=== PATIENT | female | born 1945 | race Caucasian/White ===

== ENCOUNTER 2023-11-10 12:44 | Inpatient (IN) | payer MEDICARE, OTHER, SELFPAY ==
[2023-11-10] VITALS (16 sets, daily range): BP systolic 14–123; BP diastolic 45–87; PULSE 78–97; BMI 26.8
--- NOTE | 2023-11-10 09:46 | ED.GENMED ---
History of Present Illness
<Loi Mann PA-C - Last Filed: 11/10/23 11:46>
General
Chief Complaint: Rectal Bleeding
Source: patient
Exam Limitations: none
Time Seen by Provider: 11/10/23 09:35
Travel History
Have you had any contact with someone who has COVID-19?: No
Do you have any symptoms of coronavirus? Fever > 100 degrees, chills, cough, shortness of breath, sore throat, loss of taste or smell, muscle aches, or headache?: No
History of Present Illness
History of Present Illness:
78-year-old female presents via EMS from home after 2 episodes of bright red blood per rectum overnight and this morning. She feels dizzy and lightheaded. She was noted to be pale and hide by EMS. She is not anticoagulated. She has been on
naproxen twice a day for her right hip pain. She notes half a glass of wine daily and a couple coffee daily. She denies abdominal pain. She denies rectal pain. No chest pain or shortness of breath. No other complaints at this time
Past History
<Loi Mann PA-C - Last Filed: 11/10/23 11:46>
Past History
ED Past Medical History: Asthma, CAD, Cancer (Squamous cell), GERD, HTN, Hypercholesterolemia, Valvular disease, Psychiatric (Depression) and Other (Peptic ulcer disease, aortic stenosis, chronic kidney disease, peripheral vascular disease)
ED Past Surgical History: Cholecystectomy, Orthopedic (Right and left shoulder replacement, Left humorous ), Tonsilectomy and Other (Cataracts)
Social History
Tobacco: Former smoker
Alcohol: Occasional
Drug: None
Personal:
Living: with family
Employment: Employed
Phy Exam
<Loi Mann PA-C - Last Filed: 11/10/23 11:46>
Physical Exam
Physical Exam:
General: Well-appearing female no acute respiratory distress does appear slightly pale
HEENT: Normocephalic atraumatic
Heart: Regular rate and rhythm no murmurs
Lungs: Clear no wheeze or rales
Abdomen: Soft nontender nondistended
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 There is no obvious external hemorrhoid or fissure. Stool in the tip of the glove is dark red and heme positive
Extremities: No cyanosis
Course
<Loi Mann PA-C - Last Filed: 11/10/23 11:46>
Orders/Labs/Results
Orders:
Orders
11/10/23 09:43
0.9% Sodium Chloride 1000 ml [Nss] 1,000 ml IV BOLUS
Pantoprazole [Protonix IV] 80 mg IV NOW STA
11/10/23 09:45
Pantoprazole 80 mg/100 ml Nss [Protonix] 80 mg in 100 ml IV Q10H
11/10/23 09:53
Sterile Water [Sterile Water For Injection] 20 ml .ROUTE .STK-MED
11/10/23 10:16
Type+Screen Urgent
Complete Blood Count/With Diff Urgent
Comprehensive Metabolic Panel Urgent
PTT Urgent
Prothrombin Time Urgent
Abnormal Lab Results
11/10/23
10:16
WBC 16.3 H 10^3/uL
(4.8-10.8)
RBC 3.22 L 10^6/uL
(4.20-5.40)
Hgb 9.8 L g/dL
(12.0-16.0)
Hct 28.5 L %
(37.0-47.0)
MPV 11.1 H fL
(7.4-10.4)
Abs Immat Gran (auto) 0.1 H 10^3/uL
(0-0.05)
Absolute Neuts (auto) 14.2 H 10^3/uL
(1.4-6.5)
Absolute Lymphs (auto) 1.1 L 10^3/uL
(1.2-3.4)
Absolute Monos (auto) 0.8 H 10^3/uL
(0.1-0.6)
Immature Gran % 0.8 H %
(0-0.5)
Neutrophils % 86.7 H %
(42.2-75.2)
Lymphocytes % 6.4 L %
(20.5-51.1)
Sodium 130 L mmol/L
(135-145)
Potassium 5.4 H mmol/L
(3.5-5.1)
Carbon Dioxide 19 L mmol/L
(22-30)
BUN 46 H mg/dl
(7-17)
Glucose 118 H mg/dl
(70-99)
Total Protein 5.8 L g/dl
(6.3-8.2)
11/10/23 10:16
11/10/23 10:16
Vital Signs
Initial and Last Documented VS:
Initial Vital Signs
Pulse Resp BP Pulse Ox
104 15 76/53 100
11/10/23 09:35 11/10/23 09:35 11/10/23 09:35 11/10/23 09:35
Last Documented Vital Signs
Pulse Resp BP Pulse Ox
87 21 96/52 100
11/10/23 10:30 11/10/23 10:30 11/10/23 10:22 11/10/23 09:35
<Rafael Merrill, DO - Last Filed: 11/10/23 10:45>
Orders/Labs/Results
Orders:
Orders
11/10/23 09:43
0.9% Sodium Chloride 1000 ml [Nss] 1,000 ml IV BOLUS
Pantoprazole [Protonix IV] 80 mg IV NOW STA
11/10/23 09:45
Pantoprazole 80 mg/100 ml Nss [Protonix] 80 mg in 100 ml IV Q10H
11/10/23 09:53
Sterile Water [Sterile Water For Injection] 20 ml .ROUTE .STK-MED
11/10/23 10:16
Type+Screen Urgent
Complete Blood Count/With Diff Urgent
Comprehensive Metabolic Panel Urgent
PTT Urgent
Prothrombin Time Urgent
Abnormal Lab Results
11/10/23
10:16
WBC 16.3 H 10^3/uL
(4.8-10.8)
RBC 3.22 L 10^6/uL
(4.20-5.40)
Hgb 9.8 L g/dL
(12.0-16.0)
Hct 28.5 L %
(37.0-47.0)
MPV 11.1 H fL
(7.4-10.4)
Abs Immat Gran (auto) 0.1 H 10^3/uL
(0-0.05)
Absolute Neuts (auto) 14.2 H 10^3/uL
(1.4-6.5)
Absolute Lymphs (auto) 1.1 L 10^3/uL
(1.2-3.4)
Absolute Monos (auto) 0.8 H 10^3/uL
(0.1-0.6)
Immature Gran % 0.8 H %
(0-0.5)
Neutrophils % 86.7 H %
(42.2-75.2)
Lymphocytes % 6.4 L %
(20.5-51.1)
Sodium 130 L mmol/L
(135-145)
Potassium 5.4 H mmol/L
(3.5-5.1)
Carbon Dioxide 19 L mmol/L
(22-30)
BUN 46 H mg/dl
(7-17)
Glucose 118 H mg/dl
(70-99)
Total Protein 5.8 L g/dl
(6.3-8.2)
11/10/23 10:16
11/10/23 10:16
Vital Signs
Initial and Last Documented VS:
Initial Vital Signs
Pulse Resp BP Pulse Ox
104 15 76/53 100
11/10/23 09:35 11/10/23 09:35 11/10/23 09:35 11/10/23 09:35
Last Documented Vital Signs
Pulse Resp BP Pulse Ox
87 21 96/52 100
11/10/23 10:30 11/10/23 10:30 11/10/23 10:22 11/10/23 09:35
Procedures
<Rafael Merrill DO - Last Filed: 11/10/23 10:45>
IV Access
Indication: Physician skill needed
Performed by:: Rafael Merrill DO
Site:: left arm
Gauge:: 18
Ultrasound Guidance: Yes
<Loi Mann PA-C - Last Filed: 11/10/23 11:46>
MDM/Problems Addressed
Differential Diagnosis Includes:
Rectal bleeding. Consider hemorrhoidal versus diverticular versus rapid upper GI bleed. Patient is hypotensive here. She has heme positive stool on exam. Will check labs. Start fluids. Blood consent signed. Will likely need to stay in hospital
<Loi Mann PA-C - Last Filed: 11/10/23 11:46>
*Critical Care Note
Total Time (30-74mins, 75-104mins- exclusive of procedures): Not Applicable
<Loi Mann PA-C - Last Filed: 11/10/23 11:46>
Update Note
Update Note:
Hemoglobin 9.8. BUN 46 creatinine 0.9. Blood pressure improving with fluids. Heart rate has normalized. Restarted Protonix and had her sign blood consent. Will admit to hospital with GI consult
ED Attending Note
<Loi Mann PA-C - Last Filed: 11/10/23 11:46>
-
Portions of this chart may have been created with voice recognition software.� Occasional wrong word or��sound alike� substitutions may have occurred due to the inherent limitations of voice recognition software.
<Rafael Merrill DO - Last Filed: 11/10/23 10:45>
ED Attending Note
Patient seen and examined by attending physician: Yes
I performed the substantive portion of visit, reviewed & personally made and approve the management plan that is documented in note by myself or MATTHEW.: Yes
ED Attending Note:
I have seen and evaluated the patient with a [id number] encounter. I have spoken to the advance practicer provider and involved in the medical history, the physical exam, medical decision making.
Evaluation and management service: agree unless noted differently below.
Results interpretation: agree unless noted differently below.
Focused HPI: 78-year-old female presenting with few episodes of dark red rectal bleeding. Patient denies being on blood thinners. The bleeding occurs with defecation. She denies abdominal pain
Physical exam: Pale. Hypotensive. Abdomen soft and nontender
Medical Decision Making: Patient has evidence of GI bleed. Patient started on Protonix drip. Patient requiring 2 peripheral IV lines. She is consented for blood with hemoglobin pending
Discharge Plan
Departure
Patient Disposition: Admit
Date of Disposition: 11/10/23
Time of Disposition: 11:45
Admit to: Telemetry
Presentation/result/management discussed w/ accepting MD/DO: Hospitalist
Discharge Problem:
Acute GI bleeding
Prescriptions:
No Action
zolpidem [Ambien] 5 mg Tablet
5 mg PO HS PRN (Reason: sleep)
escitalopram oxalate 20 mg Tablet
20 mg PO DAILY
bupropion HCl 300 mg Tablet Extended Release 24 Hr
300 mg PO DAILY
simvastatin 10 mg Tablet
10 mg PO HS
olanzapine [Zyprexa] 2.5 mg Tablet
2.5 mg PO HS
lisinopril 20 mg Tablet
20 mg PO DAILY
aspirin 81 mg Tablet,Delayed Release (Dr/Ec)
81 mg PO HS
naproxen 500 mg Tablet
500 mg PO [id number] PRN (Reason: radiculopathy, lumbar region)
biotin
1 tab PO HS
melatonin
2 tab PO HSPRN PRN (Reason: sleep)
Patient Comments:
11/10/2023, sublingual dissolvable tablets per pt.
acetaminophen [Pain Relief ES (acetaminophen)] 500 mg tablet
1,000 mg PO TID PRN (Reason: mild pain)
Referrals:
Jonathan Chaney MD [Family Provider] -
Interventions
Interventions:
*Risk Screen - Suicide Last Done: 11/10/23 09:35
*General Assessment Last Done: 11/10/23 09:35
*Neglect/Abuse Screening Last Done: 11/10/23 09:35
*ED COVID-19 Vaccine History Last Done: 11/10/23 09:47
Discharge Date and Time
Print Language: MONGOLIAN
[2023-11-10] MEDS: NSS 1000 IV ×2 (10:19→15:12)
[2023-11-10] MEDS: PROTONIX 100 IV (10:20)
[2023-11-10] MEDS: PROTONIX IV 80 MG IV (10:20)
[2023-11-10 10:23] LABS: % Basophils 0.7 % (0-2); % Eosinophils 0.6 % (0-6); % Immature Granulocytes 0.8 % (0-0.5); % Lymphocytes 6.4 % (20.5-51.1); % Monocytes 4.8 % (1.7-9.3); % Neutrophils 86.7 % (42.2-75.2); Absolute Basophils 0.1 10^3/uL (0-0.2); Absolute Eosinophils 0.1 10^3/uL (0-0.7); Absolute Immature Granulocytes 0.1 10^3/uL (0-0.05); Absolute Lymphocytes 1.1 10^3/uL (1.2-3.4); Absolute Monocytes 0.8 10^3/uL (0.1-0.6); Absolute Neutrophils 14.2 10^3/uL (1.4-6.5); Hematocrit 28.5 % (37.0-47.0); Hemoglobin 9.8 g/dL (12.0-16.0); Mean Corp Hgb Conc. 34.4 g/dL (33.0-37.0); Mean Corpuscular Hgb 30.4 pg (27.0-31.0); Mean Corpuscular Volume 88.5 fL (81.0-99.0); Mean Platelet Volume 11.1 fL (7.4-10.4); Nucleated Red Blood Cells % 0 %; Platelet Count 357 10^3/uL (130-400); Red Blood Cell Count 3.22 10^6/uL (4.20-5.40); Red Cell Dist. Width 14.5 % (11.5-14.5); White Blood Cell Count 16.3 10^3/uL (4.8-10.8)
[2023-11-10 10:52] LABS: INR 1.11; PT 14.3 Sec (11.4-14.6)
[2023-11-10 10:53] LABS: APTT 23.6 Sec (23.4-35.0)
[2023-11-10 11:04] LABS: ALT (SGPT) 17 U/L (0-35); AST (SGOT) 24 U/L (14-36); Albumin 3.8 g/dl (3.5-5.0); Alkaline Phosphatase 92 U/L (38-126); Blood Urea Nitrogen 46 mg/dl (7-17); Calcium 9.5 mg/dl (8.4-10.2); Carbon Dioxide 19 mmol/L (22-30); Chloride 102 mmol/L (98-107); Estimated Creatinine Clearance 41 ml/min; Glucose 118 mg/dl (70-99); Potassium 5.4 mmol/L (3.5-5.1); Sodium 130 mmol/L (135-145); Total Bilirubin 0.4 mg/dl (0.2-1.3); Total Protein 5.8 g/dl (6.3-8.2); eGFR > 60.00
--- NOTE | 2023-11-10 12:17 | HPS.HSE ---
Addendum entered and electronically signed by Israel Estrada MD 11/10/23 13:57:
seen and examined by me independently in collaboration with the [facility]
Past medical history/social history/medication/allergies reviewed.
Lab data and imaging data reviewed.
Patient presents with acute onset of rectal bleeding. Mostly red to maroon in color rectal bleeding. she had associated dizziness. She was noted to be hypotensive in the ER which resolved with IV fluids.
Yesterday she was feeling queasy in her abdomen. She did not eat much. She has been using NSAIDs for back pain lately.
No prior history of GI bleed. Not on any oral anticoagulants other than aspirin.
Abdomen soft.
Currently hemodynamically stable.
Unclear etiology of GI bleed.
With NSAID use evaluate for upper GI source. Consult GI.
Start on PPI twice daily.
Follow H&H closely.
Original Note:
Family Physician
-
Family Physician: Jonathan Chaney
Chief Complaint
-
Rectal Bleeding
History of Present Illness
Patient is an 78 y/o female past medical history of aortic stenosis, hypertension and anxiety/depression who presents with rectal bleeding. Patient reports she awoke in the middle of the night to use the bathroom. She had a bowel movement and
noticed the toilet was full of blood mixed with stool. She went back to bed, but then had a second episode upon waking this morning. She also noticed dizziness/lightheadedness which prompted her to call 911. She denies any prior history of GI
bleed, but states she did have an ulcer in her small intestine about 3 years ago. She admits to using NSAIDs recently for hip/back pain.
Medical History
Past Medical History
Past Medical History: Reports Other
Additional Past Medical History:
Hypertension
Aortic Stenosis
ASCVD with Non-Obstructive CAD seen on prior cath - no prior [place], stent, etc.
Anxiety / Depression
DJD
Dyslipidemia
Past Surgical History: Reports Other
Additional Past Surgical History:
Bilateral TSA
Left TKA
Cholecystectomy
T&A
Ovarian Cystectomy
Cataracts
Social History
Tobacco: Former Smoker (Quit smoking 30+ years ago. Approx 30 pack years total use.)
Alcohol: Daily (1 glass wine daily.)
Drug: None
Family History
Family History: Not pertinent
Allergies / Home Medications
Allergies reflects when Allergies were last updated in [facility].
Home Medications with original date entered in [facility]
Allergy/Medication List:
Allergies
Allergy/AdvReac Type Severity Reaction Status Date / Time
pollen extracts Allergy nasal Verified 11/10/23 09:39
congestion
Home Medications
bupropion HCl 300 mg 24 hr tablet, extended release 300 mg PO DAILY Depression 06/01/22
escitalopram oxalate 20 mg tablet 20 mg PO DAILY Depression 06/01/22
zolpidem 5 mg tablet (Ambien) 5 mg PO HS PRN sleep 06/01/22
olanzapine 2.5 mg tablet (Zyprexa) 2.5 mg PO HS Lung/Breathing Issues 07/25/23
simvastatin 10 mg tablet 10 mg PO HS High Cholesterol 07/25/23
acetaminophen 500 mg tablet (Pain Relief Extra Strength (acetaminophen)) 1,000 mg PO TID PRN mild pain 11/10/23
aspirin 81 mg tablet,delayed release 81 mg PO HS 11/10/23
biotin 1 tab PO HS 11/10/23
lisinopril 20 mg tablet 20 mg PO DAILY 11/10/23
melatonin 2 tab PO HSPRN PRN sleep 11/10/23
naproxen 500 mg tablet 500 mg PO [id number] PRN radiculopathy, lumbar region 11/10/23
Review of Systems
-
A 12 point ROS was completed and negative except as noted: Yes
Constitutional: Denies Fever or Chills
Respiratory: Denies Cough or Trouble Breathing
Cardiac: Denies Chest Pain or Palpitations
Abdomen/GI: Reports Bloody Stools; Denies Abdominal Pain, Nausea or Vomiting
Physical Exam
Vital Signs
Vital Signs
Pulse Resp BP Pulse Ox
87 21 96/52 100
11/10/23 10:30 11/10/23 10:30 11/10/23 10:22 11/10/23 09:35
Physical Exam
General: Comfortable and Conversant
HEENT: Anicteric and Moist mucous membranes
Respiratory: Clear and Non Labored Respirations
Cardiac: S1/S2, Regular Rhythm and Murmur (3/6 systolic murmur heard best at right upper sternal border)
GI: Soft and Non Tender
Rectal: Other (Maroon, Heme-Positive per ED provider)
Genito-urinary: Deferred by me
Musculoskeletal: No Clubbing, No Cyanosis and No Edema
Skin: Warm and Dry
Neuro: Awake, Alert, Oriented and Nonfocal/grossly intact
Laboratory Results
-
11/10/23 10:16
11/10/23 10:16
Laboratory Results
PT 14.3 Sec (11.4-14.6) 11/10/23 10:16
INR 1.11 11/10/23 10:16
APTT 23.6 Sec (23.4-35.0) 11/10/23 10:16
Total Bilirubin 0.4 mg/dl (0.2-1.3) 11/10/23 10:16
AST 24 U/L (14-36) 11/10/23 10:16
ALT 17 U/L (0-35) 11/10/23 10:16
Alkaline Phosphatase 92 U/L (38-126) 11/10/23 10:16
Data Reviewed
-
Lab Data: Labs Reviewed by me
Old Records: Reviewed
Impression/Plan
-
GI Bleed
-Consult GI
-Continue PPI IV BID
-Continue NPO pending GI eval
Acute Blood Loss Anemia
-Continue to trend Hgb
Hyperkalemia
-Give IVFs
-Hold lisinopril
-Monitor potassium level
ASCVD with Non-Obstructive CAD
-Hold aspirin in setting of bleeding
Moderate/Severe Aortic Stenosis
-Monitor Is&Os and Daily Weights
Essential Hypertension
-Lisinopril on hold due to hypotension upon presentation and hyperkalemia
-Monitor BP
Hyperlipidemia
-Hold simvastatin for now
Anxiety / Depression / Insomnia
-Continue Lexapro, bupropion and Zyprexa
-Continue Ambien prn
DVT proph: SCDs
Code Status: Full Code
--- NOTE | 2023-11-10 13:19 | CON.GI ---
Addendum entered and electronically signed by Jeremie Stubbs MD 11/10/23 15:03:
I saw and examined the patient.
The BETA TESTER or PA's note was reviewed and I agree with the note.
Comment: 78-year-old female past medical history as below taking naproxen regularly here with rectal bleeding. Started last night. Had some dizziness. She was also found to be hypotensive on admission to 70s. Per patient was told she had an
ulcer in the past when she had her gallbladder out but never had an upper endoscopy. Did have a colonoscopy a few years ago.
Plan for urgent endoscopy today given Hypotension with bright red blood may have rapid upper GI bleed. With NSAID use could have a peptic ulcer disease. BUN elevated. May also have a lower GI bleed such as diverticular bleed. Continue PPI drip,
plan for endoscopy today, risk, alternatives, benefits including but not limited to bleeding, infection, perforation, anesthesia risks discussed with patient, patient is agreeable. Further recommendations pending EGD.
Original Note:
Consultation
-
Date/Time Consultation Requested: 11/10/23 1200
Date/Time Consultation Performed: 11/10/23 1320
Requesting Provider: serena Kurtz PA-C
Performing Provider: JOYCE Garcia, Lou Stubbs MD
Reason for Consultation: rectal bleeding
Medical History
Chief Complaint / HPI
Chief Complaint: rectal bleeding
History of Present Illness:
Pt is an 78yo presents with hx HTN, hypercholesterolemia, , anxiety, depression, DJD, with recent fall and arm fractures several weeks ago. She recently was dealing with back pain and taking Naproxen for last 2 weeks. She states she awoke in
middle of the night with brown stool and red blood in toilet. She then had further stool this am and noted dizziness. On admission hbg 9.8 down from 8-11 range in July and BUN up to 46. No hx EGD in past. Last colonoscopy 3 years ago at
[facility] recalls as normal.
Pt denies dysphagia, GERD,nausea, vomiting, abdominal pain, diarrhea, constipation prior to admission.
Past Medical History
Past Medical History: HTN, Hypercholesterolemia, Valvular Disease (Aortic stenosis), Psychiatric (anxiety/depression) and Other (DJD)
Past Surgical History: Cholecystectomy, Gynecological (ovarian cystectomy), Orthopedic (b/l Total shoulder arthroscopy, left TKA), Tonsilectomy and Other (cararacts )
Social History
Tobacco: Non-Smoker
Alcohol: Daily (1 glass daily)
Drug: None
Personal:
Living: With Family
Employment: Retired
Family History
Family History: Reviewed & Not Pertinent
Allergies / Home Medications
Allergy/AdvReac Type Severity Reaction Status Date / Time
pollen extracts Allergy nasal Verified 11/10/23 09:39
congestion
�Medication �Instructions �Recorded
bupropion HCl 300 mg 24 hr tablet, 300 mg PO DAILY Depression 06/01/22
extended release
escitalopram oxalate 20 mg tablet 20 mg PO DAILY Depression 06/01/22
zolpidem 5 mg tablet (Ambien) 5 mg PO HS PRN sleep 06/01/22
olanzapine 2.5 mg tablet (Zyprexa) 2.5 mg PO HS Lung/Breathing Issues 07/25/23
simvastatin 10 mg tablet 10 mg PO HS High Cholesterol 07/25/23
acetaminophen 500 mg tablet (Pain 1,000 mg PO TID PRN mild pain 11/10/23
Relief Extra Strength
(acetaminophen))
aspirin 81 mg tablet,delayed 81 mg PO HS 11/10/23
release
biotin 1 tab PO HS 11/10/23
lisinopril 20 mg tablet 20 mg PO DAILY 11/10/23
melatonin 2 tab PO HSPRN PRN sleep 11/10/23
naproxen 500 mg tablet 500 mg PO [id number] PRN 11/10/23
radiculopathy, lumbar region
Review of Systems
-
History Source: Patient and Family
Constitutional: Reports No Symptoms
EENT: Reports No Symptoms
Respiratory: Reports No Symptoms
Cardiac: Reports No Symptoms
Abdomen/GI: Reports Abdominal Pain (crampy pain ) and Bloody Stools
: Reports No Symptoms
Musculoskeletal: Reports No Symptoms
Skin: Reports No Symptoms
Neurological: Reports No Symptoms
Endocrine: Reports No Symptoms
Hematologic/Lymphatic: Reports Bleeding
Vital Signs
Pulse Resp BP Pulse Ox
87 21 96/52 100
11/10/23 10:30 11/10/23 10:30 11/10/23 10:22 11/10/23 09:35
Physical Exam
Exam
General: Well Developed, Well Nourished and No Apparent Distress
HEENT: Normocephalic and Moist Mucous Membranes
Cardiac: Regular Rhythm
GI: Soft, Non Tender and Non Distended
Musculoskeletal: No Clubbing and No Cyanosis
Skin: Warm and Dry
Neuro: Awake, Alert and AO x 3
Psych: Calm
Results
WBC 16.3 10^3/uL (4.8-10.8) H 11/10/23 10:16
Hgb 9.8 g/dL (12.0-16.0) L 11/10/23 10:16
Hct 28.5 % (37.0-47.0) L 11/10/23 10:16
MCV 88.5 fL (81.0-99.0) 11/10/23 10:16
Plt Count 357 10^3/uL (130-400) 11/10/23 10:16
Absolute Neuts (auto) 14.2 10^3/uL (1.4-6.5) H 11/10/23 10:16
PT 14.3 Sec (11.4-14.6) 11/10/23 10:16
INR 1.11 11/10/23 10:16
APTT 23.6 Sec (23.4-35.0) 04/03/24 10:16
Sodium 130 mmol/L (135-145) L 11/10/23 10:16
Potassium 5.4 mmol/L (3.5-5.1) H 11/10/23 10:16
Chloride 102 mmol/L (98-107) 11/10/23 10:16
Carbon Dioxide 19 mmol/L (22-30) L 11/10/23 10:16
BUN 46 mg/dl (7-17) H 11/10/23 10:16
Creatinine 0.9 mg/dL (0.6-1.0) 11/10/23 10:16
Calcium 9.5 mg/dl (8.4-10.2) 11/10/23 10:16
Total Bilirubin 0.4 mg/dl (0.2-1.3) 11/10/23 10:16
AST 24 U/L (14-36) 11/10/23 10:16
ALT 17 U/L (0-35) 11/10/23 10:16
Alkaline Phosphatase 92 U/L (38-126) 11/10/23 10:16
Diagnostic Image Results:
no CT done
Prior GI Procedures:
EGD: none
Colonoscopy: 3 years ago normal pt recalls at [facility]
Assessment / Plan
-
Pt is an 78yo presents with hx HTN, hypercholesterolemia, , anxiety, depression, DJD, with recent fall and arm fractures several weeks ago. She recently was dealing with back pain and taking Naproxen for last 2 weeks. She states she awoke in
middle of the night with brown stool and red blood in toilet. She then had further stool this am and noted dizziness. On admission hbg 9.8 down from 8-11 range in July and BUN up to 46. No hx EGD in past. Last colonoscopy 3 years ago at
[facility] recalls as normal. No anticoagulation use.
-rectal bleeding
-recent NSAID use for back pain
-recent arm fracture
-BUN elevation
-anemia
-leukocytosis
-hyponatremia
-hyperkalemia on admission
other med problems:
-HTN
-hypercholesterolemia
-
-anxiety/depression
-DJD
PLAN:
etiology of bleeding related to aggressive upper GI bleed with dizziness and BUN elevation, vs lower (diverticular bleed, colitis with mild WBC elevation vs SB bleed
plan for EGD today
if neg and increased bleeding consider CTA
trend hbg and WBC's
NPO
family updated at bedside
will follow
-
-
Thank you for consultation and allowing me to participate in the patient's care. Please call the [facility] operator GI physician during the after hours with any questions or concerns.
--- NOTE | 2023-11-10 15:03 | W.PN.UPDATE ---
Update Note
Progress Note Update
billing purposes
[2023-11-10 18:26] LABS: Hematocrit 21.8 % (37.0-47.0); Hemoglobin 7.7 g/dL (12.0-16.0)
[2023-11-10 18:47] LABS: Blood Urea Nitrogen 44 mg/dl (7-17); Calcium 8.9 mg/dl (8.4-10.2); Carbon Dioxide 19 mmol/L (22-30); Chloride 105 mmol/L (98-107); Estimated Creatinine Clearance 41 ml/min; Glucose 99 mg/dl (70-99); Potassium 4.5 mmol/L (3.5-5.1); Sodium 132 mmol/L (135-145); eGFR > 60.00
[2023-11-10] MEDS: PROTONIX IV 40 MG IV (20:17)
[2023-11-10] MEDS: NSS (PRESERVATIVE FREE) 10 ML IV (20:17)
[2023-11-10] MEDS: ZYPREXA 2.5 MG PO (22:59)
[2023-11-11] VITALS (12 sets, daily range): BP systolic 95–177; BP diastolic 54–84; PULSE 79–106
[2023-11-11] LABS: Hematocrit 20.3 % (37.0-47.0); Hemoglobin 6.9 g/dL (12.0-16.0)
--- NOTE | 2023-11-11 00:16 | W.PN.UPDATE ---
Update Note
Progress Note Update
hgb dropped down from 9.8--> 7.7 to 6.9 now. Vital signs within normal limits, one unit of blood ordered and will continue monitoring h&h and transferring as needed
--- NOTE | 2023-11-11 03:00 | PTCARENOTE ---
Pt hgb 6.9 Hct 20.3. RN notifed FENCE INSTALLER- ordered 1 unit PRBC. RN transfused 1 unit PRBC. Pt tolerated transfusion w/ no reaction and is resting comfortably w/ call reaves within reach.
[2023-11-11 04:23] LABS: Hematocrit 23.4 % (37.0-47.0); Mean Corp Hgb Conc. 34.2 g/dL (33.0-37.0); Mean Corpuscular Hgb 30.4 pg (27.0-31.0); Mean Platelet Volume 11.2 fL (7.4-10.4); Platelet Count 201 10^3/uL (130-400); Red Blood Cell Count 2.63 10^6/uL (4.20-5.40); White Blood Cell Count 12.4 10^3/uL (4.8-10.8)
[2023-11-11 04:45] LABS: Blood Urea Nitrogen 38 mg/dl (7-17); Calcium 8.4 mg/dl (8.4-10.2); Carbon Dioxide 22 mmol/L (22-30); Chloride 109 mmol/L (98-107); Estimated Creatinine Clearance 41 ml/min; Glucose 94 mg/dl (70-99); Sodium 133 mmol/L (135-145); eGFR > 60.00
[2023-11-11] MEDS: NSS 1000 IV ×3 (05:55→22:05)
[2023-11-11] MEDS: NSS (PRESERVATIVE FREE) 10 ML IV (08:22)
[2023-11-11] MEDS: LEXAPRO 20 MG PO (08:22)
[2023-11-11] MEDS: WELLBUTRIN XL (24 hour extended release) 300 MG PO (08:22)
[2023-11-11] MEDS: PROTONIX IV 40 MG IV (08:22)
[2023-11-11] MEDS: ZESTRIL 20 MG PO (10:46)
--- NOTE | 2023-11-11 10:49 | W.PN.GI.CBS2 ---
Addendum entered and electronically signed by Jeremie Stubbs MD 11/11/23 13:55:
I saw and examined the patient.
The MILLWRIGHT SUPERVISOR or PA's note was reviewed and I agree with the note.
Comment: 78 yo F here with BRB and hypotension found to have large DU with flat pigmented spot no active bleeding no endoscopic therapy. Bile in stomach and small bowel.
Drop in Hb last night rec'd 1UPRBC.
Small amount of blood this AM.
Continue PPI gtt.
Will allow regular diet today npo after midnight.
If ongoing drop in Hb, active bleeding plan re-look with EGD tomorrow.
If Hb stable, no further bleeding, ok for DC tomorrow and repeat CBC one week outpatient.
H. pylori ordered but suspect NSAID induced.
Counseled pt to avoid NSAIDs.
Original Note:
Today's Communication / Plan
-
s/p EGD with non bleeding DU with flat pigmented spot forest class IIC
some drop in hgb overnight requiring transfusion but no further stool-- some red blood with wiping
some dizziness with getting out of bed
trend hbg and WBC's, BUN trending down
will repeat H/H at 1600
cont clear diet
restart PPI gtt with drop in hbg and dizziness
discussed NSAID avoidance
family updated at bedside
cont to monitor over next 24 hours and ability for d/c in AM
did discuss after discharge if any further bleeding, dizziness to return to ER as risk of rebleeding
reviewed with Dr. Estrada and nursing staff
Assessment / Plan
-
Pt is an 78yo presents with hx HTN, hypercholesterolemia, , anxiety, depression, DJD, with recent fall and arm fractures several weeks ago. She recently was dealing with back pain and taking Naproxen for last 2 weeks. She states she awoke in
middle of the night with brown stool and red blood in toilet. She then had further stool this am and noted dizziness. On admission hbg 9.8 down from 8-11 range in July and BUN up to 46. No hx EGD in past. Last colonoscopy 3 years ago at
[facility] recalls as normal. No anticoagulation use.
4/3 EGD- - Medium-sized hiatal hernia. normal stomach, non bleeding DU with flat pigmented spot forest class IIC, normal duodenum
-rectal bleeding with concern for non bleeding large DU with flat spot
-symptomatic anemia
-recent NSAID use for back pain
-recent arm fracture
-BUN elevation
-leukocytosis
-hyponatremia
-hyperkalemia on admission
other med problems:
-HTN
-hypercholesterolemia
-
-anxiety/depression
-DJD
PLAN:
s/p EGD with non bleeding DU with flat pigmented spot forest class IIC
some drop in hgb overnight requiring transfusion but no further stool-- some red blood with wiping
some dizziness with getting out of bed
trend hbg and WBC's, BUN trending down
will repeat H/H at 1600
cont clear diet
restart PPI gtt with drop in hbg and dizziness
discussed NSAID avoidance
family updated at bedside
cont to monitor over next 24 hours and ability for d/c in AM
did discuss after discharge if any further bleeding, dizziness to return to ER as risk of rebleeding
Subjective
Subjective
Date of Service: November 11, 2023
4/3 bloody stools no further stools overnight but did see some red with wiping also some dizziness this am
Objective
Data Reviewed
Laboratory Data:
Laboratory Results
11/11/23 04:10
11/11/23 04:10
Laboratory Results
PT 14.3 Sec (11.4-14.6) 11/10/23 10:16
INR 1.11 11/10/23 10:16
APTT 23.6 Sec (23.4-35.0) 11/10/23 10:16
Total Bilirubin 0.4 mg/dl (0.2-1.3) 11/10/23 10:16
AST 24 U/L (14-36) 11/10/23 10:16
ALT 17 U/L (0-35) 11/10/23 10:16
Alkaline Phosphatase 92 U/L (38-126) 11/10/23 10:16
Vital Signs and I&O:
Vital Signs
Temp Pulse Resp BP Pulse Ox
97.8 F 65 18 177/78 100
11/11/23 07:30 11/11/23 07:30 11/11/23 07:30 11/11/23 07:30 11/11/23 07:30
I&O
11/10/23 11/11/23 11/12/23
06:59 06:59 06:59
Intake Total 980 / 980
Balance 980 / 980
Physical Exam
Physical Exam
HEENT: Anicteric and Moist mucous membranes
Cardiology: Normal Sinus Rhythm
Pulmonary: Clear
GI: Soft, Non Distended and Non Tender
Extremities: No Edema
Neuro: Non Focal
--- NOTE | 2023-11-11 10:54 | W.PN.HOSP.TC ---
Today's Communication/Plan
-
CW PPI
Advance diet per GI
Assessment / Plan
Assessment / Plan
Acute GI Bleed
? DU related
Endoscopy showed 1 nonbleeding cratered duodenal ulcer with a flat pigmented spot in the duodenal bulb. The lesion was 15 mm and very deep. Will check with GI if this is the culprit lesion. Continue with PPI. Patient currently on clear liquid
diet. Advance as tolerated by GI. Patient has been using NSAIDs before presentation.
Acute Blood Loss Anemia
s/p one unit of PRBC
-Continue to trend Hgb
Leukocytosis -suspect reactive to GI bleed. Improving without any antimicrobial treatments.
Hyponatremia-suspect possibly volume related. Elevated BUN on adx noted. Improving with volume supplementation. If recurrent check urine lites.
Hyperkalemia
- Normalized
- Monitor potassium level
ASCVD with Non-Obstructive CAD
-Hold aspirin in setting of bleeding-resume when ok from GI
Moderate/Severe Aortic Stenosis
-Monitor Is&Os and Daily Weights
Essential Hypertension
-Resume Lisinopril
-Monitor BP
Hyperlipidemia
-Hold simvastatin for now
Anxiety / Depression / Insomnia
-Continue Lexapro, bupropion and Zyprexa
-Continue Ambien prn
DVT proph: SCDs
Code Status: Full Code
Anticipated Discharge: Within 24 hours
Subjective/Interval History
-
Date of Service: November 11, 2023
Status post EGD yesterday.
Denies any nausea vomiting or abdominal pain. No further rectal bleeding.
No dizziness.
Objective Data
-
Labs:
Laboratory Results
11/10/23 11/11/23 11/11/23
23:47 04:10 04:10
WBC 12.4 H
Hgb 6.9 L* 8.0 L Cancelled
Hct 20.3 L* 23.4 L
Plt Count
Sodium
Potassium
Chloride
Carbon Dioxide
BUN
Creatinine
Glucose
Calcium
11/11/23
04:10
WBC
Hgb
Hct Cancelled
Plt Count 201 D
Sodium 133 L
Potassium 4.0
Chloride 109 H
Carbon Dioxide 22
BUN 38 H
Creatinine 0.9
Glucose 94
Calcium 8.4
Vital Signs:
Vital Signs
Temp Pulse Resp BP Pulse Ox
97.8 F 65 18 177/78 100
11/11/23 07:30 11/11/23 10:46 11/11/23 07:30 11/11/23 10:46 11/11/23 07:30
I&O
11/10/23 11/11/23 11/12/23
06:59 06:59 06:59
Intake Total 980 / 980
Balance 980 / 980
Review of Systems
-
Constitutional: Denies Fever or Chills
Respiratory: Denies Trouble Breathing
Cardiac: Denies Chest Pain
Physical Exam
-
General: Comfortable
HEENT: Moist Mucous Membranes
Respiratory: Clear to Auscultation
Cardiac: Regular Rhythm and S1/S2; Negative Tachycardic
GI: Soft, Nontender, Nondistended and Normal Bowel Sounds
Neuro: AO x 3
Psych: Calm; Negative Confused
Data Reviewed
-
Labs: Labs Reviewed by me
[2023-11-11] MEDS: PROTONIX 100 IV ×2 (11:40→21:34)
--- NOTE | 2023-11-11 12:35 | PTCARENOTE ---
Patient with soft formed BM with scant amount of bright red blood. Started on Protonix gtt as ordered. Patient maintained on clear liquids. HGB this morning 8.0. IVF maintained as ordered - NSS at 100 mls/hour. Patient denies abdominal pain. GI team
aware of continued melena.
--- NOTE | 2023-11-11 13:55 | W.PN.UPDATE ---
Update Note
Progress Note Update
billing purposes
[2023-11-11 15:58] LABS: Hematocrit 24.9 % (37.0-47.0); Hemoglobin 8.6 g/dL (12.0-16.0)
--- NOTE | 2023-11-11 16:42 | CM ---
architect manager reviewed patient's chart and patient resides at independent with living at [facility], with spouse, patient is independent with adl's and ambulation, patient has a cane and walker for dme, [facility] pharmacy.
PCP: Dr Chaney
Plan; Back to the [facility] with spouse when stable.
[2023-11-11] MEDS: TYLENOL 1000 MG PO (21:30)
[2023-11-11] MEDS: ZYPREXA 2.5 MG PO (21:31)
[2023-11-11] MEDS: AMBIEN 5 MG PO (22:33)
[2023-11-12 03:07] VITALS: BP 159/80
[2023-11-12] MEDS: PROTONIX 100 IV ×2 (07:08→16:33)
--- NOTE | 2023-11-12 07:13 | W.PN.GI.CBS2 ---
Today's Communication / Plan
-
See assessment and plan for details.
Assessment / Plan
-
1. Duodenal ulcer: Likely secondary to NSAIDs with significant bleeding initially, though now doing well overall with no further gross bleeding. At this point will await morning hemoglobin and if stable will readvance diet and is okay to DC from
GI standpoint with PPI twice daily and avoiding NSAIDs. Will follow-up in the office in 1 month, consider repeat endoscopy in around 2 months to document healing, though likely would have to be as an outpatient in the hospital given her moderate to
severe aortic stenosis. If her hemoglobin is decreasing then would plan repeat endoscopy today though I think this is less likely.
Subjective
Subjective
Date of Service: November 12, 2023
Patient feeling well, still some weakness when standing no lightheadedness, abdominal pain, nausea or vomiting. 1 small bowel movement yesterday with some bright red blood on the outside though none overnight or this morning.
Objective
Data Reviewed
Laboratory Data:
Laboratory Results
PT 14.3 Sec (11.4-14.6) 11/10/23 10:16
INR 1.11 11/10/23 10:16
APTT 23.6 Sec (23.4-35.0) 11/10/23 10:16
Total Bilirubin 0.4 mg/dl (0.2-1.3) 11/10/23 10:16
AST 24 U/L (14-36) 11/10/23 10:16
ALT 17 U/L (0-35) 11/10/23 10:16
Alkaline Phosphatase 92 U/L (38-126) 11/10/23 10:16
Vital Signs and I&O:
Vital Signs
Temp Pulse Resp BP Pulse Ox
97.8 F 98 18 159/80 99
11/12/23 03:07 11/12/23 03:07 11/12/23 03:07 11/12/23 03:07 11/12/23 03:07
I&O
11/11/23 11/12/23 11/13/23
06:59 06:59 06:59
Intake Total 980 / 980 0 / 2280
Balance 980 / 980 2279 / 2279
Physical Exam
Physical Exam
General: NAD
Abdomen: normal bowel sounds, soft, no tenderness, no masses or bruits, no ascites
[2023-11-12 07:57] VITALS: BP 148/80
[2023-11-12] MEDS: LEXAPRO 20 MG PO (08:55)
[2023-11-12] MEDS: ZESTRIL 20 MG PO (08:55)
[2023-11-12] MEDS: WELLBUTRIN XL (24 hour extended release) 300 MG PO (08:55)
[2023-11-12 09:57] LABS: Hematocrit 22.8 % (37.0-47.0); Hemoglobin 7.5 g/dL (12.0-16.0); Mean Corp Hgb Conc. 32.9 g/dL (33.0-37.0); Mean Corpuscular Hgb 29.9 pg (27.0-31.0); Mean Corpuscular Volume 90.8 fL (81.0-99.0); Mean Platelet Volume 11.7 fL (7.4-10.4); Platelet Count 185 10^3/uL (130-400); Red Blood Cell Count 2.51 10^6/uL (4.20-5.40); Red Cell Dist. Width 15.9 % (11.5-14.5); White Blood Cell Count 10.5 10^3/uL (4.8-10.8)
[2023-11-12 10:25] LABS: Blood Urea Nitrogen 21 mg/dl (7-17); Calcium 8.7 mg/dl (8.4-10.2); Carbon Dioxide 20 mmol/L (22-30); Chloride 106 mmol/L (98-107); Estimated Creatinine Clearance 46 ml/min; Glucose 90 mg/dl (70-99); Potassium 3.9 mmol/L (3.5-5.1); Sodium 134 mmol/L (135-145); eGFR > 60.00
--- NOTE | 2023-11-12 11:21 | W.PN.HOSP.TC ---
Addendum entered and electronically signed by Israel Estrada MD 11/12/23 16:45:
Rpt HH stable
No rectal bleeding ;HD stable
Cleared for dc by GI
DC home today
Total time of dc 32 min
Original Note:
Today's Communication/Plan
-
Repeat EGD
Follow H&H
Assessment / Plan
Assessment / Plan
Acute GI Bleed
Possibly DU related
NSAIDs before presentation.
Endoscopy showed 1 nonbleeding cratered duodenal ulcer with a flat pigmented spot in the duodenal bulb. The lesion was 15 mm and very deep. Continue with PPI. Patient currently on clear liquid diet. Patient has been using
Drop in H&H noted. Discussed with GI-plan is to repeat EGD examination today.
Acute Blood Loss Anemia
s/p one unit of PRBC
-Continue to trend Hgb
Leukocytosis -suspect reactive to GI bleed. Normalized without any antimicrobial treatments.
Hyponatremia-suspect possibly volume related. Elevated BUN on adx noted. Improving with volume supplementation. If recurrent check urine lites.
Hyperkalemia
- Normalized
- Monitor potassium level
ASCVD with Non-Obstructive CAD
-Hold aspirin in setting of bleeding-resume when ok from GI
Moderate/Severe Aortic Stenosis
-Monitor Is&Os and Daily Weights
Essential Hypertension
-Resumed Lisinopril
-Monitor BP
Hyperlipidemia
-Hold simvastatin for now
Anxiety / Depression / Insomnia
-Continue Lexapro, bupropion and Zyprexa
-Continue Ambien prn
DVT proph: SCDs
Code Status: Full Code
Discussed with GI
Anticipated Discharge: 24 - 48 hours
Subjective/Interval History
-
Date of Service: November 12, 2023
Patient without nausea vomiting or abdominal pain. No further rectal bleeding.
Objective Data
-
Labs:
Laboratory Results
11/12/23 11/12/23
09:15 13:00
WBC 10.5 Pending
Hgb 7.5 L Pending
Hct 22.8 L Pending
Plt Count 185 Pending
Sodium 134 L
Potassium 3.9
Chloride 106
Carbon Dioxide 20 L
BUN 21 H
Creatinine 0.8
Glucose 90
Calcium 8.7
Vital Signs:
Vital Signs
Temp Pulse Resp BP Pulse Ox
98.4 F 93 14 148/80 98
11/12/23 07:57 11/12/23 08:55 11/12/23 07:57 11/12/23 08:55 11/12/23 07:57
I&O
11/11/23 11/12/23 11/13/23
06:59 06:59 06:59
Intake Total 980 / 980 2280 / 2280
Balance 980 / 980 2280 / 2280
Review of Systems
-
Constitutional: Denies Fever
Respiratory: Denies Trouble Breathing
Cardiac: Denies Chest Pain
Neuro: Denies Dizzy
Physical Exam
-
General: No Apparent Distress
Respiratory: Clear to Auscultation
Cardiac: Regular Rhythm and S1/S2
GI: Soft and Nontender
Neuro: AO x 3
Psych: Calm
Data Reviewed
-
Labs: Labs Reviewed by me
[2023-11-12 12:09] VITALS: BP 152/71
[2023-11-12 12:40] VITALS: BP 135/71
[2023-11-12 13:32] LABS: Hematocrit 22.6 % (37.0-47.0); Hemoglobin 7.9 g/dL (12.0-16.0); Mean Corpuscular Hgb 31.2 pg (27.0-31.0); Mean Corpuscular Volume 89.3 fL (81.0-99.0); Platelet Count 204 10^3/uL (130-400); Red Blood Cell Count 2.53 10^6/uL (4.20-5.40); Red Cell Dist. Width 15.9 % (11.5-14.5)
--- NOTE | 2023-11-12 13:43 | W.PN.UPDATE ---
Update Note
Progress Note Update
I reviewed repeat hemoglobin which is improved, again discussed with patient, no bowel movements today at all. At this point we will restart diet, is okay to DC from GI standpoint on PPI twice daily with follow-up as discussed previously.
--- NOTE | 2023-11-12 14:43 | PTCARENOTE ---
Patient left via wheelchair with staff escort and niece. Patient has discharge instructions and denies questions at this time.
[2023-11-12 15:20] VITALS: BP 148/66
[2023-11-12 15:56] VITALS: BP 117/50
--- NOTE | 2023-11-12 16:34 | CM ---
patient with gi bleed . sp 1 unit prbc,hgb 7.9,had a repeat hgb,patient to return to [facility] when stable for dc.
Plan:dc back to [facility].
--- NOTE | 2023-11-12 16:44 | W.DS.TRANS ---
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
-
Discharge Instructions:
Discharge Diagnosis/Procedures GI bleed sec to DU;Acute blood loss anemia s/p
blood transfusion
Diet Regular
Activity As tolerated
Driving Restrictions No driving for 1 week
Bathing Restrictions None
Blood Work CBC in one week -arrange through your PCP
Instructions:
Stand-Alone Forms:
Changes to Home Medications: Yes
Discharge Medications:
DC Medications w/original date entered in [employer]
bupropion HCl 300 mg 24 hr tablet, extended release 300 mg PO DAILY Depression 06/01/22
escitalopram oxalate 20 mg tablet 20 mg PO DAILY Depression 06/01/22
zolpidem 5 mg tablet (Ambien) 5 mg PO HS PRN sleep 06/01/22
olanzapine 2.5 mg tablet (Zyprexa) 2.5 mg PO HS Mental Health/Anxiety 07/25/23
simvastatin 10 mg tablet 10 mg PO HS High Cholesterol 07/25/23
acetaminophen 500 mg tablet (Pain Relief Extra Strength (acetaminophen)) 1,000 mg PO TID PRN mild pain 11/10/23
aspirin 81 mg tablet,delayed release 81 mg PO HS Blood Clot Prevention/Tx 11/10/23
biotin 1 tab PO HS 11/10/23
lisinopril 20 mg tablet 20 mg PO DAILY Blood Pressure 11/10/23
melatonin 2 tab PO HSPRN PRN sleep 11/10/23
pantoprazole 40 mg tablet,delayed release (Protonix) 40 mg PO BID #60 tabs 11/12/23
Home Medication Changes
New medication-Protonix twice daily
Pending Results: No
--- NOTE | 2023-11-12 18:31 | PTCARENOTE ---
Reviewed discharge instructions with patient and . Both verbalize understanding and deny questions. Peripheral IV removed. Tele box removed. Patient left via wheelchair accompanied by staff member.
== END 2023-11-12 18:04 | disposition home or self-care (01) | DRG 378 ==
LOC: 4 EAST ACU 12:44
PROVIDERS: Internal Medicine Gastroenterology; Nurse Practitioner Adult Health; Physician Assistant; Physician Assistant Medical; ADMITTING PHYSICIAN Internal Medicine; CONSULT PHYSICIAN Internal Medicine Gastroenterology; EMERGENCY PHYSICIAN Student in an Organized Health Care Education/Training Program; FAMILY PHYSICIAN Internal Medicine
PROC: 0DJ08ZZ Inspection of Upper Intestinal Tract, Via Natural or Artificial Opening Endoscopic (ICD-10-PCS; 2023-11-10)
PROC: 30233N1 Transfusion of Nonautologous Red Blood Cells into Peripheral Vein, Percutaneous Approach (ICD-10-PCS; 2023-11-11)
DX: K92.2 Gastrointestinal hemorrhage, unspecified (principal); D62 Acute posthemorrhagic anemia; E87.1 Hypo-osmolality and hyponatremia; D68.32 Hemorrhagic disorder due to extrinsic circulating anticoagulants; Z87.891 Personal history of nicotine dependence; E87.5 Hyperkalemia; I25.10 Atherosclerotic heart disease of native coronary artery without angina pectoris; I35.0 Nonrheumatic aortic (valve) stenosis; N18.9 Chronic kidney disease, unspecified; I12.9 Hypertensive chronic kidney disease with stage 1 through stage 4 chronic kidney disease, or unspecified chronic kidney disease; F32.A Depression, unspecified; F41.9 Anxiety disorder, unspecified; G47.00 Insomnia, unspecified; E78.00 Pure hypercholesterolemia, unspecified; K44.9 Diaphragmatic hernia without obstruction or gangrene
CPT/HCPCS: 80048; 80053; 85014; 85018; 85025; 85027; 85610; 85730; 86850; 86900; 86901; 86920; 96361; 96374; 99284; P9016

== ENCOUNTER 2023-11-14 13:26 | Inpatient (IN) | payer MEDICARE, OTHER, SELFPAY ==
[2023-11-14] VITALS (12 sets, daily range): BP systolic 102–148; BP diastolic 54–107; BMI 26.3
--- NOTE | 2023-11-14 11:31 | ED.GENMED ---
History of Present Illness
General
Chief Complaint: Malaise
Source: patient, records and ambulance crew
Exam Limitations: none
Time Seen by Provider: 11/14/23 11:20
Nursing documentation reviewed up to this point in time: agreed with
History of Present Illness
History of Present Illness:
78-year-old female with a past medical history hypertension hyperlipidemia, GERD with known duodenal ulcer who presents to the emergency room for evaluation of fatigue, shortness of breath, dizziness.Patient was admitted to this hospital 11/10/2023
until 11/12/2023 for acute GI bleeding; she was seen by GI had an endoscopy found to have nonbleeding duodenal ulcer thought to be likely source of her bleeding; she had acute blood loss anemia and was treated with blood transfusion; her
posttransfusion hemoglobin stabilized she had no additional bleeding in the hospital and was discharged on Wednesday evening and went home. Patient says that she felt generally well Wednesday evening when she returned home and on Wednesday as well. This
morning when she woke up she noticed that she was feeling very weak again and was having some increased shortness of breath. She says she has been having some positional lightheadedness today. She says that she discussed with her family and they
urged her to return to the emergency room for reassessment. She has not had a bowel movement since discharge from the hospital. She has not had any nausea or vomiting. She denies any chest pain. She denies any coughing, fevers, chills or URI
type symptoms. She denies any other complaints. She does note that she has had left upper extremity swelling which is an acute on chronic issue since her recent hospitalization--she had a humerus fracture on the left and has had chronic swelling
from that but says that the swelling got worse after IV placement in the left arm during recent hospitalization. No swelling in the legs. Patient is not on any blood thinners.
Past History
Past History
ED Past Medical History: Asthma, CAD, Cancer (Squamous cell), GERD, HTN, Hypercholesterolemia, Valvular disease, Psychiatric (Depression) and Other (Peptic ulcer disease, aortic stenosis, chronic kidney disease, peripheral vascular disease)
ED Past Surgical History: Cholecystectomy, Orthopedic (Right and left shoulder replacement, Left humorous ), Tonsilectomy and Other (Cataracts)
Social History
Tobacco: Former smoker
Alcohol: Occasional
Drug: None
Personal:
Living: with family
Employment: Employed
Review of Systems
Review of Systems
All Other Systems: ROS reviewed and negative except as documented in HPI and ROS
Constitutional: Reports fatigue; Denies fever or chills
EENT: Denies sore throat or runny nose
Respiratory: Reports trouble breathing; Denies cough
Cardiac: Denies chest pain, diaphoresis, palpitations or syncope
ABD/GI: Reports constipated; Denies abdominal pain, nausea, vomiting or diarrhea
: Denies dysuria, frequency or flank pain
Musculoskeletal: Reports edema; Denies neck pain or back pain
Neurological: Reports dizzy; Denies headache, weakness or numbness
Phy Exam
Physical Exam
Physical Exam:
General: Awake, alert, oriented x3; slightly anxious but no acute distress
Head: Normocephalic, atraumatic
Eyes: Conjunctiva normal
Throat: Airway intact, handling secretions
Neck: Trachea midline, supple without meningismus
Lungs: Clear to auscultation bilaterally, no wheezing, rales, rhonchi
Heart: Regular rate and rhythm, no murmurs, gallops, or rubs
Abd: Soft, non distended, nontender
Rectal: External hemorrhoids; black stool in the rectal vault Hemoccult positive
Neuro: Cranial nerves grossly intact, speech fluid
Skin: Somewhat pale, no rash
Extremities: Patient does have edema in the left upper extremity but no erythema or warmth; no edema in the rest of extremities; she has good pulses in all extremities
Scores
Heart Failure Risk
Heart Failure Risk Score: Not Applicable
Heart Score for Chest Pain Patients
STEMI patient?: Not applicable
Withdrawal Assessment of Alcohol
Withdrawal Assessment Completed?: Not applicable
Course
Orders/Labs/Results
Orders:
Orders
11/14/23 11:24
EKG [Electrocardiogram (*1)] Urgent
Reason for Study: Vertigo / Dizzy
EKG- Treatment ONCE
11/14/23 11:37
US Periph Venous UPPER Ext LT Urgent
Comment:
Reason For Exam: LUE swelling
11/14/23 11:44
CR Chest Portable - 1 View Urgent
Comment:
Reason For Exam: sob
Reason Study Needs to be Portable: Unable to Transport
11/14/23 11:55
Type+Screen Urgent
Complete Blood Count/With Diff Urgent
Comprehensive Metabolic Panel Urgent
PTT Urgent
Prothrombin Time Urgent
Abnormal Lab Results
11/14/23
11:55
RBC 2.50 L 10^6/uL
(4.20-5.40)
Hgb 7.7 L g/dL
(12.0-16.0)
Hct 22.3 L %
(37.0-47.0)
RDW 15.9 H %
(11.5-14.5)
MPV 11.3 H fL
(7.4-10.4)
Abs Immat Gran (auto) 0.1 H 10^3/uL
(0-0.05)
Absolute Neuts (auto) 8.0 H 10^3/uL
(1.4-6.5)
Absolute Lymphs (auto) 0.9 L 10^3/uL
(1.2-3.4)
Absolute Monos (auto) 1.0 H 10^3/uL
(0.1-0.6)
Immature Gran % 0.8 H %
(0-0.5)
Neutrophils % 78.9 H %
(42.2-75.2)
Lymphocytes % 8.7 L %
(20.5-51.1)
Monocytes % 9.6 H %
(1.7-9.3)
Sodium 132 L mmol/L
(135-145)
Carbon Dioxide 21 L mmol/L
(22-30)
Glucose 138 H mg/dl
(70-99)
ALT 58 H U/L
(0-35)
Total Protein 5.1 L g/dl
(6.3-8.2)
Albumin 3.1 L g/dl
(3.5-5.0)
11/14/23 11:55
11/14/23 11:55
Vital Signs
Initial and Last Documented VS:
Initial Vital Signs
Temp Pulse Resp BP Pulse Ox
36.9 C 79 16 102/71 97
11/14/23 11:19 11/14/23 11:19 11/14/23 11:19 11/14/23 11:19 11/14/23 11:19
Last Documented Vital Signs
Temp Pulse Resp BP Pulse Ox
36.9 C 76 19 102/56 100
11/14/23 11:19 11/14/23 12:00 11/14/23 12:00 11/14/23 12:00 11/14/23 12:00
MDM/Problems Addressed
Differential Diagnosis Includes:
Anemia, electrolyte derangement, deconditioning, pneumonia, PE is considered less likely based on full clinical picture
MDM/Problems Addressed:
78-year-old female presents for evaluation of fatigue, shortness of breath, positional dizziness that started once again today similar to symptoms she had with anemia prior to hospitalization for GI bleeding last week. She has not had a bowel
movement since leaving the hospital. Her vital signs are normal here. Physical exam as above�she notably has black stools which are heme positive could be old blood or new upper GI bleeding. Will plan to place an IV send labs including CBC and
CMP, coags, type and screen. Her only other complaint is asymmetric swelling of the left upper extremity which is an acute on chronic issue as described above. Will check an ultrasound to evaluate for signs of DVT. Will check an EKG and a chest
x-ray as well given her dyspnea. Will consent for blood in case of need. Monitor closely reassess after the above.
Labs reviewed: Her CBC shows hemoglobin of 7.7 essentially stable from discharge hemoglobin. Her BUN is not significantly elevated on CMP. Her chest x-ray shows no acute disease, EKG shows no clinically significant abnormalities. Given her
continued heme positive stool will admit for observation and serial hemoglobins to rule out recurrent GI bleeding again this could be old blood on Hemoccult today. Will treat with IV PPI for now. Case discussed with hospitalist for admission.
Chronic conditions affecting care:
PUD
*Radiology
Radiology exam reviewed: radiology read reviewed
*Pulse Oximetry
Patient hypoxic: no
*EKG
Interpreted by ED Provider?: Yes
Heart Rate: 77
Rate: normal
Rhythm: sinus
Mobile: normal axis
Interval: short FL
QRS Pattern: normal QRS
Ischemia: no ischemia
*Critical Care Note
Total Time (30-74mins, 75-104mins- exclusive of procedures): Not Applicable
Data Reviewed
Review of Other/Old Records Reveals: Labs, Records, Testing (Endoscopy report), Progress Notes and Discharge Summary
Source: patient and records
Patient Management
Discussion with other providers: Hospitalist (Discussed with hospitalist)
Escalation/DeEscalation of care consider admission/obs:
Admission indicated
ED Attending Note
-
Portions of this chart may have been created with voice recognition software.� Occasional wrong word or��sound alike� substitutions may have occurred due to the inherent limitations of voice recognition software.
Discharge Plan
Departure
Patient Disposition: Admit
Date of Disposition: 11/14/23
Time of Disposition: 12:42
Admit to doctor: Carlton
Presentation/result/management discussed w/ accepting MD/DO: Hospitalist
Discharge Problem:
Symptomatic anemia, GI bleed
Prescriptions:
No Action
zolpidem [Ambien] 5 mg Tablet
5 mg PO HS PRN (Reason: sleep)
escitalopram oxalate 20 mg Tablet
20 mg PO DAILY
bupropion HCl 300 mg Tablet Extended Release 24 Hr
300 mg PO DAILY
simvastatin 10 mg Tablet
10 mg PO HS
olanzapine [Zyprexa] 2.5 mg Tablet
2.5 mg PO HS
lisinopril 20 mg Tablet
20 mg PO DAILY
aspirin 81 mg Tablet,Delayed Release (Dr/Ec)
81 mg PO HS
Hold Instructions: Resume on 11/19/23.
biotin
1 tab PO HS
melatonin
2 tab PO HSPRN PRN (Reason: sleep)
Patient Comments:
11/10/2023, sublingual dissolvable tablets per pt.
acetaminophen [Pain Relief ES (acetaminophen)] 500 mg tablet
1,000 mg PO TID PRN (Reason: mild pain)
pantoprazole [Protonix] 40 mg tablet,delayed release (DR/EC)
40 mg PO BID Qty: 60 0RF
Referrals:
Jonathan Chaney MD [Family Provider] -
Interventions
Interventions:
*Risk Screen - Suicide Last Done: 11/14/23 11:19
*General Assessment Last Done: 11/14/23 11:19
*Neglect/Abuse Screening Last Done: 11/14/23 11:19
ED- Fall Risk Assessment Last Done: 11/14/23 11:19
*ED COVID-19 Vaccine History Last Done: 11/14/23 11:19
Discharge Date and Time
Print Language: KOREAN
[2023-11-14 12:10] LABS: % Basophils 0.6 % (0-2); % Eosinophils 1.4 % (0-6); % Immature Granulocytes 0.8 % (0-0.5); % Lymphocytes 8.7 % (20.5-51.1); % Monocytes 9.6 % (1.7-9.3); % Neutrophils 78.9 % (42.2-75.2); Absolute Basophils 0.1 10^3/uL (0-0.2); Absolute Eosinophils 0.1 10^3/uL (0-0.7); Absolute Immature Granulocytes 0.1 10^3/uL (0-0.05); Absolute Lymphocytes 0.9 10^3/uL (1.2-3.4); Hematocrit 22.3 % (37.0-47.0); Hemoglobin 7.7 g/dL (12.0-16.0); Mean Corp Hgb Conc. 34.5 g/dL (33.0-37.0); Mean Corpuscular Hgb 30.8 pg (27.0-31.0); Mean Corpuscular Volume 89.2 fL (81.0-99.0); Mean Platelet Volume 11.3 fL (7.4-10.4); Nucleated Red Blood Cells % 0 %; Platelet Count 230 10^3/uL (130-400); Red Cell Dist. Width 15.9 % (11.5-14.5); White Blood Cell Count 10.1 10^3/uL (4.8-10.8)
[2023-11-14 12:20] LABS: ALT (SGPT) 58 U/L (0-35); APTT 28.5 Sec (23.4-35.0); AST (SGOT) 34 U/L (14-36); Albumin 3.1 g/dl (3.5-5.0); Alkaline Phosphatase 83 U/L (38-126); Blood Urea Nitrogen 14 mg/dl (7-17); Calcium 8.9 mg/dl (8.4-10.2); Carbon Dioxide 21 mmol/L (22-30); Chloride 106 mmol/L (98-107); Glucose 138 mg/dl (70-99); Potassium 3.9 mmol/L (3.5-5.1); Sodium 132 mmol/L (135-145); Total Bilirubin 0.3 mg/dl (0.2-1.3); Total Protein 5.1 g/dl (6.3-8.2); eGFR > 60.00
--- NOTE | 2023-11-14 12:56 | HPS.HSE ---
Addendum entered and electronically signed by Israel Estrada MD 11/14/23 14:45:
Seen and examined by me independently in collaboration with the physician day care assistant Tess.
Past medical history/social history/medication/allergies reviewed.
Lab data and imaging data reviewed.
Patient returns back With lightheadedness and weakness.
She is tolerating diet without nausea and vomiting. No abdominal pains. No bowel movement. No rectal bleeding since discharge.
Her abdomen is soft. Her H&H remained still low. She is heme positive with black stool. No active bleeding. Her BUN which was elevated with GI bleed is all normal now. I doubt active bleeding. Continue with the PPI. Obtain the GI input as
well.
She remains severly anemic with hemoglobin still in sevens. Unclear if her weakness and lightheadedness may be just functional anemia. Will check H&H again if it remains in 7 we will transfuse and follow symptoms. In view of her moderate to
severe arctic stenosis will cover with Lasix. Clinically not in heart failure. Mild elevation in BNP noted. Her weight today seems to be closer to baseline.Hold on regular lasix.
Left arm swelling noted but no evidence of DVT. She had prior shoulder replacement and subsequent fracture requiring second surgery for the fracture. I suspect her arm swelling may be function of no therapies in the hospital and less mobility
of left arm. Advised left arm elevation.
Full code
Original Note:
Family Physician
-
Family Physician: Randa Chaney
Chief Complaint
-
Weakness, Dizziness and Shortness of Breath
History of Present Illness
Patient is an 78 y/o female with a past medical history of hypertension, hyperlipidemia, duodenal ulcer, aortic stenosis, and anemia who presents for weakness, lightheadedness, shortness of breath, and swelling of the LUE after being discharged from
the hospital two days ago on Wednesday for a bleeding duodenal ulcer. She felt well on Wednesday and Wednesday but woke up feeling weak this morning. After eating breakfast she became lightheaded and felt like she could not catch her breath so she called
an ambulance. She has also had significant swelling in her LUE since IV placement during her hospital stay earlier this week. She states that she has mild swelling in this extremity at baseline from a humerus fracture in July but admits that
this is much worse than usual. She denies fever and chest pain. She notes that she has not had a bowel movement since discharge and denies any rectal bleeding during that time.
Medical History
Past Medical History
Past Medical History: Reports Other
Additional Past Medical History:
Hypertension
Aortic Stenosis
ASCVD with Non-Obstructive CAD seen on prior cath - no prior MO, stent, etc.
Anxiety / Depression
DJD
Dyslipidemia
Past Surgical History: Reports Other
Additional Past Surgical History:
Bilateral TSA
Left TKA
Cholecystectomy
T&A
Ovarian Cystectomy
Cataracts
Social History
Tobacco: Former Smoker (Quit smoking 30+ years ago. Approx 30 pack years total use.)
Alcohol: Daily (1 glass wine daily.)
Drug: None
Family History
Family History: Not pertinent
Allergies / Home Medications
Allergies reflects when Allergies were last updated in [facility].
Home Medications with original date entered in [facility]
Allergy/Medication List:
Allergies
Allergy/AdvReac Type Severity Reaction Status Date / Time
pollen extracts Allergy nasal Verified 11/14/23 11:18
congestion
Home Medications
bupropion HCl 300 mg 24 hr tablet, extended release 300 mg PO DAILY Depression 06/01/22
escitalopram oxalate 20 mg tablet 20 mg PO DAILY Depression 06/01/22
zolpidem 5 mg tablet (Ambien) 5 mg PO HS PRN sleep 06/01/22
olanzapine 2.5 mg tablet (Zyprexa) 2.5 mg PO HS Mental Health/Anxiety 07/25/23
simvastatin 10 mg tablet 10 mg PO HS High Cholesterol 07/25/23
acetaminophen 500 mg tablet (Pain Relief Extra Strength (acetaminophen)) 1,000 mg PO TID PRN mild pain 11/10/23
biotin 1 tab PO HS 11/10/23
lisinopril 20 mg tablet 20 mg PO DAILY Blood Pressure 11/10/23
melatonin 2 tab PO HSPRN PRN sleep 11/10/23
pantoprazole 40 mg tablet,delayed release (Protonix) 40 mg PO BID #60 tabs 11/12/23
Review of Systems
-
A 12 point ROS was completed and negative except as noted: Yes
Constitutional: Denies Fever or Chills
Respiratory: Reports Trouble Breathing; Denies Cough
Cardiac: Denies Chest Pain
Abdomen/GI: Reports Other (Patient reports no BMS since discharge); Denies Abdominal Pain
Musculoskeletal: Reports Edema (Increased edema LUE)
Physical Exam
Vital Signs
Vital Signs
Temp Pulse Resp BP Pulse Ox
98.4 F 74 16 118/71 99
11/14/23 11:19 11/14/23 12:30 11/14/23 12:30 11/14/23 12:30 11/14/23 12:30
Physical Exam
General: Comfortable and Conversant
HEENT: Anicteric and Moist mucous membranes
Respiratory: Clear and Non Labored Respirations
Cardiac: S1/S2, Regular Rhythm and Murmur (3/6 systolic murmur heard best at right upper sternal border)
GI: Soft and Non Tender
Rectal: Black (Heme-Positive per ED provider)
Genito-urinary: Deferred by me
Musculoskeletal: No Clubbing, No Cyanosis and Edema, Left Upper Extremity (+3 pitting edema)
Skin: Warm and Dry
Neuro: Awake, Alert, Oriented and Nonfocal/grossly intact
Laboratory Results
-
11/14/23 11:55
11/14/23 11:55
Laboratory Results
PT 14.0 Sec (11.4-14.6) 11/14/23 11:55
INR 1.10 11/14/23 11:55
APTT 28.5 Sec (23.4-35.0) 11/14/23 11:55
Total Bilirubin 0.3 mg/dl (0.2-1.3) 11/14/23 11:55
AST 34 U/L (14-36) 11/14/23 11:55
ALT 58 U/L (0-35) H 11/14/23 11:55
Alkaline Phosphatase 83 U/L (38-126) 11/14/23 11:55
Data Reviewed
-
Lab Data: Labs Reviewed by me
Old Records: Reviewed
Impression/Plan
-
Symptomatic Subacute Blood Loss Anemia
-Hgb stable compare to discharge two days ago
-Continue to trend Hgb
-Consider blood transfusion if repeat Hgb continue to trend downward
Recent GI Bleed secondary to Duodenal Ulcer
-Patient continues with heme-positive stool, suspect old blood
-Continue Protonix IV BID
-Allow clears
-Consider GI Consult if Hgb trends downward
ASCVD with Non-Obstructive CAD
-Hold aspirin in setting of bleeding
Moderate/Severe Aortic Stenosis
-Monitor Is&Os and Daily Weights
Essential Hypertension
-Continue lisinopril with hold parameters
Hyperlipidemia
-Continue statin
Anxiety / Depression / Insomnia
-Continue Lexapro, bupropion and Zyprexa
-Continue Ambien prn
DVT proph: SCDs
Code Status: Full Code
[2023-11-14] MEDS: PROTONIX IV 80 MG IV (13:05)
[2023-11-14 13:45] LABS: NT-proBNP 2460 pg/ml
[2023-11-14] MEDS: LIPITOR 10 MG PO (17:23)
[2023-11-14 20:53] LABS: Hematocrit 22.8 % (37.0-47.0); Hemoglobin 7.7 g/dL (12.0-16.0)
[2023-11-14] MEDS: AMBIEN 5 MG PO (22:20)
[2023-11-14] MEDS: PROTONIX IV 40 MG IV (22:20)
[2023-11-14] MEDS: ZYPREXA 2.5 MG PO (22:20)
[2023-11-14] MEDS: TYLENOL 650 MG PO (22:20)
[2023-11-14] MEDS: PROTONIX 40 MG PO (23:08)
[2023-11-15] VITALS (7 sets, daily range): BP systolic 119–157; BP diastolic 58–73; PULSE 87; BMI 26.1
[2023-11-15] MEDS: ROXICODONE 5 MG PO ×2 (02:38→21:45)
[2023-11-15 08:07] LABS: Hemoglobin 7.8 g/dL (12.0-16.0); Mean Corp Hgb Conc. 33.9 g/dL (33.0-37.0); Mean Corpuscular Hgb 30.7 pg (27.0-31.0); Mean Corpuscular Volume 90.6 fL (81.0-99.0); Mean Platelet Volume 11.2 fL (7.4-10.4); Platelet Count 221 10^3/uL (130-400); Red Blood Cell Count 2.54 10^6/uL (4.20-5.40); Red Cell Dist. Width 15.9 % (11.5-14.5); White Blood Cell Count 9.7 10^3/uL (4.8-10.8)
[2023-11-15 08:39] LABS: Blood Urea Nitrogen 12 mg/dl (7-17); Carbon Dioxide 26 mmol/L (22-30); Chloride 103 mmol/L (98-107); Estimated Creatinine Clearance 52 ml/min; Glucose 95 mg/dl (70-99); Potassium 3.9 mmol/L (3.5-5.1); Sodium 133 mmol/L (135-145); eGFR > 60.00
[2023-11-15] MEDS: ZESTRIL 20 MG PO (08:51)
[2023-11-15] MEDS: PROTONIX 40 MG PO ×2 (08:51→19:44)
[2023-11-15] MEDS: LEXAPRO 20 MG PO (08:52)
[2023-11-15] MEDS: WELLBUTRIN XL (24 hour extended release) 300 MG PO (08:52)
--- NOTE | 2023-11-15 12:55 | W.PN.HOSP.TC ---
Today's Communication/Plan
-
Advance diet
Follow HH.Check Iron studies.
CW tele,consult cardiology.
Left arm xray.
Assessment / Plan
Assessment / Plan
Lightheadedness with the weakness and shortness of breath-seems to have improved. Unclear if her symptoms are symptomatic due to Anemia. With improved symptoms and mod to severe avoid transfusion and fluid overload . HH 7.8 which is better.
Check iron studies. Cards eval regarding atrial arrhythmia.
-Hgb stable compare to discharge two days ago
-Continue to trend Hgb
Atrial arrhythmia - some of the tachy seems to be atrial tachy ; couple of the strips raises ? atrial fib . Consult cards.
Recent GI Bleed secondary to Duodenal Ulcer
-Patient continues with heme-positive stool, suspect old blood
-Continue Protonix IV BID
-Advance diet
-Consider GI Consult if Hgb trends downward
Left arm pain and swelling - recent fx needing hardware on top of her prosthetic left shoulder replacment. No DVT on US in L arm. Check xray
ASCVD with Non-Obstructive CAD
-Hold aspirin in setting of bleeding
Moderate/Severe Aortic Stenosis
- Most recent echo report reviewed.Normal EF
-Monitor Is&Os and Daily Weights
Essential Hypertension
-Continue lisinopril with hold parameters
Hyperlipidemia
-Continue statin
Anxiety / Depression / Insomnia
-Continue Lexapro, bupropion and Zyprexa
-Continue Ambien prn
DVT proph: SCDs
Code Status: Full Code
total time spent on today's encounter was 52 minutes which included time spent in counseling the patient/family regarding diagnosis and treatment plan as listed above, goals of care, and symptom management. Case was discussed with nursing staff,
specialists, . All labs and imaging personally reviewed by me. Remainder the time spent in detailed review of previous records, lab data, imaging, and other medical provider documentation.
Anticipated Discharge: Within 24 hours
Subjective/Interval History
-
Date of Service: November 15, 2023
Today she does not feel dizzy. She feels okay. Not complaining of weakness. But has not done much yet out of bed.
No nausea vomiting. Tolerating clear liquid diet.
No rectal bleeding.
Left arm still seems swollen and painful on movements especially with the shoulder movements.
Left forearm swelling is better with elevation.
Denies chest pain or palpitations.
Objective Data
-
Labs:
Laboratory Results
11/15/23
07:29
WBC 9.7
Hgb 7.8 L
Hct 23.0 L
Plt Count 221
Sodium 133 L
Potassium 3.9
Chloride 103
Carbon Dioxide 26
BUN 12
Creatinine 0.7
Glucose 95
Calcium 9.0
Vital Signs:
Vital Signs
Temp Pulse Resp BP Pulse Ox
97.9 F 82 18 124/60 97
11/15/23 11:00 11/15/23 11:00 11/15/23 11:00 11/15/23 11:00 11/15/23 11:00
I&O
11/14/23 11/15/23 11/16/23
06:59 06:59 06:59
Intake Total 240 / 240
Balance 240 / 240
Review of Systems
-
Constitutional: Denies Fever
EENT: Denies Sore Throat
Respiratory: Denies Cough or Trouble Breathing
Neuro: Denies Dizzy or Headache
Physical Exam
-
General: No Apparent Distress
HEENT: Moist Mucous Membranes
Respiratory: Clear to Auscultation
Cardiac: Regular Rhythm, S1/S2 and Murmur ()
GI: Soft
Musculoskeletal: Edema, Left Upper Extrem (Forearm swelling improved;arm on pillow )
Neuro: AO x 3 and No Motor Deficits
Psych: Calm
Data Reviewed
-
Labs: Labs Reviewed by me
[2023-11-15 13:40] LABS: Reticulocyte Count 4.2 % (0.4-2.8)
--- NOTE | 2023-11-15 13:54 | CON.CAR ---
Addendum entered and electronically signed by Francesco Shahid MD 11/15/23 15:18:
I saw and examined the patient.
The [employer]'s note was reviewed and I agree with the note.
Comment: 78 y/o female with moderate to severe , hypertension, dyslipidemia, GERD and recent admission with acute anemia related to duodenal ulcer. She has incidentally been noticed to have multiple runs of atrial arrhythmia with further
inspection this appears to be an atrial tachycardia vs SVT. I do not think there is enough to definitively call this A-fib. No new meds or recommendations at this time.
We will sign off please call back with questions or concerns.
Original Note:
Consultation
Consultation Request
Date/Time Consultation Requested: 11/15/23 1301
Date/Time Consultation Performed: 11/15/23 1400
Requesting Provider: Dr. Estrada
Performing Provider: Paris COOK for Dr. Shahid
Reason for Consultation: arrhythmia
Medical History
-
Chief Complaint: 'wooziness'
History of Present Illness:
78 y/o female with moderate to severe , hypertension, dyslipidemia, GERD and recent admission with acute anemia related to duodenal ulcer. She required a unit of PRBC's. She was discharged, but returned since she felt unwell with wooziness. Also
with recent fall with humerus fracture with surgery 09/2022. 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 Brasher at [facility].
Past Medical History
Past Medical History: GERD, HTN, Hypercholesterolemia, Valvular Disease and Other (GIB)
Social History
Personal:
Family History
Family History: Reviewed & Not Pertinent
Allergies / Home Medications
Allergy/AdvReac Type Severity Reaction Status Date / Time
pollen extracts Allergy nasal Verified 11/14/23 11:18
congestion
�Medication �Instructions �Recorded �Confirmed �Type
bupropion HCl 300 mg 24 hr tablet, 300 mg PO DAILY Depression 06/01/22 11/14/23 History
extended release
escitalopram oxalate 20 mg tablet 20 mg PO DAILY Depression 06/01/22 11/14/23 History
zolpidem 5 mg tablet (Ambien) 5 mg PO HS PRN sleep 06/01/22 11/14/23 History
olanzapine 2.5 mg tablet (Zyprexa) 2.5 mg PO HS Mental Health/Anxiety 07/25/23 11/14/23 History
simvastatin 10 mg tablet 10 mg PO HS High Cholesterol 07/25/23 11/14/23 History
acetaminophen 500 mg tablet (Pain 1,000 mg PO TID PRN mild pain 11/10/23 11/14/23 History
Relief Extra Strength
(acetaminophen))
biotin 1 tab PO HS 11/10/23 11/14/23 History
lisinopril 20 mg tablet 20 mg PO DAILY Blood Pressure 11/10/23 11/14/23 History
melatonin 2 tab PO HSPRN PRN sleep 11/10/23 11/14/23 History
pantoprazole 40 mg tablet,delayed 40 mg PO BID #60 tabs 11/12/23 11/14/23 Rx
release (Protonix)
Review of Systems
-
History Source: Patient
All other systems: Negative unless noted
Constitutional: Other ('wooziness')
Physical Exam
Vital Signs
Temp Pulse Resp BP Pulse Ox
97.9 F 82 18 124/60 97
11/15/23 11:00 11/15/23 11:00 11/15/23 11:00 11/15/23 11:00 11/15/23 11:00
Lab Results
11/15/23 07:29
11/15/23 07:29
Dkw-[id number] Pept 2460 pg/ml 11/14/23 11:55
Physical Exam
General: Well Developed, Well Nourished and No Apparent Distress
HEENT: Normocephalic and Anicteric
Respiratory: Clear and Non Labored Respirations
Cardiac: Regular Rhythm and Murmur (III/ systolic murmur)
Musculoskeletal: No Edema
Skin: Warm and Dry
Neuro: AO x 3
Psych: Calm
Impression / Plan
-
Anemia, recent duodenal ulcer:
-significant, but stable
-follow hgb, management per primary
Arrhythmia:
-short runs SVT/AT, no obvious AFIB to my review
-denies palpitations
-check TSH, mag
-OP follow-up with jig and fixture builder apprentice (Dr. Brasher) with recommendation for OP monitor
Moderate to severe :
-continue OP monitoring with Dr. Brasher (per patient, they are currently just monitoring)
-denies any syncope
LUE swelling:
-fall and surgery 07/2023
-no DVT
-XR pending
-management per primary team
Data Reviewed
-
EKG: Tracing Personally Visualized and interpreted
Radiology: Report Reviewed by me (CXR 11/14/23: New small right pleural effusion with adjacent mild subpleural airspace opacity (probably subpleural subsegmental atelectasis and less likely pneumonia). 2. Moderate tortuosity of the thoracic aorta.)
Medical Tests (Nuc Med, Echo etc): Report Reviewed by me (Echo 07/27/23: Ejection fraction is 60-65%.Moderate-severe aortic stenosis.Mean gradient 45mmHg -the estimated aortic valve area is 0.9cm2. )
Labs: Labs Reviewed by me
[2023-11-15 13:57] LABS: Iron 36 ug/dl (37-170)
[2023-11-15 14:06] LABS: Percent Saturation 15 % (20-50); Total Iron Binding Capacity 230 ug/dl (265-497)
[2023-11-15 14:32] LABS: Ferritin 37.1 ng/ml (11.1-264.0)
[2023-11-15 15:23] LABS: Magnesium 1.7 mg/dl (1.6-2.3)
[2023-11-15 15:32] LABS: TSH Reflex To Free T4 2.12 uIU/ml (0.47-4.68)
[2023-11-15] MEDS: LIPITOR 10 MG PO (18:06)
[2023-11-15] MEDS: TYLENOL 650 MG PO (19:48)
[2023-11-15] MEDS: AMBIEN 5 MG PO (21:45)
[2023-11-15] MEDS: ZYPREXA 2.5 MG PO (21:46)
[2023-11-16] VITALS (7 sets, daily range): BP systolic 105–168; BP diastolic 48–90; PULSE 86–118; BMI 26.2
[2023-11-16] MEDS: TYLENOL 650 MG PO ×2 (00:34→20:09)
[2023-11-16] MEDS: WELLBUTRIN XL (24 hour extended release) 300 MG PO (08:35)
[2023-11-16] MEDS: PROTONIX 40 MG PO ×2 (08:35→20:01)
[2023-11-16] MEDS: LEXAPRO 20 MG PO (08:35)
[2023-11-16] MEDS: ZESTRIL 20 MG PO (08:35)
--- NOTE | 2023-11-16 13:18 | CM ---
Reviewed chart, met with patient to obtain information for assessment. Patient stated that she lives at independent living with her spouse at [facility]. Apartment is all one level.
Patient described herself as usually independent with her ADLs, dressing, bathing, toileting and all personal care. 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
Patient confirmed that she can still drive and can get to appointments and do all of her own shopping. There is van transportation for errands as well.
Patient has had VN in the past through . She has never been to a SNF and is hoping to not have to go to one post this stay. She is agreeable to VN if indicated.
Patient has a prescription plan and uses [facility] in [place] for all of her medications.
Her PCP is, Jonathan Chaney MD
Plan: Case management will continue to follow and assist with discharge planning. Tentative plan is home when stable with VN if indicated.
[2023-11-16 15:08] LABS: Hematocrit 23.1 % (37.0-47.0); Hemoglobin 7.7 g/dL (12.0-16.0); Mean Corp Hgb Conc. 33.3 g/dL (33.0-37.0); Mean Corpuscular Hgb 30.6 pg (27.0-31.0); Mean Corpuscular Volume 91.7 fL (81.0-99.0); Mean Platelet Volume 11.2 fL (7.4-10.4); Platelet Count 254 10^3/uL (130-400); Red Blood Cell Count 2.52 10^6/uL (4.20-5.40); Red Cell Dist. Width 15.9 % (11.5-14.5); White Blood Cell Count 13.7 10^3/uL (4.8-10.8)
--- NOTE | 2023-11-16 15:36 | W.PN.HOSP.TC ---
Today's Communication/Plan
-
Consult orthopedics
Assessment / Plan
Assessment / Plan
Lightheadedness with the weakness and shortness of breath-seems to have improved. Unclear if her symptoms are symptomatic due to Anemia. With improved symptoms and mod to severe avoid transfusion and fluid overload . HH 7.8 which is better.iron
studies suggest ACD. Cards eval regarding atrial arrhythmia noted - no afib
-Hgb stable compare to discharge two days ago
-Continue to trend Hgb
Atrial arrhythmia - some of the tachy seems to be atrial tachy ; couple of the strips raises ? atrial fib . constant but noted-no evidence of A-fib. Signed off.
Recent GI Bleed secondary to Duodenal Ulcer
-Patient continues with heme-positive stool, suspect old blood
-Continue Protonix IV BID
-Advance diet
-Consider GI Consult if Hgb trends downward
Left arm pain and swelling - recent fx needing hardware on top of her prosthetic left shoulder replacment. No DVT on US in L arm. x-ray shows hardware in place. Patient worried about decreasing mobility and pain in the left arm. Consult
orthopedics. Sees Dr. Alcantar.
ASCVD with Non-Obstructive CAD
-Hold aspirin in setting of bleeding
Moderate/Severe Aortic Stenosis
- Most recent echo report reviewed.Normal EF
-Monitor Is&Os and Daily Weights
Essential Hypertension
-Continue lisinopril with hold parameters
Hyperlipidemia
-Continue statin
Anxiety / Depression / Insomnia
-Continue Lexapro, bupropion and Zyprexa
-Continue Ambien prn
DVT proph: SCDs
Code Status: Full Code
Anticipated Discharge: Within 24 hours
Subjective/Interval History
-
Date of Service: November 16, 2023
She feels improved from lightheadedness and weakness. She did work with PT.
Her main complaint now is persistent lower left arm swelling , pain , discomfort and also decreased mobility in left shoulder and elbow compared to post surgery.
Objective Data
-
Labs:
Laboratory Results
11/16/23
14:48
WBC 13.7 H
Hgb 7.7 L
Hct 23.1 L
Plt Count 254
Vital Signs:
Vital Signs
Temp Pulse Resp BP Pulse Ox
98.7 F 101 16 119/67 98
11/16/23 15:24 11/16/23 15:24 11/16/23 15:24 11/16/23 15:24 11/16/23 15:24
I&O
11/15/23 11/16/23 11/17/23
06:59 06:59 06:59
Intake Total 240 / 240 1080 / 1080
Balance 240 / 240 1080 / 1080
Review of Systems
-
Constitutional: Denies Fever
EENT: Denies Sore Throat
Respiratory: Denies Trouble Breathing
Cardiac: Denies Chest Pain
Abdomen/GI: Denies Abdominal Pain, Nausea or Vomiting
Neuro: Denies Dizzy
Physical Exam
-
General: No Apparent Distress
HEENT: Moist Mucous Membranes
Respiratory: Clear to Auscultation
Cardiac: Regular Rhythm and S1/S2
GI: Soft, Nontender, Nondistended and Normal Bowel Sounds
Musculoskeletal: Edema, Left Upper Extrem (in the arm, forearm is better)
Neuro: AO x 3
Psych: Calm; Negative Confused
[2023-11-16] MEDS: LIPITOR 10 MG PO (16:39)
[2023-11-16] MEDS: ZYPREXA 2.5 MG PO (21:39)
[2023-11-16] MEDS: AMBIEN 5 MG PO (21:45)
[2023-11-17] MEDS: TYLENOL 650 MG PO (01:51)
[2023-11-17 03:39] VITALS: BP 124/44
[2023-11-17 06:00] VITALS: BMI 26.2
[2023-11-17 07:34] VITALS: BP 119/68
[2023-11-17] MEDS: PROTONIX 40 MG PO (09:57)
[2023-11-17] MEDS: WELLBUTRIN XL (24 hour extended release) 300 MG PO (09:57)
[2023-11-17] MEDS: LEXAPRO 20 MG PO (09:57)
[2023-11-17] MEDS: ZESTRIL 20 MG PO (09:57)
[2023-11-17 10:35] LABS: Hematocrit 24.4 % (37.0-47.0); Mean Corp Hgb Conc. 32.8 g/dL (33.0-37.0); Mean Corpuscular Hgb 30.2 pg (27.0-31.0); Mean Corpuscular Volume 92.1 fL (81.0-99.0); Mean Platelet Volume 11.4 fL (7.4-10.4); Platelet Count 304 10^3/uL (130-400); Red Blood Cell Count 2.65 10^6/uL (4.20-5.40); Red Cell Dist. Width 15.8 % (11.5-14.5)
--- NOTE | 2023-11-17 10:38 | CM ---
Ortho consulted .
Requested OT order form .
Wil williamson ordered.
Lives at Independent living [facility].
Pt has had out pt PT in past
PLAN Home with Out Pt PT VS VN
[2023-11-17 11:30] VITALS: BP 125/53
--- NOTE | 2023-11-17 12:16 | CON.ORTHO ---
Consultation
-
Date/Time Consultation Requested: 11/16/2023; time unknown
Date/Time Consultation Performed: 11/17/2023; 0730
Requesting Provider: unknown
Performing Provider: Louise Castillo PA-C for Dr. Qasim Byrne
Reason for Consultation: LUE swelling
Consultation - Orthopedics
History
Ms. Manuel is an 78 year old female with PMH of HTN, HLD, duodenal ulcer, aortic stenosis and anemia. She is status post ORIF left periprosthetic humerus fracture performed by Dr. Alcantar on 07/28/2023. She has been progressing as expected
post-operatively, but has had baseline swelling since her surgery. She was admitted to recently and an IV was placed in her left arm. She reports since that time she has experienced worsening swelling throughout her left upper extremity. She
denies any increased pain, only mild discomfort in her upper arm. She denies any new falls or injury.
Allergies / Home Medications
Allergy/AdvReac Type Severity Reaction Status Date / Time
pollen extracts Allergy nasal Verified 11/14/23 11:18
congestion
�Medication �Instructions �Recorded
bupropion HCl 300 mg 24 hr tablet, 300 mg PO DAILY Depression 06/01/22
extended release
escitalopram oxalate 20 mg tablet 20 mg PO DAILY Depression 06/01/22
zolpidem 5 mg tablet (Ambien) 5 mg PO HS PRN sleep 06/01/22
olanzapine 2.5 mg tablet (Zyprexa) 2.5 mg PO HS Mental Health/Anxiety 07/25/23
simvastatin 10 mg tablet 10 mg PO HS High Cholesterol 07/25/23
acetaminophen 500 mg tablet (Pain 1,000 mg PO TID PRN mild pain 11/10/23
Relief Extra Strength
(acetaminophen))
biotin 1 tab PO HS 11/10/23
lisinopril 20 mg tablet 20 mg PO DAILY Blood Pressure 11/10/23
melatonin 2 tab PO HSPRN PRN sleep 11/10/23
pantoprazole 40 mg tablet,delayed 40 mg PO BID Gastrointestinal Issue 11/15/23
release (Protonix)
Vital Signs / Lab Results
Temp Pulse Resp BP Pulse Ox
98.3 F 74 17 125/53 98
11/17/23 11:30 11/17/23 11:30 11/17/23 11:30 11/17/23 11:30 11/17/23 11:30
11/17/23 10:00
11/15/23 07:29
US LUE 11/14/2023 IMPRESSION:
No sonographic evidence for left upper extremity venous thrombosis.
XR Left humerus 11/15/2023 IMPRESSION:
ORIF hardware of the humerus redemonstrated. There is an apparent subacute partially healed periprosthetic fracture of the distal humerus diaphysis, new from prior. The existing ORIF hardware does appear to bridge this fracture site. Recommend
continued attention on follow-up exams as clinically indicated.
Reverse left shoulder arthroplasty hardware redemonstrated without overt complication. Partially visualized elbow joint articulations demonstrate mild degenerative changes, similar to prior. Soft tissues are grossly unremarkable.
Directed exam of the left upper extremity reveals well healed surgical incision over the anterior upper arm. Generalized edema throughout the left upper extremity. Very mild tenderness to palpation about the fracture site. Slight creptius with
palpation about the fracture site. No significant erythema or ecchymosis. Full ROM of elbow, wrist and hand. Neurovascularly intact distally.
Assessment / Plan
LUE edema s/p ORIF periprosthetic humerus fracture
--Oxana's x-rays were reviewed with her which reveal a mild shift of her fracture and slight gapping at the distal aspect of the plate. She denies and falls or new injuries to the arm. This could be related to her increased edema throughout her LUE.
Either way, we are able to manage this non-operatively. I recommended the use of a Feldman brace and order was placed through [facility]. She may continue with ROM of her elbow, wrist and hand. I recommend non-weight bearing to LUE. Pain control per
primary. She will follow up in 1-2 weeks for repeat x-rays. Please reach out with any additional orthopedic question or concern. Plan reviewed with Dr. Alcantar who is in agreement.
--- NOTE | 2023-11-17 14:19 | W.DS.TRANS ---
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
-
Discharge Instructions:
Discharge Diagnosis/Procedures GI blood loss anemia
Diet Low Fat,Low Cholesterol,2 Gram Sodium
Activity No restrictions
Driving Restrictions Not until seen by your Dr
Blood Work Needs complete blood picture, to be ordered by
primary care follow-up within a week
Instructions:
Stand-Alone Forms:
Changes to Home Medications: No
Discharge Medications:
DC Medications w/original date entered in [email or web address]
bupropion HCl 300 mg 24 hr tablet, extended release 300 mg PO DAILY Depression 06/01/22
escitalopram oxalate 20 mg tablet 20 mg PO DAILY Depression 06/01/22
zolpidem 5 mg tablet (Ambien) 5 mg PO HS PRN sleep 06/01/22
olanzapine 2.5 mg tablet (Zyprexa) 2.5 mg PO HS Mental Health/Anxiety 07/25/23
simvastatin 10 mg tablet 10 mg PO HS High Cholesterol 07/25/23
acetaminophen 500 mg tablet (Pain Relief Extra Strength (acetaminophen)) 1,000 mg PO TID PRN mild pain 11/10/23
biotin 1 tab PO HS 11/10/23
lisinopril 20 mg tablet 20 mg PO DAILY Blood Pressure 11/10/23
melatonin 2 tab PO HSPRN PRN sleep 11/10/23
pantoprazole 40 mg tablet,delayed release (Protonix) 40 mg PO BID Gastrointestinal Issue 11/15/23
Home Medication Changes
Pending Results: No
Additional Pending Results:
Physical exam:
General: Awake, alert and oriented x3, not in distress and holds appropriate conversation.
HEENT: No active discharge, ecchymosis or bruising, moist lips, tongue and mucous membrane.
Eyes: No discharge or red conjunctiva, no nystagmus, pupils are reactive and equal
Neck:Supple, no JVD no bruit no goiter.
Respiratory: Normal AP contour and diameter, normal chest wall movement, normal respiratory effort, no respiratory distress,
Lungs: Good air entry bilaterally, no wheezing or rhonchi, no rales or crackles
Heart: S1, S2 regular, normal rate, no added sound.
Gastrointestinal: Positive bowel sounds, soft, nontender, no guarding or rigidity or organomegaly
Musculoskeletal: Scar in the left upper extremity with swelling, chronic no redness, no chest wall abnormality or tenderness. All joints and extremities have good range of motion, no muscle tenderness or any joint swelling or tenderness.
Extremities: Left upper extremity pitting edema, good peripheral pulses, good range of motion
Skin: Warm and dry, no ulceration, normal color.
Neurological: Awake, alert and oriented x3, cranial nerve II-XII grossly intact, speech clear and comprehensive, good muscle tone, normal sensory and motor function
Psychiatric: Normal mood, normal thought and judgment, normal affect,
Condition on discharge: Awake, alert and oriented x3, answer question properly, able to make own decision and take care of activities of daily living, speech clear and comprehensive, continent of the bowel and bladder, ambulate without first assistant,
goes home where lives with the family independently.
--- NOTE | 2023-11-17 14:45 | CM ---
Spoke with pt at bedside .
Offered VN she requested [facility] /. [facility] liaison notified of referral . Order for dc entered by MD.
will drive her home.
Ortho saw patient ordered Feldman brace from [facility] . Called [facility] no new order for brace received.
TT Louise Castillo from Ortho.
Spoke with Aileen Collins main office Stephanie she confirmed order for Feldman brace was just received.
Informed Aileen pt will be dc to home today .Aileen confirmed brace will be delivered to her home tomorrow.
Above told to pt . She is in agreement.
IMM reviewed with her she wants dc today.
PLAN Home with [facility]
--- NOTE | 2023-11-17 14:52 | VNURNOTE ---
Home Health Liaison spoke with patient at 1445 to discuss [facility] nurse/therapy, visits, schedule and homebound status. Patient is agreeable and understands that visits at home will be 2-3 x per week to assess and teach medical management.
Patient is aware that [facility] will contact them for start of care in 1-2 days after discharge from .
[facility] referral completed in [facility].
--- NOTE | 2023-11-17 14:56 | W.PN.HOSP.TC ---
Today's Communication/Plan
-
All discussed with the patient few times
Discussed with the nurse
Assessment / Plan
Assessment / Plan
Physical exam:
General: Pale looking, awake, alert and oriented x3, not in distress and holds appropriate conversation.
HEENT: No active discharge, ecchymosis or bruising, moist lips, tongue and mucous membrane.
Eyes: No discharge or red conjunctiva, no nystagmus, pupils are reactive and equal
Neck:Supple, no JVD no bruit no goiter.
Respiratory: Normal AP contour and diameter, normal chest wall movement, normal respiratory effort, no respiratory distress,
Lungs: Good air entry bilaterally, no wheezing or rhonchi, no rales or crackles
Heart: S1, S2 regular, normal rate, no added sound.
Gastrointestinal: Positive bowel sounds, soft, nontender, no guarding or rigidity or organomegaly
Musculoskeletal: , no chest wall abnormality or tenderness. All joints and extremities have good range of motion, no muscle tenderness or any joint swelling or tenderness.
Extremities: Left upper extremity edema w anterior midline scar no ulceration or redness,, good peripheral pulses, good range of motion
Skin: Warm and dry, no ulceration, normal color.
Psychiatric: Normal mood, normal thought and judgment, normal affect,
Assessment and plan:
Resolved
Lightheadedness with the weakness and shortness of breath-seems to have improved. Unclear if her symptoms are symptomatic due to Anemia. With improved symptoms and mod to severe avoid transfusion and fluid overload . HH 7.8 which is better.iron
studies suggest ACD. Cards eval regarding atrial arrhythmia noted - no afib
Outpatient follow-up with cardio
-Hgb stable in 2 days better than yesterday, today's 8 yesterday was 7.7
-Continue to trend Hgb
Atrial arrhythmia - some of the tachy seems to be atrial tachy ; couple of the strips raises ? atrial fib . constant but noted-no evidence of A-fib. Signed off.
Recent GI Bleed secondary to Duodenal Ulcer
-Patient continues with heme-positive stool, suspect old blood
-Continue Protonix changed to p.o. twice daily
-Advance diet
-Continue to monitor
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 No DVT on US in L arm. x-ray shows hardware in place. Patient worried about decreasing mobility and pain in the left arm.
Seen by Ortho and they recommended Feldman brace from [facility] but they cannot begin until tomorrow, therefore patient was discharged but will keep until she get the brace
ASCVD with Non-Obstructive CAD
-Hold aspirin in setting of bleeding
Moderate/Severe Aortic Stenosis
- Most recent echo report reviewed.Normal EF
-Monitor Is&Os and Daily Weights
Essential Hypertension
-Continue lisinopril with hold parameters
Hyperlipidemia
-Continue statin
Anxiety / Depression / Insomnia
-Continue Lexapro, bupropion and Zyprexa
-Continue Ambien prn
DVT proph: SCDs
Code Status: Full Code
Anticipated Discharge: Within 24 hours
Subjective/Interval History
-
Date of Service: November 17, 2023
Seen and examined, awake and alert, denies any chest pain or shortness of breath or fever or chill, she feels her left upper extremity swelling is little worse without any redness or pain or ulceration.
Did not move her bowel so far and hemoglobin is even better today than yesterday,
Objective Data
-
Labs:
Laboratory Results
11/17/23
10:00
WBC 12.0 H
Hgb 8.0 L
Hct 24.4 L
Plt Count 304
Vital Signs:
Vital Signs
Temp Pulse Resp BP Pulse Ox
98.3 F 74 17 125/53 98
11/17/23 11:30 11/17/23 11:30 11/17/23 11:30 11/17/23 11:30 11/17/23 11:30
I&O
11/16/23 11/17/23 11/18/23
07:59 07:59 07:59
Intake Total 1080 / 1080 660 / 660
Balance 1080 / 1080 660 / 660
Review of Systems
-
All other systems: Reviewed and negative
[2023-11-17 15:26] VITALS: BP 135/66
--- NOTE | 2023-11-17 16:10 | PN.CDI ---
CDI
- -
CDI:
Physician Documentation Request
Admit Date: 11/14/23 13:26
Dear Doctor Terrell,
Clinical Indicators:
Patient admitted with lightheadedness/weakness.
Home medications include: Lexapro, bupropion and Zyprexa
Sodium levels:
11/14/23 11/15/23
11:55 07:29
Sodium 132 L 133 L
Based on the above, could you clarify in the progress notes, the appropriate diagnosis, if significant, that supports the above abnormalities and additional evaluation, monitoring and/or treatment rendered:
Hyponatremia
Abnormal lab values, clinically insignificant
Other, please specify
Use of terms such as suspected, likely, concern for, or probable (associated with a specific diagnosis that is being evaluated, monitored, or treated as if it exists) are acceptable and can be coded in the inpatient setting, when documented at the
time of discharge.
Thank you,
LUCAS Aragon RN
CDI Specialist
available via tiger text
Please use your independent medical judgment in providing your response.
--- NOTE | 2023-11-17 16:14 | PN.CDI ---
CDI
- -
CDI:
Physician Documentation Request
Admit Date: 11/14/23 13:26
Dear Doctor Terrell,
Clinical Indicators:
Patient admitted with lightheadedness/weakness; s/p ORIF left periprosthetic humerus fracture 07/28/23.
11/14 Humerus X ray report: 'There is an apparent subacute partially healed periprosthetic fracture of the distal humerus diaphysis, new from prior.'
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 will keep until she get the brace.'
Please clarify which of the following accurately represents the acuity of the left humerus fracture. Possible options might include:
Acute
Subacute
Chronic
Other, please specify
Use of terms such as suspected, likely, concern for, or probable (associated with a specific diagnosis that is being evaluated, monitored, or treated as if it exists) are acceptable and can be coded in the inpatient setting, when documented at the
time of discharge.
Thank you,
LUCAS Aragon RN
CDI Specialist
available via tiger text
Please use your independent medical judgment in providing your response.
--- NOTE | 2023-11-17 16:24 | W.DCSUMMARY ---
Addendum entered and electronically signed by Domenico Tejada MD 11/18/23 15:24:
Other impression
1. Patient with history of humerus fracture status post repair, so there was not active no acute fracture
2. Hyponatremia: Present on admission sodium was 132 then 133, asymptomatic
Original Note:
Discharge Summary
Discharge Data
Date of Admission: 11/14/23
Date of Discharge: 11/17/23
-
Pending Results: No
Hospital Course
Discharging Physician : Dr. Domenico Tejada
Disposition : Home
Primary care physician :
Principal Discharge diagnosis :
1. Lightheadedness likely secondary to dehydration while acute on chronic anemia secondary to recent GI bleed could be a possibility, improved
2. Recent upper GI bleed secondary to duodenal ulcer on Protonix twice daily with a recent EGD
3. Chronic left upper extremity swelling secondary to left humerus fracture with ORIF seen by Ortho they recommended brace from [facility] which is going to delivered to her house tomorrow
4. Nonobstructive coronary artery disease
5. Moderate to severe aortic stenosis., Outpatient follow-up with cardiology
6. Hypertension
7. Dyslipidemia
8. Anxiety and mood disorder.
9. Shortness of SVT and atrial tachycardia no A-fib, outpatient follow-up with his own cardiology for further workup
Chronic Discharge diagnosis :
History of present illness:
Patient is an 78 y/o female with a past medical history of hypertension, hyperlipidemia, duodenal ulcer, aortic stenosis, and anemia who presents for weakness, lightheadedness, shortness of breath, and swelling of the LUE after being discharged from
the hospital two days ago on Wednesday for a bleeding duodenal ulcer. She felt well on Wednesday and Wednesday but woke up feeling weak this morning. After eating breakfast she became lightheaded and felt like she could not catch her breath so she called
an ambulance. She has also had significant swelling in her LUE since IV placement during her hospital stay earlier this week. She states that she has mild swelling in this extremity at baseline from a humerus fracture in July but admits that
this is much worse than usual. She denies fever and chest pain. She notes that she has not had a bowel movement since discharge and denies any rectal bleeding during that time.
Hospital Course :
So patient admitted for lightheadedness and feeling weak as she was recently discharged from the hospital where she was admitted last week for upper GI bleed duodenal ulcer.
Patient given some fluids and overall was doing
Hemoglobin remained stable and gradually increasing, eventually had some dark stool initially but hemoglobin was trending up.
Had no any other symptoms or complaint during hospitalization. Regarding her chronic left arm swelling secondary to ORIF of left humerus, Ortho was consulted and from the point of view no intervention needed and they recommended a brace which is
ordered from [facility].
Also she has some arrhythmia on the admission culture while A-fib seen by cardiology and they think there is no A-fib was episodes of the SVT and atrial tachycardia and they recommended no workup needed and have outpatient follow-up with her in 1
cardiology.
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
Changes to Home Medications: No
Discharge Medications:
DC Medications w/original date entered in [facility]
bupropion HCl 300 mg 24 hr tablet, extended release 300 mg PO DAILY Depression 06/01/22
escitalopram oxalate 20 mg tablet 20 mg PO DAILY Depression 06/01/22
zolpidem 5 mg tablet (Ambien) 5 mg PO HS PRN sleep 06/01/22
olanzapine 2.5 mg tablet (Zyprexa) 2.5 mg PO HS Mental Health/Anxiety 07/25/23
simvastatin 10 mg tablet 10 mg PO HS High Cholesterol 07/25/23
acetaminophen 500 mg tablet (Pain Relief Extra Strength (acetaminophen)) 1,000 mg PO TID PRN mild pain 11/10/23
biotin 1 tab PO HS 11/10/23
lisinopril 20 mg tablet 20 mg PO DAILY Blood Pressure 11/10/23
melatonin 2 tab PO HSPRN PRN sleep 11/10/23
pantoprazole 40 mg tablet,delayed release (Protonix) 40 mg PO BID Gastrointestinal Issue 11/15/23
Home Medication Changes
Pending Results: No
Additional Pending Results:
Physical exam:
General: Awake, alert and oriented x3, not in distress and holds appropriate conversation.
HEENT: No active discharge, ecchymosis or bruising, moist lips, tongue and mucous membrane.
Eyes: No discharge or red conjunctiva, no nystagmus, pupils are reactive and equal
Neck:Supple, no JVD no bruit no goiter.
Respiratory: Normal AP contour and diameter, normal chest wall movement, normal respiratory effort, no respiratory distress,
Lungs: Good air entry bilaterally, no wheezing or rhonchi, no rales or crackles
Heart: S1, S2 regular, normal rate, no added sound.
Gastrointestinal: Positive bowel sounds, soft, nontender, no guarding or rigidity or organomegaly
Musculoskeletal: Scar in the left upper extremity with swelling, chronic no redness, no chest wall abnormality or tenderness. All joints and extremities have good range of motion, no muscle tenderness or any joint swelling or tenderness.
Extremities: Left upper extremity pitting edema, good peripheral pulses, good range of motion
Skin: Warm and dry, no ulceration, normal color.
Neurological: Awake, alert and oriented x3, cranial nerve II-XII grossly intact, speech clear and comprehensive, good muscle tone, normal sensory and motor function
Psychiatric: Normal mood, normal thought and judgment, normal affect,
Condition on discharge: Awake, alert and oriented x3, answer question properly, able to make own decision and take care of activities of daily living, speech clear and comprehensive, continent of the bowel and bladder, ambulate without internal medicine physician assistant,
goes home where lives with the family independently.
Discharge Plan
-
Patient Disposition: Home (Routine Discharge)
Discharge Diagnosis/Procedures: GI blood loss anemia
Condition: Good
Diet: Low Fat, Low Cholesterol and 2 Gram Sodium
Activity: No restrictions
Driving Restrictions: Not until seen by your Dr
Blood Work: Needs complete blood picture, to be ordered by primary care follow-up within a week
Activity Restrictions/Additional Instructions:
May continue with range of motion of left elbow, wrist and hand, nonweightbearing to the left upper extremity.
Follow-up with orthopedic
Follow-up with gastroenterology.
Return to the hospital if symptoms return
Referrals:
Kamini Brasher MD [Non-Admitting Privileges] - (Please follow-up with your field coil winder within a few weeks after discharge. We recommend an outpatient heart monitor to assess for arrhythmias.)
Jonathan Chaney MD [Family Provider] -
Qasim Byrne MD [Active] - (Within 1 to 2 weeks)
Prescriptions:
Continued
zolpidem [Ambien] 5 mg Tablet
5 mg PO HS PRN (Reason: sleep)
escitalopram oxalate 20 mg Tablet
20 mg PO DAILY
bupropion HCl 300 mg Tablet Extended Release 24 Hr
300 mg PO DAILY
simvastatin 10 mg Tablet
10 mg PO HS
olanzapine [Zyprexa] 2.5 mg Tablet
2.5 mg PO HS
lisinopril 20 mg Tablet
20 mg PO DAILY
biotin
1 tab PO HS
melatonin
2 tab PO HSPRN PRN (Reason: sleep)
Patient Comments:
11/10/2023, sublingual dissolvable tablets per pt.
acetaminophen [Pain Relief ES (acetaminophen)] 500 mg tablet
1,000 mg PO TID PRN (Reason: mild pain)
pantoprazole [Protonix] 40 mg tablet,delayed release (DR/EC)
40 mg PO BID
Discharge Orders:
Discharge Patient (As Directed); Ordered 11/17/23
Ordered By: Domenico Tejada
Discharge Date and Time
Discharge Date/Time: 11/17/23 16:21
Print Language: SLOVAK
== END 2023-11-17 16:21 | disposition home health service (06) | DRG 812 ==
LOC: 3 WEST ACU 13:26
PROVIDERS: Physician Assistant Medical; ADMITTING PHYSICIAN Internal Medicine; ATTENDING PHYSICIAN Internal Medicine; CONSULT PHYSICIAN Internal Medicine Cardiovascular Disease; CONSULT PHYSICIAN Orthopaedic Surgery; EMERGENCY PHYSICIAN Emergency Medicine; FAMILY PHYSICIAN Internal Medicine
DX: D62 Acute posthemorrhagic anemia (principal); E87.1 Hypo-osmolality and hyponatremia; I25.10 Atherosclerotic heart disease of native coronary artery without angina pectoris; I35.0 Nonrheumatic aortic (valve) stenosis; N18.9 Chronic kidney disease, unspecified; I12.9 Hypertensive chronic kidney disease with stage 1 through stage 4 chronic kidney disease, or unspecified chronic kidney disease; E78.00 Pure hypercholesterolemia, unspecified; F32.A Depression, unspecified; F41.9 Anxiety disorder, unspecified; G47.00 Insomnia, unspecified; Z87.891 Personal history of nicotine dependence
CPT/HCPCS: 71045; 73060; 80048; 80053; 82728; 83540; 83550; 83735; 83880; 84443; 85014; 85018; 85025; 85027; 85045; 85610; 85730; 86850; 86900; 86901; 93005; 93971; 97116; 97162; 99285

== ENCOUNTER → 2023-11-22 09:41 | Outpatient (REF) | payer MEDICARE, OTHER, SELFPAY ==
[2023-11-22 10:13] LABS: % Basophils 0.9 % (0-2); % Eosinophils 2.7 % (0-6); % Immature Granulocytes 0.9 % (0-0.5); % Lymphocytes 10.3 % (20.5-51.1); % Monocytes 5.8 % (1.7-9.3); % Neutrophils 79.4 % (42.2-75.2); Absolute Basophils 0.1 10^3/uL (0-0.2); Absolute Eosinophils 0.3 10^3/uL (0-0.7); Absolute Immature Granulocytes 0.1 10^3/uL (0-0.05); Absolute Lymphocytes 1.1 10^3/uL (1.2-3.4); Absolute Monocytes 0.6 10^3/uL (0.1-0.6); Absolute Neutrophils 8.3 10^3/uL (1.4-6.5); Hematocrit 26.5 % (37.0-47.0); Hemoglobin 8.4 g/dL (12.0-16.0); Mean Corp Hgb Conc. 31.7 g/dL (33.0-37.0); Mean Corpuscular Hgb 29.4 pg (27.0-31.0); Mean Corpuscular Volume 92.7 fL (81.0-99.0); Mean Platelet Volume 9.9 fL (7.4-10.4); Nucleated Red Blood Cells % 0 %; Platelet Count 410 10^3/uL (130-400); Red Blood Cell Count 2.86 10^6/uL (4.20-5.40); Red Cell Dist. Width 15.8 % (11.5-14.5); White Blood Cell Count 10.5 10^3/uL (4.8-10.8)
[2023-11-22 12:18] LABS: Erythrocyte Sed Rate 31 mm/hour (0-20)
== END ==
LOC: RAD 09:41
PROVIDERS: ATTENDING PHYSICIAN Orthopaedic Surgery Hand Surgery; FAMILY PHYSICIAN Internal Medicine
DX: M79.602 Pain in left arm (principal)
CPT/HCPCS: 36415; 73200; 85025; 85652; 86140; 93971

== ENCOUNTER 2023-11-28 09:13 | Emergency (ER) | payer MEDICARE, OTHER, SELFPAY ==
[2023-11-28 09:29] VITALS: BP 125/92
[2023-11-28 09:55] VITALS: BMI 25.8
--- NOTE | 2023-11-28 09:57 | ED.GENMED ---
History of Present Illness
General
Chief Complaint: Abnormal Lab Value
Source: patient
Exam Limitations: none
Time Seen by Provider: 11/28/23 09:43
Nursing documentation reviewed up to this point in time: agreed with
Travel History
Have you had any contact with someone who has COVID-19?: No
Do you have any symptoms of coronavirus? Fever > 100 degrees, chills, cough, shortness of breath, sore throat, loss of taste or smell, muscle aches, or headache?: No
History of Present Illness
History of Present Illness:
78-year-old female from home with history of asthma, HTN, HLD, GERD, duodenal ulcer, depression, anemia, cholecystectomy presents stating after recently being started on iron, she has had a total of 2 doses she noted dark stools yesterday and today.
She denies chest pain or trouble breathing, denies abdominal pain, denies weakness or fatigue.
She is scheduled for orthopedic surgery on the left humerus with Dr. Alcantar in 2 days.
Past History
Past History
ED Past Medical History: Asthma, CAD, Cancer (Squamous cell), GERD, HTN, Hypercholesterolemia, Valvular disease, Psychiatric (Depression) and Other (Peptic ulcer disease, aortic stenosis, chronic kidney disease, peripheral vascular disease)
ED Past Surgical History: Cholecystectomy, Orthopedic (Right and left shoulder replacement, Left humorous ), Tonsilectomy and Other (Cataracts)
Social History
Tobacco: Former smoker
Alcohol: Occasional
Drug: None
Personal:
Living: with family
Employment: Employed
Review of Systems
Review of Systems
Allergies reviewed?: Yes
All Other Systems: ROS reviewed and negative except as documented in HPI and ROS
Constitutional: Denies fever or fatigue
Respiratory: Denies trouble breathing
Cardiac: Denies chest pain
ABD/GI: Reports black stools; Denies abdominal pain, nausea, vomiting, diarrhea, constipated or anorexia
: Denies dysuria, frequency or difficulty voiding
Musculoskeletal: Reports other (swollen L upper arm unchanged)
Skin: Reports no symptoms
Neurological: Reports no symptoms
Phy Exam
Physical Exam
Physical Exam:
GENERAL: No acute distress. A&Ox3.
CONSTITUTIONAL: Afebrile.
EYES: clear, conjunctivae normal
ENMT: moist mucus membranes, Pharynx nl
RESPIRATORY: Regular respirations, nonlabored, lungs clear.
CARDIOVASCULAR: Regular rate and rhythm, + murmur, no rubs.
GI: Soft, nontender, normal BS
Rectal:Dark brown stool, heme negative
MUSCULOSKELETAL: Moves with ease. Well perfused.
SKIN: Warm, dry, pale
PSYCH: Normal mood and affect. Well kept, interactive and appropriate
NEUROLOGIC: Awake, alert and oriented. No focal neurological deficits
Course
Orders/Labs/Results
Orders:
Orders
11/28/23 10:14
Complete Blood Count/With Diff Urgent
Comprehensive Metabolic Panel Urgent
11/28/23 10:15
Type+Screen Urgent
Abnormal Lab Results
11/28/23
10:14
RBC 3.03 L 10^6/uL
(4.20-5.40)
Hgb 8.8 L g/dL
(12.0-16.0)
Hct 27.6 L %
(37.0-47.0)
MCHC 31.9 L g/dL
(33.0-37.0)
RDW 15.6 H %
(11.5-14.5)
Absolute Neuts (auto) 7.5 H 10^3/uL
(1.4-6.5)
Absolute Lymphs (auto) 0.8 L 10^3/uL
(1.2-3.4)
Absolute Monos (auto) 0.8 H 10^3/uL
(0.1-0.6)
Neutrophils % 79.8 H %
(42.2-75.2)
Lymphocytes % 8.3 L %
(20.5-51.1)
Sodium 132 L mmol/L
(135-145)
BUN 19 H mg/dl
(7-17)
Glucose 123 H mg/dl
(70-99)
Total Protein 5.8 L g/dl
(6.3-8.2)
11/28/23 10:14
11/28/23 10:14
Vital Signs
Initial and Last Documented VS:
Initial Vital Signs
Temp Pulse Resp BP Pulse Ox
98.3 F 81 20 125/92 98
11/28/23 09:29 11/28/23 09:29 11/28/23 09:29 11/28/23 09:29 11/28/23 09:29
Last Documented Vital Signs
Temp Pulse Resp BP Pulse Ox
98.3 F 81 18 125/82 98
11/28/23 11:00 11/28/23 11:00 11/28/23 11:00 11/28/23 11:00 11/28/23 11:00
MDM/Problems Addressed
Differential Diagnosis Includes:
GI bleed, medication side effect
MDM/Problems Addressed:
78-year-old female from home with history of asthma, HTN, HLD, GERD, duodenal ulcer, depression, anemia, cholecystectomy presents stating after recently being started on iron, she has had a total of 2 doses she noted dark stools yesterday and today.
She denies chest pain or trouble breathing, denies abdominal pain, denies weakness or fatigue.
She is scheduled for orthopedic surgery on the left humerus with Dr. Alcantar in 2 days.
Afebrile, NAD
Stool brought from home from yesterday and this a.m., both dark brown, both hematests negative
11:14 AM
CBC: Hemoglobin 8.8 up from 8.4 six days ago
CMP: No clinically significant abnormality
No sign of GI bleed, anemia stable, dark stools most likely from Iron supplement recently started
Patient is stable for discharge
*Critical Care Note
Total Time (30-74mins, 75-104mins- exclusive of procedures): Not Applicable
ED Attending Note
-
Portions of this chart may have been created with voice recognition software.� Occasional wrong word or��sound alike� substitutions may have occurred due to the inherent limitations of voice recognition software.
Discharge Plan
Departure
Patient Disposition: Home (Routine Discharge)
Date of Disposition: 11/28/23
Time of Disposition: 11:15
Patient with high blood pressure during this ER visit?: No
Condition: Good
Discharge Problem:
Dark stools, Chronic anemia
Instructions: Anemia Caused by Low Iron, Adult (DC)
Prescriptions:
No Action
zolpidem [Ambien] 5 mg Tablet
5 mg PO HS PRN (Reason: sleep)
escitalopram oxalate 20 mg Tablet
20 mg PO DAILY
bupropion HCl 300 mg Tablet Extended Release 24 Hr
300 mg PO DAILY
simvastatin 10 mg Tablet
10 mg PO HS
olanzapine [Zyprexa] 2.5 mg Tablet
2.5 mg PO HS
lisinopril 20 mg Tablet
20 mg PO DAILY
biotin
1 tab PO HS
melatonin
2 tab PO HSPRN PRN (Reason: sleep)
Patient Comments:
11/10/2023, sublingual dissolvable tablets per pt.
acetaminophen [Pain Relief ES (acetaminophen)] 500 mg tablet
1,000 mg PO TID PRN (Reason: mild pain)
pantoprazole [Protonix] 40 mg tablet,delayed release (DR/EC)
40 mg PO BID
Referrals:
Jonathan Chaney MD [Family Provider] - As needed
Willard Alcantar MD [Active] - Keep scheduled appt
Activity Restrictions/Additional Instructions:
As we discussed, there is nothing worrisome in your workup here today.
Your stools were all negative for blood, the dark color is most likely related to the iron
Interventions
Interventions:
*Risk Screen - Suicide Last Done: 11/28/23 10:07
*General Assessment Last Done: 11/28/23 10:07
*Neglect/Abuse Screening Last Done: 11/28/23 10:07
ED- Fall Risk Assessment Last Done: 11/28/23 10:07
*ED COVID-19 Vaccine History Last Done: 11/28/23 10:07
*Nursing Disposition Last Done: 11/28/23 11:35
Discharge Date and Time
Discharge Date/Time: 11/28/23 11:35
Print Language: MALAY
[2023-11-28 10:43] LABS: % Eosinophils 2.1 % (0-6); % Immature Granulocytes 0.4 % (0-0.5); % Lymphocytes 8.3 % (20.5-51.1); % Monocytes 8.4 % (1.7-9.3); % Neutrophils 79.8 % (42.2-75.2); Absolute Basophils 0.1 10^3/uL (0-0.2); Absolute Eosinophils 0.2 10^3/uL (0-0.7); Absolute Lymphocytes 0.8 10^3/uL (1.2-3.4); Absolute Monocytes 0.8 10^3/uL (0.1-0.6); Absolute Neutrophils 7.5 10^3/uL (1.4-6.5); Hematocrit 27.6 % (37.0-47.0); Hemoglobin 8.8 g/dL (12.0-16.0); Mean Corp Hgb Conc. 31.9 g/dL (33.0-37.0); Mean Corpuscular Volume 91.1 fL (81.0-99.0); Mean Platelet Volume 10.3 fL (7.4-10.4); Nucleated Red Blood Cells % 0 %; Platelet Count 370 10^3/uL (130-400); Red Blood Cell Count 3.03 10^6/uL (4.20-5.40); Red Cell Dist. Width 15.6 % (11.5-14.5); White Blood Cell Count 9.4 10^3/uL (4.8-10.8)
[2023-11-28 10:44] LABS: ALT (SGPT) 16 U/L (0-35); AST (SGOT) 19 U/L (14-36); Albumin 3.6 g/dl (3.5-5.0); Alkaline Phosphatase 100 U/L (38-126); Blood Urea Nitrogen 19 mg/dl (7-17); Calcium 9.1 mg/dl (8.4-10.2); Carbon Dioxide 26 mmol/L (22-30); Chloride 104 mmol/L (98-107); Estimated Creatinine Clearance 45 ml/min; Glucose 123 mg/dl (70-99); Potassium 4.6 mmol/L (3.5-5.1); Sodium 132 mmol/L (135-145); Total Bilirubin 0.3 mg/dl (0.2-1.3); Total Protein 5.8 g/dl (6.3-8.2); eGFR > 60.00
[2023-11-28 11:00] VITALS: BP 125/82
== END 2023-11-28 11:35 | disposition home or self-care (01) ==
LOC: EMR 09:13
PROVIDERS: Registered Nurse; EMERGENCY PHYSICIAN Emergency Medicine; FAMILY PHYSICIAN Internal Medicine
DX: D64.9 Anemia, unspecified (principal); K92.1 Melena; Z87.891 Personal history of nicotine dependence; E78.00 Pure hypercholesterolemia, unspecified; J45.909 Unspecified asthma, uncomplicated; K21.9 Gastro-esophageal reflux disease without esophagitis; K26.9 Duodenal ulcer, unspecified as acute or chronic, without hemorrhage or perforation; F32.A Depression, unspecified; I10 Essential (primary) hypertension; Z90.49 Acquired absence of other specified parts of digestive tract
CPT/HCPCS: 99283; 80053; 85025; 86850; 86900; 86901; 86920; P9016

== ENCOUNTER 2023-11-30 06:19 | Inpatient (IN) | payer MEDICARE, OTHER, SELFPAY ==
[2023-11-29 06:36] VITALS: BMI 26.6
[2023-11-29 06:59] VITALS: BMI 26.6
[2023-11-29 08:54] LABS: Hematocrit 28.5 % (37.0-47.0); Hemoglobin 9.3 g/dL (12.0-16.0); Mean Corp Hgb Conc. 32.6 g/dL (33.0-37.0); Mean Corpuscular Hgb 28.9 pg (27.0-31.0); Mean Corpuscular Volume 88.5 fL (81.0-99.0); Mean Platelet Volume 11.5 fL (7.4-10.4); Platelet Count 335 10^3/uL (130-400); Red Blood Cell Count 3.22 10^6/uL (4.20-5.40); Red Cell Dist. Width 15.6 % (11.5-14.5); White Blood Cell Count 10.1 10^3/uL (4.8-10.8)
[2023-11-29 09:38] LABS: Blood Urea Nitrogen 28 mg/dl (7-17); Calcium 9.4 mg/dl (8.4-10.2); Carbon Dioxide 18 mmol/L (22-30); Chloride 102 mmol/L (98-107); Estimated Creatinine Clearance 35 ml/min; Glucose 93 mg/dl (70-99); Potassium 4.9 mmol/L (3.5-5.1); Sodium 132 mmol/L (135-145); eGFR 56.95
--- NOTE | 2023-11-29 12:44 | PTCARENOTE ---
Patients 11/28 GFR 56.95- Jenelle @ Dr. Pollack office notified
[2023-11-30] VITALS (10 sets, daily range): BP systolic 112–155; BP diastolic 55–77; BMI 26.6
[2023-11-30] MEDS: CELEBREX 200 MG PO (14:03)
[2023-11-30] MEDS: NORMOSOL-R 1000 IV (14:10)
--- NOTE | 2023-11-30 20:10 | PTCARENOTE ---
Pt arrived 2s via bed from PACU. Pt AAOX3. pt complains of no pain. VSS. Head to toe assessment complete. Left arm zehra bandaged and in brace. Pt OOB X1 to the bathroom. Pts family at bedside. Bed in lowest position and locked. Call reaves with in
reach.
--- NOTE | 2023-11-30 20:50 | W.PN.UPDATE ---
Update Note
Progress Note Update
78-year-old female status post left reverse total shoulder arthroplasty periprosthetic fracture with failure of hardware and nonunion revision ORIF with Dr. Alcantar
-Hold DVT chemoprophylaxis at this time; SCDs
-Prolonged case; Celis was not placed. Bladder scan protocol ordered
-Nonweightbearing to left upper extremity; sling at all times with abduction pillow.
-PT/OT/discharge planning
-Postop antibiotics Ancef every 8 as ordered
-Aquacel dressing x 2 for both anterior and posterior incisions. Channing overwrap placed
-Monitor hemoglobin/hematocrit; 2 units transfused in OR planned in advance. No intraoperative complications relative to blood loss
-Regular diet
-Pain regimen placed
--- NOTE | 2023-11-30 21:59 | CON.HOSP ---
Consultation
-
Date/Time Consultation Requested: 11/30/20232113
Date/Time Consultation Performed: 11/30/20232199
Requesting Provider: Roland Brooks
Performing Provider: Chaitanya Enciso
Reason for Consultation: Medical Management - Post-Op anemia, Hyponatremia, Aortic Stenosis, Hx GIB
Family Physician
-
Family Physician: Jonathan Chaney
Chief Complaint
-
Post-Op consultation for medical management
History of Present Illness
Very pleasant 78yo F with PMH Atrial Tachycardia/SVT, CAD, HTN/HLD, Mod-Severe Aortic Stenosis (observation), PVD, Hx Duodenal Ulcer/GIB (last admission), Asthma, GERD, Chronic Anemia, Anxiety/Depression evaluated POD#0 Revision ORIF Left Shoulder
for failure of hardware with nonunion. Pt had a fall about 4 months ago. Reports in appropriate healing following initial repair. Post-operatively she only complains of 2/10 pain and denies any flatus or BM of yet. Pt did receive 2u PRBC
intraoperatively with Hgb 9.3 g/dL on 11/28. Denies HAROLDO/oxygen requirements. Denies fever, chills, chest pain, palps, wheezing, cough, abd pain, n/v/d/c, dysuria, calf or leg pain.
Dog Behaviorist: [facility] at [place]
Medical History
Past Medical History
Past Medical History: Reports Other (Atrial Tachycardia/SVT, CAD, HTN/HLD, Mod-Severe Aortic Stenosis (observation), PVD, Hx Duodenal Ulcer/GIB (last admission), Asthma, GERD, Chronic Anemia, Anxiety/Depression)
Past Surgical History: Reports Other (Cholecystectomy (01/2022), Orthopedic (Right and left shoulder replacement 12/2021,02/2022), Tonsilectomy, Left TKA (06/2022), ORIF Left Humerus (07/2023), Revision ORIF (11/29))
Additional Past Surgical History:
Social History Tobacco: Former smoker Alcohol: Occasional Drug: None Personal: Living: with family Employment: Employed
Social History
Tobacco: Former Smoker (Quit in age 20s)
Alcohol: Occasional (social)
Drug: None
Personal:
Living: With Family
Family History
Family History: Reviewed & Not Pertinent (Denies any Family medical problems)
Allergies / Home Medications
Allergies reflects when Allergies were last updated in [employer].
Home Medications with original date entered in [employer]
Allergy/Medication List:
Allergies
Allergy/AdvReac Type Severity Reaction Status Date / Time
pollen extracts Allergy nasal Verified 11/30/23 13:54
congestion
Home Medications
bupropion HCl 300 mg 24 hr tablet, extended release 300 mg PO DAILY Depression 06/01/22
escitalopram oxalate 20 mg tablet 20 mg PO DAILY Depression 06/01/22
zolpidem 5 mg tablet (Ambien) 5 mg PO HS PRN sleep 06/01/22
olanzapine 2.5 mg tablet (Zyprexa) 2.5 mg PO HS Mental Health/Anxiety 07/25/23
simvastatin 10 mg tablet 10 mg PO HS High Cholesterol 07/25/23
acetaminophen 500 mg tablet (Pain Relief Extra Strength (acetaminophen)) 1,000 mg PO TID PRN mild pain 11/10/23
lisinopril 20 mg tablet 20 mg PO DAILY Blood Pressure 11/10/23
melatonin 1 tab PO HSPRN PRN sleep 11/10/23
pantoprazole 40 mg tablet,delayed release (Protonix) 40 mg PO BID Gastrointestinal Issue 11/15/23
Slow Release Iron 45 mg PO .3 TIMES PER WEEK 11/29/23
Review of Systems
-
A 12 point Review of Systems was completed except as noted: Yes
Physical Exam
Vital Signs
Vital Signs
Temp Pulse Resp BP Pulse Ox
97 F 72 12 128/64 97
11/30/23 21:30 11/30/23 21:30 11/30/23 21:30 11/30/23 21:30 11/30/23 21:30
Physical Exam
General: Well Developed, Well Nourished and No Apparent Distress
HEENT: Normocephalic, Moist Mucous Membranes and Atraumatic
Respiratory: Clear
Cardiac: S1/S2, Regular Rhythm and Murmur (+3/6 ESTRELLITA)
GI: Soft, Non Tender, Non Distended and Normal Bowel Sounds
Rectal: Deferred by Provider
Musculoskeletal: No Clubbing, No Cyanosis, No Edema and Other (+LUE in sling. +TTP. Neurovascullary intact. )
Skin: Negative Rash
Neuro: Awake, Alert, Oriented, AO x 3, No Motor Deficits (Noting limitation of LUE. ) and Nonfocal/Grossly Intact
Hematologic/Lymphatic: No Lymphadenopathy
Psych: Calm
Laboratory Results
-
Laboratory Results
11/29/23 06:51
11/29/23 06:51
Data Reviewed
-
Diagnostic Radiology: Image personally visualized and interpreted
Medical Tests (Nuc Med, Echo, EKG etc): Image personally visualized and interpreted
Lab Data: Labs Reviewed
Old Records: Reviewed
Impression / Plan
-
POD#0 Revision ORIF Left Humerus
- S/P Left ORIF 07/2023. Failure of hardware with nonunion. POD#0
- Reporting mild 2/10 Pain, Continue analgesia per primary team
- Will reassess tomorrow for chemical DVT ppx if hemoglobin remains stable.
Acute Hypoxic Respiratory Failure
- Pt requiring 2LNC post-operatively. I did remove oxygen with decrease to 88-89%, placed back on 2LNC
- Will obtain CXR to assess for congestion/flash pulm edema in setting of 2u PRBC transfusion intraoperatively .
- Could alternatively be related to anesthetics. Wean o2 as tolerated. Add nebs prn. Continue IS
- Consider light diuresis pending CXR result.
Severe Aortic Stenosis
- TTE 07/2023: EF 60-65%, Mod-Severe with AV area 0.9cm^2
- Pt being observed with Dog Behaviorist at [place] Dr. Brasher, no current plans for intervention
- Monitor volume status/preload in setting of transfusion closely.
Anemia
- Hgb 9.3 g/dL on 11/29/2023. MCV 89. At or above baseline. Trend CBC in AM
- S/P 2u PRBC intraoperatively. Reassess for chemical DVT ppx pending stability.
- No further GIB since discharge.
Hyponatremia - Na 132 on 11/29/2023. Suspect mild dehydration. Likely to improve with colloid resuscitation 2u PRBC given intra-op. Repeat for Tomorrow. Check TSH for completeness.
Atrial Arrhythmia - Noted on last admission. Suspected SVT for Atrial Tachycardia. She is not on any AVNB.
CAD/HTN/HLD - BP stable. Continue home zehra-i/statin. No longer on aspirin therapy.
Hx GIB - S/P EGD last admission. Duodenal ulcer noted. Continue home PPI BID. No further bleeding reported. Consider guaiac testing if any s/s.
Anxiety / Depression / Insomnia
-Continue Lexapro, bupropion and Zyprexa
-Continue Ambien prn
Code Status: Full
[2023-11-30] MEDS: LIPITOR 10 MG PO (23:15)
[2023-11-30] MEDS: SENOKOT 17.1999999999999993 MG PO (23:15)
[2023-11-30] MEDS: COLACE 100 MG PO (23:15)
[2023-12-01] VITALS (7 sets, daily range): BP systolic 112–134; BP diastolic 54–66; PULSE 76–80; O2SAT 98–99
[2023-12-01] MEDS: ZYPREXA 2.5 MG PO ×2 (00:04→21:39)
[2023-12-01] MEDS: ANCEF 5 IV ×2 (00:05→06:37)
[2023-12-01 06:34] LABS: Hematocrit 35.3 % (37.0-47.0); Hemoglobin 11.9 g/dL (12.0-16.0)
[2023-12-01 06:40] LABS: Blood Urea Nitrogen 21 mg/dl (7-17); Calcium 8.8 mg/dl (8.4-10.2); Carbon Dioxide 21 mmol/L (22-30); Chloride 102 mmol/L (98-107); Estimated Creatinine Clearance 44 ml/min; Glucose 99 mg/dl (70-99); Sodium 130 mmol/L (135-145); eGFR > 60.00
[2023-12-01] MEDS: LEXAPRO 20 MG PO (08:24)
[2023-12-01] MEDS: WELLBUTRIN XL (24 hour extended release) 300 MG PO (08:24)
[2023-12-01] MEDS: COLACE 100 MG PO ×2 (08:24→20:10)
[2023-12-01] MEDS: SENOKOT 17.1999999999999993 MG PO ×2 (08:24→20:10)
[2023-12-01] MEDS: PROTONIX 40 MG PO ×2 (08:24→20:10)
[2023-12-01] MEDS: ZESTRIL 20 MG PO (08:24)
[2023-12-01] MEDS: FEOSOL 325 MG PO (08:27)
--- NOTE | 2023-12-01 09:45 | W.PN.ORTHO ---
Today's Communication / Plan
-
78 yo F POD1 following her revision ORIF left periprosthetic humerus fracture under the direction of Dr. Alcantar
--Sling for immobilization. Strict non-weight bearing to left upper extremity.
--Hold chemoprophylaxis for DVT at this time. SCDs.
--Patient exhibiting signs concerning for radial nerve damage. Continue to monitor distal sensation and wrist drop.
--Maintain surgical dressings until 2 weeks post-op. Follow up outpatient for repeat x-rays and staple removal.
--Hgb 11.9. Continue to monitor.
--Continue current pain management regimen.
--Case management consult for d/c planning. Patient is primary caregiver for her , and would benefit from home care.
Assessment
.
Dressing:
Clean, dry and intact.
Plan
.
Surgery / Date: Revision ORIF left humerus fracture, [facility], 11/29
DVT Prophylaxis: Aspirin
Activity:
Out of bed.
PT/OT
Subjective
.
.:
Ms. Manuel is POD 1 following her revision left periprosthetic midshaft humerus fracture performed by Dr. Alcantar. She is resting comfortably in bed this morning, and reports her pain is well controlled at present. She reports her nerve block is
starting to wear off, but she does endorse continued numbness/tingling in her fingres.
Vital Signs and Labs
.
Vital Signs and Labs:
Lab Results
12/01/23 06:04
12/01/23 06:04
Temp Pulse Resp BP Pulse Ox
97.5 F 70 16 127/54 100
12/01/23 07:45 12/01/23 08:24 12/01/23 08:12 12/01/23 08:24 12/01/23 08:12
Physical Exam
-
Directed exam of the left upper extremity reveals surgical dressings clean, dry and intact. Upper arm soft and compressible. Patient able to wiggle fingers. Patient unable to extend thumb or wrist. Sensation intact to light touch. Capillary refill
<2 seconds.
--- NOTE | 2023-12-01 10:32 | VNURNOTE ---
Patient is current with [facility] since 11/17 w/SN, will monitor progress and plan.
--- NOTE | 2023-12-01 11:47 | W.PN.HOSP.TC ---
Today's Communication/Plan
-
monitor vitals
see plan
PT/OT
cw IS
Assessment / Plan
Assessment / Plan
General: Well Developed, Well Nourished and No Apparent Distress
HEENT: Normocephalic, Moist Mucous Membranes and Atraumatic
Respiratory: Clear
Cardiac: S1/S2, Regular Rhythm and Murmur (+3/6 ESTRELLITA)
GI: Soft, Non Tender, Non Distended and Normal Bowel Sounds
Musculoskeletal: No Clubbing, No Cyanosis, No Edema and Other (+LUE in sling)
Skin: Negative Rash
Neuro: Awake, Alert, Oriented, AO x 3, No Motor Deficits (Noting limitation of LUE. ) and Nonfocal/Grossly Intact
Psych: Calm
POD#1 Revision ORIF Left Humerus
- S/P Left ORIF 07/2023. Failure of hardware with nonunion.
pain management
PT/OT
sling LUE
defer chemical ppx to ortho
appears does have some radial nerve damage;management per ortho
Acute Hypoxic Respiratory insufficiency secondary to atelectasis
- Pt requiring 2LNC post-operatively.
Chest x-ray consistent with atelectasis, continue IS
now on room air
Severe Aortic Stenosis
- TTE 07/2023: EF 60-65%, Mod-Severe with AV area 0.9cm^2
- Pt being observed with Dosier Operator at [place] Dr. Brasher, no current plans for intervention
- Monitor volume status/preload in setting of transfusion closely.
Anemia
suspect anemia of chronic disease
- S/P 2u PRBC intraoperatively. Reassess for chemical DVT ppx pending stability.
- No further GIB since discharge.
Hyponatremia - Na 130 Suspect mild dehydration. does have chronic hyponatremia. Continue
Atrial Arrhythmia - Noted on last admission. Suspected SVT for Atrial Tachycardia. She is not on any AVNB.
CAD/HTN/HLD - BP stable. Continue home zehra-i/statin. No longer on aspirin therapy.
Hx GIB - S/P EGD last admission. Duodenal ulcer noted. Continue home PPI BID. No further bleeding reported. Consider guaiac testing if any s/s.
Anxiety / Depression / Insomnia
-Continue Lexapro, bupropion and Zyprexa
-Continue Ambien prn
Code Status: Full
Anticipated Discharge: Within 24 hours
Subjective/Interval History
-
Date of Service: December 01, 2023
denies nausea
Objective Data
-
Labs:
Laboratory Results
12/01/23
06:04
Hgb 11.9 L D
Hct 35.3 L
Sodium 130 L
Potassium 5.0
Chloride 102
Carbon Dioxide 21 L
BUN 21 H
Creatinine 0.8
Glucose 99
Calcium 8.8
Vital Signs:
Vital Signs
Temp Pulse Resp BP Pulse Ox
97.5 F 70 16 127/54 100
12/01/23 07:45 12/01/23 08:24 12/01/23 08:12 12/01/23 08:24 12/01/23 08:12
I&O
11/30/23 12/01/23 12/02/23
06:59 06:59 06:59
Intake Total 480 / 480
Output Total 250 / 250
Balance 230 / 230
[2023-12-01] MEDS: TYLENOL 1000 MG PO (17:04)
--- NOTE | 2023-12-01 18:06 | CM ---
manager art reviewed patient's chart and met with patient and spouse at bedside, patient lives with spouse at [facility], patient is independent with adl's and uses a walker with ambulation, [facility] pharmacy, PCP: dr. Chaney, plan is for
skilled v's home with [facility].
Referral sent to [facility] and [facility]
[2023-12-01] MEDS: MELATONIN 3 MG PO (20:10)
[2023-12-01] MEDS: ROXICODONE 10 MG PO (20:10)
[2023-12-01] MEDS: DILAUDID IV (21:38)
[2023-12-01] MEDS: LIPITOR 10 MG PO (21:39)
[2023-12-01] MEDS: DILAUDID 0.25 MG IV (22:21)
[2023-12-02] MEDS: DILAUDID 0.25 MG IV ×2 (03:26→05:11)
[2023-12-02 06:50] LABS: % Basophils 0.4 % (0-2); % Eosinophils 1.1 % (0-6); % Immature Granulocytes 0.6 % (0-0.5); % Lymphocytes 6.6 % (20.5-51.1); % Monocytes 14.3 % (1.7-9.3); Absolute Basophils 0.1 10^3/uL (0-0.2); Absolute Eosinophils 0.1 10^3/uL (0-0.7); Absolute Immature Granulocytes 0.1 10^3/uL (0-0.05); Absolute Lymphocytes 0.8 10^3/uL (1.2-3.4); Absolute Monocytes 1.8 10^3/uL (0.1-0.6); Absolute Neutrophils 9.7 10^3/uL (1.4-6.5); Hematocrit 30.4 % (37.0-47.0); Hemoglobin 10.3 g/dL (12.0-16.0); Mean Corp Hgb Conc. 33.9 g/dL (33.0-37.0); Mean Corpuscular Hgb 28.9 pg (27.0-31.0); Mean Corpuscular Volume 85.4 fL (81.0-99.0); Mean Platelet Volume 10.6 fL (7.4-10.4); Nucleated Red Blood Cells % 0 %; Platelet Count 291 10^3/uL (130-400); Red Blood Cell Count 3.56 10^6/uL (4.20-5.40); Red Cell Dist. Width 14.8 % (11.5-14.5); White Blood Cell Count 12.6 10^3/uL (4.8-10.8)
[2023-12-02 07:08] LABS: Blood Urea Nitrogen 24 mg/dl (7-17); Calcium 8.9 mg/dl (8.4-10.2); Carbon Dioxide 21 mmol/L (22-30); Chloride 97 mmol/L (98-107); Estimated Creatinine Clearance 44 ml/min; Glucose 105 mg/dl (70-99); Potassium 4.6 mmol/L (3.5-5.1); Sodium 124 mmol/L (135-145); eGFR > 60.00
[2023-12-02 07:39] VITALS: BP 150/69
[2023-12-02] MEDS: COLACE 100 MG PO ×2 (07:55→20:10)
[2023-12-02] MEDS: WELLBUTRIN XL (24 hour extended release) 300 MG PO (07:55)
[2023-12-02] MEDS: ZESTRIL 20 MG PO (07:55)
[2023-12-02] MEDS: LEXAPRO 20 MG PO (07:55)
[2023-12-02] MEDS: PROTONIX 40 MG PO ×2 (07:55→20:10)
[2023-12-02] MEDS: SENOKOT 17.1999999999999993 MG PO ×2 (07:55→20:10)
[2023-12-02] MEDS: ROXICODONE 10 MG PO ×2 (07:59→22:46)
--- NOTE | 2023-12-02 11:08 | W.PN.HOSP.TC ---
Today's Communication/Plan
-
monitor vitals
see plan
check urine and serum studies for hyponatremia
Hold Lexapro for now
Nephrology to see
Assessment / Plan
Assessment / Plan
General: Well Developed, Well Nourished and No Apparent Distress
HEENT: Normocephalic, Moist Mucous Membranes and Atraumatic
Respiratory: Clear
Cardiac: S1/S2, Regular Rhythm and Murmur (+3/6 ESTRELLITA)
GI: Soft, Non Tender, Non Distended and Normal Bowel Sounds
Musculoskeletal: No Clubbing, No Cyanosis, No Edema and Other (+LUE in sling)
Skin: Negative Rash
Neuro: Awake, Alert, Oriented, AO x 3, No Motor Deficits (Noting limitation of LUE. ) and Nonfocal/Grossly Intact
Psych: Calm
POD#2 Revision ORIF Left Humerus
- S/P Left ORIF 07/2023. Failure of hardware with nonunion.
pain management
PT/OT
sling LUE
defer chemical ppx to ortho
appears does have some radial nerve damage;management per ortho
Acute Hypoxic Respiratory insufficiency secondary to atelectasis
- Pt requiring 2LNC post-operatively.
Chest x-ray consistent with atelectasis, continue IS
now on room air
Acute Hyponatremia - does have chronic hyponatremia it appears like. Na now 124l check urine and serum studies. consult nephrology. hold lexapro for now
Severe Aortic Stenosis
- TTE 07/2023: EF 60-65%, Mod-Severe with AV area 0.9cm^2
- Pt being observed with Ferryboat Captain at [place] Dr. Brasher, no current plans for intervention
- Monitor volume status/preload in setting of transfusion closely.
Anemia
suspect anemia of chronic disease
- S/P 2u PRBC intraoperatively. Reassess for chemical DVT ppx pending stability.
- No further GIB since discharge.
Atrial Arrhythmia - Noted on last admission. Suspected SVT for Atrial Tachycardia. She is not on any AVNB.
CAD/HTN/HLD - BP stable. Continue home zehra-i/statin. No longer on aspirin therapy.
Hx GIB - S/P EGD last admission. Duodenal ulcer noted. Continue home PPI BID. No further bleeding reported. Consider guaiac testing if any s/s.
Anxiety / Depression / Insomnia
-on Lexapro, bupropion and Zyprexa
-Continue Ambien prn
Code Status: Full
Anticipated Discharge: Within 24 hours
Subjective/Interval History
-
Date of Service: December 02, 2023
does have some weakness LUE
Objective Data
-
Labs:
Laboratory Results
12/02/23
05:55
WBC 12.6 H
Hgb 10.3 L
Hct 30.4 L
Plt Count 291
Sodium 124 L
Potassium 4.6
Chloride 97 L
Carbon Dioxide 21 L
BUN 24 H
Creatinine 0.8
Glucose 105 H
Calcium 8.9
Vital Signs:
Vital Signs
Temp Pulse Resp BP Pulse Ox
97.9 F 76 17 150/69 95
12/02/23 07:39 12/02/23 07:39 12/02/23 07:39 12/02/23 07:39 12/02/23 07:39
I&O
12/01/23 12/02/23 12/03/23
06:59 06:59 06:59
Intake Total 480 / 480 1320 / 1320 120 / 120
Output Total 250 / 250
Balance 230 / 230 1320 / 1320 120 / 120
--- NOTE | 2023-12-02 11:17 | W.PN.UPDATE ---
Update Note
Progress Note Update
Ms. Manuel is POD2 following her revision ORIF left periprostehtic humerus fracture performed by Dr. Alcantar. She is resting comfortably in bed this morning. She denies any significant pain in the arm at present. She reports continued difficulty
extending her wrist.
Directed exam of the left upper extremity reveals Aquacel dressing clean, dry and intact. Patient able to wiggle fingers. Unable to extend wrist or thumb. Sensation intact to light touch about median and ulnar nerve distributions. Sensation to light
touch lost in radial nerve distribution. Cap refill <2 seconds.
Hgb 10.3 today.
78 yo F POD2 following her revision ORIF left periprosthetic humerus fracture under the direction of Dr. Alcantar
--Sling for immobilization. Strict non-weight bearing to left upper extremity.
--Hold chemoprophylaxis for DVT at this time. SCDs.
--Patient exhibiting signs concerning for radial nerve damage. Continue to monitor distal sensation and wrist drop.
--Maintain surgical dressings until 2 weeks post-op. Follow up outpatient for repeat x-rays and staple removal.
--Hgb 10.3. Continue to monitor.
--Sodium low at 124 this morning. nephrology consulted. Serum and urine studies ordered.
--Continue current pain management regimen.
--Case management consult for d/c planning. Patient is primary caregiver for her , and would benefit from home care.
[2023-12-02 11:49] LABS: Osmolality Serum 263 mOsm/kg (275-300)
--- NOTE | 2023-12-02 12:37 | W.CON.NEPH ---
Consultation
-
Date/Time Consultation Requested: 12/02/2023 9 AM
Date/Time Consultation Performed: 12/02/2023 1230
Requesting Provider: Jay
Performing Provider: Dr. Toscano
Reason for Consultation: Hyponatremia
Medical History
-
Chief Complaint: Hyponatremia
History of Present Illness:
The patient is an 78-year-old female with a past medical history of hypertension maintained on lisinopril therapy. She is maintained on both escitalopram and bupropion for depression. She is maintained on statin therapy for her history of
dyslipidemia.The patient underwent ORIF Left Shoulder for failure of hardware with nonunion. Pt had a fall about 4 months ago. Reports in appropriate healing following initial repair. Following her surgery she has now developed with hyponatremia
with her serum sodium now depressed to 124 and nephrology was consulted to see the patient
Past Medical History
(Atrial Tachycardia/SVT, CAD, HTN/HLD, Mod-Severe Aortic Stenosis (observation), PVD, Hx Duodenal Ulcer/GIB (last admission), Asthma, GERD, Chronic Anemia, Anxiety/Depression)
Past Surgical History: Reports Other (Cholecystectomy (01/2022), Orthopedic (Right and left shoulder replacement 12/2021,02/2022), Tonsilectomy, Left TKA (06/2022), ORIF Left Humerus (07/2023), Revision ORIF (11/29))
Additional Past Surgical History:
Social History
Tobacco: Non-Smoker
Alcohol: None
Drug: None
Family History
no ckd
Allergies / Home Medications
Allergy/AdvReac Type Severity Reaction Status Date / Time
pollen extracts Allergy nasal Verified 11/30/23 13:54
congestion
�Medication �Instructions �Recorded �Confirmed �Type
bupropion HCl 300 mg 24 hr tablet, 300 mg PO DAILY Depression 06/01/22 11/30/23 History
extended release
escitalopram oxalate 20 mg tablet 20 mg PO DAILY Depression 06/01/22 11/30/23 History
zolpidem 5 mg tablet (Ambien) 5 mg PO HS PRN sleep 06/01/22 11/30/23 History
olanzapine 2.5 mg tablet (Zyprexa) 2.5 mg PO HS Mental Health/Anxiety 07/25/23 11/30/23 History
simvastatin 10 mg tablet 10 mg PO HS High Cholesterol 07/25/23 11/30/23 History
acetaminophen 500 mg tablet (Pain 1,000 mg PO TID PRN mild pain 11/10/23 11/30/23 History
Relief Extra Strength
(acetaminophen))
lisinopril 20 mg tablet 20 mg PO DAILY Blood Pressure 11/10/23 11/30/23 History
melatonin 1 tab PO HSPRN PRN sleep 11/10/23 11/30/23 History
pantoprazole 40 mg tablet,delayed 40 mg PO BID Gastrointestinal Issue 11/15/23 11/30/23 History
release (Protonix)
Slow Release Iron 45 mg PO .3 TIMES PER WEEK 11/29/23 11/30/23 History
Supplement
Review of Systems
-
History Source: Patient
All other systems: Negative unless noted
Constitutional: No Symptoms
EENT: No Symptoms
Respiratory: No Symptoms
Cardiac: No Symptoms
Abdomen/GI: Constipated
: No Symptoms
Musculoskeletal: Other (left shoulder post operative pain)
Skin: No Symptoms
Neurological: No Symptoms
Endocrine: No Symptoms
Hematologic/Lymphatic: No Symptoms
Physical Exam
Vital Signs
Vital Signs
Temp Pulse Resp BP Pulse Ox
97.9 F 76 17 150/69 95
12/02/23 07:39 12/02/23 07:39 12/02/23 07:39 12/02/23 07:39 12/02/23 07:39
Lab Results
WBC 12.6 10^3/uL (4.8-10.8) H 12/02/23 05:55
RBC 3.56 10^6/uL (4.20-5.40) L 12/02/23 05:55
Hgb 10.3 g/dL (12.0-16.0) L 12/02/23 05:55
Hct 30.4 % (37.0-47.0) L 12/02/23 05:55
Plt Count 291 10^3/uL (130-400) 12/02/23 05:55
Sodium 124 mmol/L (135-145) L 12/02/23 05:55
Potassium 4.6 mmol/L (3.5-5.1) 12/02/23 05:55
Chloride 97 mmol/L (98-107) L 12/02/23 05:55
Carbon Dioxide 21 mmol/L (22-30) L 12/02/23 05:55
BUN 24 mg/dl (7-17) H 12/02/23 05:55
Creatinine 0.8 mg/dL (0.6-1.0) 12/02/23 05:55
eGFR > 60.00 12/02/23 05:55
Glucose 105 mg/dl (70-99) H 12/02/23 05:55
Calcium 8.9 mg/dl (8.4-10.2) 12/02/23 05:55
Physical Exam
General: AOx3, Nontoxic , NAD
HEENT: PERRL, EOMI, Anicteric, Conjunctivae Clear, Ear/Nose Intact, Hearing Normal, Oropharynx Clear/Moist, Dentition Intact, Facial Symmetry, Neck Supple, Neck: Trachea Midline, No JVD and No Thyromegaly, no Bruits
Respiratory: Clear to auscultation bilaterally with normal lung exersion
Cardiac: S1/S2 and Regular Rate/Rhythm with 5/6 ESTRELLITA
Breast: Deferred by me
Abdomen: Soft, Nontender, Nondistended, Normal Bowel Sounds and No Hepatosplenomegaly
Rectal: Deferred by Provider
Genito-urinary: No Costovertebral Tenderness
Extremities: No Clubbing, No Cyanosis and No Edema
Skin: No Rash or open lesions
Neuro: Nonfocal/Grossly Intact, CN II-XII (Intact)
Musculoskeletal:: 5 out of 5 in lower extremities left upper extremity in sling
Hematologic/Lymphatic: No Cervical Lymphadenopathy, No Submandibular Lymphadenopathy and No Supraclavicular Lymphadenopathy
Psych: Mood/afflect pleasant, Insight/judgement good and Appropriate
Vascular: plus 2 pedal and radial pulses
Data Reviewed
-
Radiology: Image Personally Visualized and interpreted (423 chest x-ray personally reviewed bilateral shoulder hardware noted no evidence of congestive heart failure or pneumonic process)
Labs: Labs Reviewed by me (BMP urine osmolality)
Old Records: Reviewed
Critical Care Time (in minutes): Serum sodium 133 on 11/15/2023
Assessment/Plan
-
Impression:
Euvolemic hyponatremia
Postop revision of ORIF of left humerus
Severe aortic stenosis
Anemia
history of SVT and atrial tachycardia
CAD
HTN
Hx of GIB
Anxiety depression
Plan:
Hyponatremia:
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
-48 ounce fluid restriction in place
-Tolvaptan 15 mg p.o. provided
--- NOTE | 2023-12-02 12:43 | CM ---
Case management following for d/c planning
Referral sent in [facility]
Tata from [facility] reports they can accept
Pt will need covid prior to d/c
Plan - anticipate [facility] snf when medically ready
[2023-12-02] MEDS: SAMSCA 15 MG PO (13:19)
[2023-12-02 14:36] LABS: Osmolality Urine 189 mOsm/kg (300-900)
[2023-12-02 15:11] LABS: Urine Sodium 10 mmol/L (30-90)
[2023-12-02 15:50] VITALS: BP 125/67
[2023-12-02] MEDS: MILK OF MAGNESIA 30 ML PO (16:51)
[2023-12-02] MEDS: LIPITOR 10 MG PO (21:10)
[2023-12-02] MEDS: ZYPREXA 2.5 MG PO (21:10)
[2023-12-02] MEDS: MELATONIN 3 MG PO (22:49)
[2023-12-02 23:20] VITALS: BP 122/54
[2023-12-03 04:37] VITALS: BMI 26.3
[2023-12-03 05:53] LABS: % Basophils 0.5 % (0-2); % Eosinophils 1.5 % (0-6); % Immature Granulocytes 0.5 % (0-0.5); % Lymphocytes 8.4 % (20.5-51.1); % Monocytes 16.6 % (1.7-9.3); % Neutrophils 72.5 % (42.2-75.2); Absolute Basophils 0.1 10^3/uL (0-0.2); Absolute Eosinophils 0.2 10^3/uL (0-0.7); Absolute Immature Granulocytes 0.1 10^3/uL (0-0.05); Absolute Monocytes 1.9 10^3/uL (0.1-0.6); Absolute Neutrophils 8.2 10^3/uL (1.4-6.5); Hematocrit 32.7 % (37.0-47.0); Hemoglobin 10.6 g/dL (12.0-16.0); Mean Corp Hgb Conc. 32.4 g/dL (33.0-37.0); Mean Corpuscular Hgb 28.8 pg (27.0-31.0); Mean Corpuscular Volume 88.9 fL (81.0-99.0); Mean Platelet Volume 10.3 fL (7.4-10.4); Nucleated Red Blood Cells % 0 %; Platelet Count 297 10^3/uL (130-400); Red Blood Cell Count 3.68 10^6/uL (4.20-5.40); Red Cell Dist. Width 15.1 % (11.5-14.5); White Blood Cell Count 11.4 10^3/uL (4.8-10.8)
[2023-12-03 06:48] LABS: Blood Urea Nitrogen 22 mg/dl (7-17); Calcium 9.1 mg/dl (8.4-10.2); Carbon Dioxide 25 mmol/L (22-30); Chloride 103 mmol/L (98-107); Estimated Creatinine Clearance 39 ml/min; Glucose 105 mg/dl (70-99); Potassium 4.9 mmol/L (3.5-5.1); Sodium 134 mmol/L (135-145); eGFR > 60.00
--- NOTE | 2023-12-03 07:44 | W.PN.ORTHO ---
Today's Communication / Plan
-
78 yo F POD3 following her revision ORIF left periprosthetic humerus fracture under the direction of Dr. Alcantar
--Sling for immobilization. Strict non-weight bearing to left upper extremity.
--Hold chemoprophylaxis for DVT at this time. SCDs.
--Patient exhibiting signs concerning for radial nerve injury, with partial sensation suggesting more likely neuropraxia. Continue to monitor distal sensation and wrist drop with OT recommendations and splinting to avoid contracture
--Maintain surgical dressings until 2 weeks post-op. Follow up outpatient for repeat x-rays and staple removal.
--Hgb 10.3. Continue to monitor.
-- Internal medicine and nephrology on board; appreciate recommendations and assistance in the management this patient
--Continue current pain management regimen.
--Case management consult for d/c planning. Patient is primary caregiver for her , and would benefit from home care.
Assessment
.
Dressing:
Clean, dry and intact.
Plan
.
Surgery / Date: Revision ORIF left humerus fracture, [place], 11/29
Activity:
Out of bed.
PT/OT
Subjective
.
.:
Patient resting comfortably.
Vital Signs and Labs
.
Vital Signs and Labs:
Lab Results
12/03/23 05:31
12/03/23 05:31
Temp Pulse Resp BP Pulse Ox
98 F 78 19 122/54 95
12/02/23 23:20 12/02/23 23:20 12/02/23 23:20 12/02/23 23:20 12/02/23 23:20
Physical Exam
-
Dressing show mild strikethrough the central bandage. She has mild sensation intact to the radial nerve dermatome and is able to hold some mild extension but able to demonstrate active range of motion significantly for the radial nerve/PIN.
Otherwise brisk capillary refill 2 seconds motor function intact to the AIN PIN interosseous nerves
[2023-12-03] MEDS: SENOKOT 17.1999999999999993 MG PO (07:49)
[2023-12-03] MEDS: PROTONIX 40 MG PO (07:49)
[2023-12-03] MEDS: ZESTRIL 20 MG PO (07:49)
[2023-12-03] MEDS: WELLBUTRIN XL (24 hour extended release) 300 MG PO (07:49)
[2023-12-03] MEDS: COLACE 100 MG PO (07:49)
[2023-12-03] MEDS: FEOSOL 325 MG PO (07:51)
[2023-12-03 07:58] VITALS: BP 179/85
[2023-12-03 09:49] VITALS: BP 132/71; PULSE 84; O2SAT 98
--- NOTE | 2023-12-03 12:23 | W.PN.HOSP.TC ---
Today's Communication/Plan
-
monitor vitals
see plan
continue with fluids restriction
likely can restart lexapro on dc; nephrology to see today
dc planning per primary team
Assessment / Plan
Assessment / Plan
General: Well Developed, Well Nourished and No Apparent Distress
HEENT: Normocephalic, Moist Mucous Membranes and Atraumatic
Respiratory: Clear
Cardiac: S1/S2, Regular Rhythm and Murmur (+3/6 ESTRELLITA)
GI: Soft, Non Tender, Non Distended and Normal Bowel Sounds
Musculoskeletal: No Clubbing, No Cyanosis, No Edema and Other (+LUE in sling)
Skin: Negative Rash
Neuro: Awake, Alert, Oriented, AO x 3, No Motor Deficits (Noting limitation of LUE. ) and Nonfocal/Grossly Intact
Psych: Calm
POD#2 Revision ORIF Left Humerus
- S/P Left ORIF 07/2023. Failure of hardware with nonunion.
pain management
PT/OT
sling LUE
defer chemical ppx to ortho
appears does have some radial nerve damage;management per ortho
Acute Hypoxic Respiratory insufficiency secondary to atelectasis
- Pt requiring 2LNC post-operatively.
Chest x-ray consistent with atelectasis, continue IS
now on room air
Acute Hyponatremia - does have chronic hyponatremia it appears like but it went down to as low as 124. Seen by nephrology and was ordered Samsca along with fluid restriction. Na now 134. Lexapro on hold, likely can continue on dc. advice patient
on fluid restriction as she tends to drink lots of free water
Severe Aortic Stenosis
- TTE 07/2023: EF 60-65%, Mod-Severe with AV area 0.9cm^2
- Pt being observed with [facility] [employer] [facility] at [facility], no current plans for intervention
- Monitor volume status/preload in setting of transfusion closely.
Anemia
suspect anemia of chronic disease
- S/P 2u PRBC intraoperatively. Reassess for chemical DVT ppx pending stability.
- No further GIB since discharge.
Atrial Arrhythmia - Noted on last admission. Suspected SVT for Atrial Tachycardia. She is not on any AVNB.
CAD/HTN/HLD - BP stable. Continue home zehra-i/statin. No longer on aspirin therapy.
Hx GIB - S/P EGD last admission. Duodenal ulcer noted. Continue home PPI BID. No further bleeding reported. Consider guaiac testing if any s/s.
Anxiety / Depression / Insomnia
-on Lexapro, bupropion and Zyprexa
-Continue Ambien prn
Code Status: Full
Anticipated Discharge: Within 24 hours
Subjective/Interval History
-
Date of Service: December 03, 2023
denies pain
Objective Data
-
Labs:
Laboratory Results
12/03/23
05:31
WBC 11.4 H
Hgb 10.6 L
Hct 32.7 L
Plt Count 297
Sodium 134 L D
Potassium 4.9
Chloride 103
Carbon Dioxide 25
BUN 22 H
Creatinine 0.9
Glucose 105 H
Calcium 9.1
Vital Signs:
Vital Signs
Temp Pulse Resp BP Pulse Ox
98.2 F 74 16 179/85 98
12/03/23 07:58 12/03/23 07:58 12/03/23 07:58 12/03/23 07:58 12/03/23 07:58
I&O
12/02/23 12/03/23 12/04/23
06:59 06:59 06:59
Intake Total 1320 / 1320 1400 / 1400
Balance 1320 / 1320 1400 / 1400
--- NOTE | 2023-12-03 13:00 | W.PN.NEPH.PH ---
Today's Communication / Plan
-
FR
Assessment/Plan
-
Impression:
Euvolemic hyponatremia
Postop revision of ORIF of left humerus
Severe aortic stenosis
Anemia
history of SVT and atrial tachycardia
CAD
HTN
Hx of GIB
Anxiety depression
Plan:
-of celexa for now
-maintain FR
-follow BMP
-no samsca for now
-
-
Date of Service: December 03, 2023
CC / HPI / ROS
-
Chief Complaint:
hyponatremia
History of Present Illness:
Na up to 134 with samsca
BP stable
pain controlled
Review of Systems:
no CP/SOB
Labs
-
Labs:
WBC 11.4 10^3/uL (4.8-10.8) H 12/03/23 05:31
RBC 3.68 10^6/uL (4.20-5.40) L 12/03/23 05:31
Hgb 10.6 g/dL (12.0-16.0) L 12/03/23 05:31
Hct 32.7 % (37.0-47.0) L 12/03/23 05:31
Plt Count 297 10^3/uL (130-400) 12/03/23 05:31
Sodium 134 mmol/L (135-145) L D 12/03/23 05:31
Potassium 4.9 mmol/L (3.5-5.1) 12/03/23 05:31
Chloride 103 mmol/L (98-107) 12/03/23 05:31
Carbon Dioxide 25 mmol/L (22-30) 12/03/23 05:31
BUN 22 mg/dl (7-17) H 12/03/23 05:31
Creatinine 0.9 mg/dL (0.6-1.0) 12/03/23 05:31
eGFR > 60.00 12/03/23 05:31
Glucose 105 mg/dl (70-99) H 12/03/23 05:31
Calcium 9.1 mg/dl (8.4-10.2) 12/03/23 05:31
Physical Exam
-
Vital Signs:
Vital Signs
Temp Pulse Resp BP Pulse Ox
98.2 F 74 16 179/85 98
12/03/23 07:58 12/03/23 07:58 12/03/23 07:58 12/03/23 07:58 12/03/23 07:58
Cardiovascular:: Regular rate and rhythm
Respiratory:: Bilateral: CTA
Lung Excursion:: Normal
Abdomen:: Nontender and Soft
Bowel Sounds:: Normal
Extremity Edema:: None: Bilateral:
--- NOTE | 2023-12-03 14:31 | CM ---
Addendum entered by Monika Regalado 12/03/23 15:56:
Patient now wants skilled placement bed is available at [facility]. patint will need COVID test.
[facility]
Report [phone]

Original Note:
mine safety manager reviewed patient's chart and met with patient and behavioral health case manager discussed physical therapy notes and physical therapy recommends home with home health, behavioral health case manager cancelled the bed at [facility] and patient will return to home with
[facility].
Plan; Home with [facility].
--- NOTE | 2023-12-03 14:40 | VNURNOTE ---
[facility]ES[facility] resumption of care completed in [facility] after review of chart and discussion with patient's daughter in law. Patient currently working with OT.
[2023-12-03 14:58] VITALS: BP 132/64
--- NOTE | 2023-12-03 16:02 | W.DCSUMMARY ---
Discharge Summary
Discharge Data
Date of Admission: 11/30/23
Date of Discharge: 12/03/23
Total time spent discharging patient (in min): 70
-
Pending Results: Yes
Additional Pending Results:
Pending confirm negative COVID test
Hospital Course
78-year-old female who underwent open reduction internal fixation of a periprosthetic left humerus fracture approximately [address] Alcantar who initially did well but upon further x-rays with chronic edema she was noted to have loosening
of her hardware at her fracture site. There is no recalled specific injury. Decision was made to proceed with operative approach revision open reduction internal fixation. Surgery was uncomplicated; the patient was given 2 units of blood
intraoperatively however this was planned in advance with her primary care physician. She had a Gram stain that was performed intraoperatively which was negative for sign of infection is the reason for nonunion. The patient recovered in PACU and
was transferred to the floor. The patient was noted to have some weakness of her wrist and paresthesia in the radial nerve dermatome with slight return of sensation but postoperative day 3 suggesting likely neuropraxia. She was also followed by
internal medicine and nephrology postoperatively with a brief episode of hyponatremia which was improved with Samsca. Her vital signs were normal at time of discharge with recheck and pain control. She initially required 2 L nasal cannula
postoperatively for atelectasis but progressed towards room air. She was recommended on discharge for her hyponatremia for fluid restriction. At the time of discharge, the patient was noted to be tolerating a regular diet, ambulating with adherence
to weight bearing and activity restrictions, and had pain controlled on oral medications. Given the level of incapacitation and for safety reasons the patient was recommended for transition to a assisted facility which was arranged by the
caser in. Prior to discharge, the patient was provided with appropriate discharge/follow up/return instructions, and discharge medications.
Discharge Plan
-
Patient Disposition: [facility]/SNF
Discharge Diagnosis/Procedures: Left reverse total shoulder arthroplasty periprosthetic fracture revision ORIF with Dr. Alcantar
Condition: Good
Diet: No restrictions
Activity: Other activity
Additional Activity: Sling to left upper extremity while ambulatory and active. May perform elbow wrist and hand range of motion. No shoulder range of motion. Okay to shower. Nonweightbearing to left upper extremity.
Driving Restrictions: Not until seen by your Dr
Bathing Restrictions: OK to Shower
Other Services: PT and OT
Wound Care: Maintain current dressings to upper extremity. Plan for staple removal 2 weeks from date of surgery which can be done at assisted living or at our office. [place] are removed at assisted facility plan for surgical follow-up at 4
weeks from date of surgery for wound check and x-rays. Aquacel dressing may be removed 7 to 10 days from surgery
Instructions: Open Reduction and Internal Fixation Surgery (DC)
Referrals:
Jonathan Chaney MD [Family Provider] -
Willard Alcantar MD [Active] - (Please contact the office at [phone] to schedule or confirm 2-week postoperative visit from date of surgery)
Prescriptions:
Continued
zolpidem [Ambien] 5 mg Tablet
5 mg PO HS PRN (Reason: sleep)
escitalopram oxalate 20 mg Tablet
20 mg PO DAILY
bupropion HCl 300 mg Tablet Extended Release 24 Hr
300 mg PO DAILY
simvastatin 10 mg Tablet
10 mg PO HS
olanzapine [Zyprexa] 2.5 mg Tablet
2.5 mg PO HS
lisinopril 20 mg Tablet
20 mg PO DAILY
melatonin
1 tab PO HSPRN PRN (Reason: sleep)
Patient Comments:
11/10/2023, sublingual dissolvable tablets per pt.
acetaminophen [Pain Relief ES (acetaminophen)] 500 mg tablet
1,000 mg PO TID PRN (Reason: mild pain)
pantoprazole [Protonix] 40 mg tablet,delayed release (DR/EC)
40 mg PO BID
Slow Release Iron
45 mg PO .3 TIMES PER WEEK
Discharge Orders:
Discharge Patient (As Directed); Ordered 12/03/23
Ordered By: Roland Monteiro
Discharge Date and Time
Print Language: VINCENTIAN
--- NOTE | 2023-12-03 16:07 | W.DS.TRANS ---
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
-
Discharge Instructions:
Sleep Apnea Risk Low
Discharge Diagnosis/Procedures Left reverse total shoulder arthroplasty
periprosthetic fracture revision ORIF with
Ritting
Diet No restrictions
Activity Other activity
Additional Activity Sling to left upper extremity while ambulatory
and active. May perform elbow wrist and hand
range of motion. No shoulder range of motion.
Okay to shower. Nonweightbearing to left upper
extremity.
Driving Restrictions Not until seen by your Dr
Bathing Restrictions OK to Shower
Other Services PT,OT
Wound Care Maintain current dressings to upper extremity.
Plan for staple removal 2 weeks from date of
surgery which can be done at assisted living or
at our office. [place] are removed at skilled
nursing facility plan for surgical follow-up at
4 weeks from date of surgery for wound check and
x-rays. Aquacel dressing may be removed 7 to 10
days from surgery
Instructions: Open Reduction and Internal Fixation Surgery (DC)
Stand-Alone Forms:
Changes to Home Medications: No
Discharge Medications:
DC Medications w/original date entered in [facility]
bupropion HCl 300 mg 24 hr tablet, extended release 300 mg PO DAILY Depression 06/01/22
escitalopram oxalate 20 mg tablet 20 mg PO DAILY Depression 06/01/22
zolpidem 5 mg tablet (Ambien) 5 mg PO HS PRN sleep 06/01/22
olanzapine 2.5 mg tablet (Zyprexa) 2.5 mg PO HS Mental Health/Anxiety 07/25/23
simvastatin 10 mg tablet 10 mg PO HS High Cholesterol 07/25/23
acetaminophen 500 mg tablet (Pain Relief Extra Strength (acetaminophen)) 1,000 mg PO TID PRN mild pain 11/10/23
lisinopril 20 mg tablet 20 mg PO DAILY Blood Pressure 11/10/23
melatonin 1 tab PO HSPRN PRN sleep 11/10/23
pantoprazole 40 mg tablet,delayed release (Protonix) 40 mg PO BID Gastrointestinal Issue 11/15/23
Slow Release Iron 45 mg PO .3 TIMES PER WEEK Supplement 11/29/23
Home Medication Changes
Pending Results: Yes
Additional Pending Results:
Negative COVID test
[2023-12-03 16:41] LABS: COVID-19 Antigen Negative (Negative)
== END 2023-12-03 17:15 | disposition home health service (06) | DRG 493 ==
LOC: 2 SOUTH 06:19
PROVIDERS: Internal Medicine; Physician Assistant Surgical; ADMITTING PHYSICIAN Orthopaedic Surgery Hand Surgery; CONSULT PHYSICIAN Specialist; FAMILY PHYSICIAN Internal Medicine; OTHER PHYSICIAN Internal Medicine
PROC: 0PSD04Z Reposition Left Humeral Head with Internal Fixation Device, Open Approach (ICD-10-PCS; 2023-11-30)
DX: M97.32XA Periprosthetic fracture around internal prosthetic left shoulder joint, initial encounter (principal); E22.2 Syndrome of inappropriate secretion of antidiuretic hormone; J98.11 Atelectasis; F41.9 Anxiety disorder, unspecified; F32.A Depression, unspecified; I10 Essential (primary) hypertension; R09.02 Hypoxemia; R06.89 Other abnormalities of breathing; I35.0 Nonrheumatic aortic (valve) stenosis; D64.9 Anemia, unspecified; Z11.52 Encounter for screening for COVID-19
CPT/HCPCS: 36415; 71045; 73020; 73060; 76000; 80048; 80053; 83930; 83935; 84300; 84443; 85014; 85018; 85025; 85027; 86850; 86900; 86901; 86920; 87205; 87811; 93005; 97110; 97116; 97163; 97167; 97530; 97535; P9016

== ENCOUNTER 2024-08-24 10:35 | Emergency (ER) | payer MEDICARE, OTHER, SELFPAY ==
[2024-08-24 10:51] VITALS: BP 152/70
--- NOTE | 2024-08-24 11:17 | ED.GENMED ---
History of Present Illness
General
Chief Complaint: Musculo-Skeletal Complaint
Source: patient
Exam Limitations: none
Time Seen by Provider: 08/24/24 11:01
History of Present Illness
History of Present Illness:
79yo [id number] female with a history of coronary artery disease, aortic stenosis, hypertension, hyperlipidemia, and 2 prior left shoulder surgeries presenting with her for evaluation after a fall 3 hours ago. Patient was walking
with her rolling walker at the gym this morning. She states that she was rushing and tripped. She fell directly on her left shoulder. She also struck her head but denies any loss of consciousness. She was able to range the left shoulder
immediately afterwards but pain was gradually worsening so she decided to come to the ED. Patient also has some left-sided neck discomfort as well as a mild headache. Patient had a left distal humerus ORIF [place] [address] Alcantar. She also had a
second surgery after this because 'it did not heal right.' She currently takes a baby aspirin daily.
Past History
Past History
ED Past Medical History: Asthma, CAD, Cancer (Squamous cell), GERD, HTN, Hypercholesterolemia, Valvular disease, Psychiatric (Depression) and Other (Peptic ulcer disease, aortic stenosis, chronic kidney disease, peripheral vascular disease)
ED Past Surgical History: Cholecystectomy, Orthopedic (Right and left shoulder replacement, Left humorous ), Tonsilectomy and Other (Cataracts)
Social History
Tobacco: Former smoker
Alcohol: Occasional
Drug: None
Personal:
Living: with family
Employment: Employed
Phy Exam
General Physical Exam
General Presentation: well appearing and no apparent distress
General age: appears stated age
General Skin: warm and dry
General Habitus: normal
General Mental: alert
ENT Exam
ENT Exam: normocephalic and other (+L cervical tenderness. No midline spinous process tenderness although patient had pain with neck extension)
Additional ENT: No external signs of head trauma
Eye Exam
Eye Exam: PERRL
Neurological Exam
Neurological Exam: alert
Isabela Coma Scale
Eye Opening: Spontaneous
Verbal Response: Oriented
Motor Response: Obeys Commands
GCS Total Score: 15
Musculoskeletal Exam
Musculoskeletal Exam: other (L shoulder: No deformity or swelling. ROM decreased 2/2 pain. ROM of L elbow/wrist intact. 2+ ulnar pulse. )
Skin Exam
Skin Exam: normal color and warm/dry
Psychiatric Exam
Psychiatric Exam: normal mood/affect
Course
Orders/Labs/Results
Orders:
Orders
08/24/24 10:53
Shoulder, Left, Trauma CR [CR Shoulder, Trauma - Left] Urgent
Comment: hx replacment
Reason For Exam: fell and landed on left shoulder
08/24/24 11:16
CT Cervical Spine W/o Iv Contr Urgent
Comment:
Reason For Exam: fall, neck pain
CT Head W/o Iv Contrast Urgent
Comment:
Reason For Exam: fall, head strike
Ice Pack-Treatment DIRECTED
Location: L shoulder
Oxycodone/Acetaminophen [Percocet 5/325] 1 tablet PO NOW STA
Vital Signs
Initial and Last Documented VS:
Initial Vital Signs
Temp Pulse Resp BP Pulse Ox
98.3 F 81 16 152/70 98
08/24/24 10:51 08/24/24 10:51 08/24/24 10:51 08/24/24 10:51 08/24/24 10:51
Last Documented Vital Signs
Temp Pulse Resp BP Pulse Ox
98.3 F 84 16 149/81 96
08/24/24 10:51 08/24/24 14:35 08/24/24 14:35 08/24/24 14:35 08/24/24 14:35
MDM/Problems Addressed
Differential Diagnosis Includes:
79yoF here after a fall. Tripped and fell on her L shoulder and struck L side of head. No LOC. Hx of prior surgeries to L arm. On a baby aspirin daily. VSS. No deformity noted on exam. ROM of shoulder is decreased. LUE is neurovascularly intact. No
external signs of head trauma on exam and there is L cervical tenderness. Differential diagnosis includes but is not limited to: fracture, dislocation, closed head injury, intracranial hemorrhage
Initial ED plan: Check L shoulder x-rays, CT head, and CT cervical spine. Percocet for pain.
*Critical Care Note
Total Time (30-74mins, 75-104mins- exclusive of procedures): Not Applicable
Update Note
Update Note:
Left shoulder x-rays are negative for fracture and dislocation. Head CT shows air-fluid level in the left maxillary sinus suggesting sinusitis 'however, if there is clinical suspicion for orbital floor fracture, CT of the facial bones could be
performed for further evaluation as the orbital floor is not well visualized on this examination.' No maxillary or periorbital tenderness on exam to suggest orbital floor fracture. She does report a 'head cold' x 2 weeks with congestion. No
indication for hospitalization at this time. She was advised to follow-up with her PCP as well as orthopedics if shoulder pain persists. ED return precautions discussed. Patient in agreement with plan and was discharged in stable condition.
ED Attending Note
-
Portions of this chart may have been created with voice recognition software.� Occasional wrong word or��sound alike� substitutions may have occurred due to the inherent limitations of voice recognition software.
Discharge Plan
Departure
Patient Disposition: Home (Routine Discharge)
Date of Disposition: 08/24/24
Time of Disposition: 14:34
Patient with high blood pressure during this ER visit?: Yes
Discharge Problem:
Fall from slip, trip, or stumble, Left shoulder pain, Closed head injury
Instructions: Muscle and Bone Pain (DC), Fall Prevention for Older Adults
Prescriptions:
No Action
zolpidem [Ambien] 5 mg Tablet
5 mg PO HS PRN (Reason: sleep)
escitalopram oxalate 20 mg Tablet
20 mg PO DAILY
bupropion HCl 300 mg Tablet Extended Release 24 Hr
300 mg PO DAILY
simvastatin 10 mg Tablet
10 mg PO HS
olanzapine [Zyprexa] 2.5 mg Tablet
2.5 mg PO HS
lisinopril 20 mg Tablet
20 mg PO DAILY
melatonin
1 tab PO HSPRN PRN (Reason: sleep)
Patient Comments:
11/10/2023, sublingual dissolvable tablets per pt.
acetaminophen [Pain Relief ES (acetaminophen)] 500 mg tablet
1,000 mg PO TID PRN (Reason: mild pain)
pantoprazole [Protonix] 40 mg tablet,delayed release (DR/EC)
40 mg PO BID
Slow Release Iron
45 mg PO .3 TIMES PER WEEK
Referrals:
Jonathan Chaney MD [Family Provider] -
Activity Restrictions/Additional Instructions:
Apply ice to affected area. Continue taking codeine as needed.
Please follow-up with your family doctor and orthopedics if your shoulder pain persists. Return to the ER with any new or worsening symptoms.
Interventions
Interventions:
*Risk Screen - Suicide Last Done: 08/24/24 10:51
*General Assessment Last Done: 08/24/24 12:00
*Neglect/Abuse Screening Last Done: 08/24/24 10:51
ED- Fall Risk Assessment Last Done: 08/24/24 14:35
*ED COVID-19 Vaccine History Last Done: 08/24/24 12:00
*Nursing Disposition Last Done: 08/24/24 14:35
ED-Musculoskeletal Assessment Last Done: 08/24/24 12:00
Discharge Date and Time
Discharge Date/Time: 08/24/24 14:35
Print Language: YI
[2024-08-24] MEDS: PERCOCET 5/325 1 TABLET PO (12:08)
[2024-08-24 14:35] VITALS: BP 149/81
== END 2024-08-24 14:35 | disposition home or self-care (01) ==
LOC: EMR 10:35
PROVIDERS: EMERGENCY PHYSICIAN Student in an Organized Health Care Education/Training Program; FAMILY PHYSICIAN Internal Medicine
DX: M25.512 Pain in left shoulder (principal); S09.90XA Unspecified injury of head, initial encounter; W01.0XXA Fall on same level from slipping, tripping and stumbling without subsequent striking against object, initial encounter; Y93.01 Activity, walking, marching and hiking; I25.10 Atherosclerotic heart disease of native coronary artery without angina pectoris; I35.0 Nonrheumatic aortic (valve) stenosis; J45.909 Unspecified asthma, uncomplicated; I12.9 Hypertensive chronic kidney disease with stage 1 through stage 4 chronic kidney disease, or unspecified chronic kidney disease; N18.9 Chronic kidney disease, unspecified; E78.00 Pure hypercholesterolemia, unspecified; I38 Endocarditis, valve unspecified; K27.9 Peptic ulcer, site unspecified, unspecified as acute or chronic, without hemorrhage or perforation; I73.9 Peripheral vascular disease, unspecified; F32.A Depression, unspecified; K21.9 Gastro-esophageal reflux disease without esophagitis; Z79.82 Long term (current) use of aspirin; Z87.891 Personal history of nicotine dependence; Z90.49 Acquired absence of other specified parts of digestive tract; Z96.612 Presence of left artificial shoulder joint
CPT/HCPCS: 99284; 70450; 72125; 73030

== ENCOUNTER 2024-09-05 10:26 | Emergency (ER) | payer MEDICARE, OTHER, SELFPAY ==
[2024-09-05 10:55] VITALS: BP 121/104
--- NOTE | 2024-09-05 10:56 | ED.MUSCINJ ---
HPI-Injury
<Va Sullivan DISCHARGING MACHINE OPERATOR - Last Filed: 09/05/24 10:59>
General
Chief Complaint: Musculo-Skeletal Complaint
Time Seen by Provider: 09/05/24 11:33
<Jeremias Penny Jr., PA-C - Last Filed: 09/05/24 12:36>
General
Source: patient
Exam Limitations: none
Nursing documentation reviewed up to this point in time: agreed with
History of Present Illness-Injury
Is this injury a work related problem?: No
Is pt an associate of [facility]?: No
Initial Injury comments:
79-year-old female presenting to the emergency department with left-sided scapular discomfort after using her left arm to help her posture herself up and orthopedic visit yesterday. [place] sharp pain to the upper back ongoing symptoms since. Denies
additional trauma. No numbness or weakness
ED Provider Triage
<Va Sullivan DISCHARGING MACHINE OPERATOR - Last Filed: 09/05/24 10:59>
-
Patient seen by provider in Triage?: Seen in Triage
Attestation: A medical screening examination has been initiated by a qualified medical provider. Based on the assessment performed at this time, it has been determined that an emergent medical condition may exist and the patient has been informed
that further medical evaluation and possible additional diagnostic testing may be needed.
HPI: 79-year-old female presents for annual left shoulder pain after laying on her stomach on a table at the orthopedic doctors office yesterday to get injections into the 'backs of my legs.' Shortly after that her left shoulder started hurting and
it has gotten progressively worse. States she slept well during the night but as soon as she got up and moved today 'it kills.'
GENERAL: Alert , in no apparent distress
EYE: No visual abnormalities.
NECK: Trachea midline
ENT: No visible abnormalities.
LUNGS: No acute respiratory distress
NEUROLOGICAL: Alert and oriented
SKIN: Skin intact. No visible changes.
MUSCULOSKELETAL: Moving extremities normally
PSYCH: Normal and appropriate interaction.
This is a medical evaluation conducted in person to initiate diagnostic evaluation and provide initial therapeutics. Please see further documentation by the treating clinician.
Past History
<Va Sullivan DISCHARGING MACHINE OPERATOR - Last Filed: 09/05/24 10:59>
Past History
ED Past Medical History: Asthma, CAD, Cancer (Squamous cell), GERD, HTN, Hypercholesterolemia, Valvular disease, Psychiatric (Depression) and Other (Peptic ulcer disease, aortic stenosis, chronic kidney disease, peripheral vascular disease)
ED Past Surgical History: Cholecystectomy, Orthopedic (Right and left shoulder replacement, Left humorous ), Tonsilectomy and Other (Cataracts)
Social History
Tobacco: Former smoker
Alcohol: Occasional
Drug: None
Personal:
Living: with family
Employment: Employed
Review of Systems
<Jeremias Penny Jr., PA-C - Last Filed: 09/05/24 12:36>
Review of Systems
Allergies reviewed?: Yes
All Other Systems: ROS reviewed and negative except as documented in HPI and ROS
Phy Exam
<Jeremias Penny Jr., PA-C - Last Filed: 09/05/24 12:36>
Physical Exam
Physical Exam:
GENERAL: Alert , in no apparent distress
EYE: pupils equal and reactive
NECK: Supple, no significant adenopathy.
ENT: o/p clr, mmm.
CARDIAC: Regular rate and rhythm .
LUNGS: Clear breath sounds bilaterally, no acute respiratory distress, no wheezes/rales/rhonchi
ABDOMEN: Soft, without focal tenderness, no r/g, no cvat
NEUROLOGICAL: Alert and oriented, no focal neuro deficits
SKIN: Warm and dry, skin intact.
MUSCULOSKELETAL: Significant discomfort to the top of the left scapula. Does not want a move at the shoulder. Good range of motion of the elbow and wrist. No edema, well perfused.
PSYCH: Normal and appropriate interaction.
Injury Course
<Va Sullivan DISCHARGING MACHINE OPERATOR - Last Filed: 09/05/24 10:59>
Orders/Labs/Results
Orders:
Orders
09/05/24 10:58
Shoulder, Left, Trauma CR [CR Shoulder, Trauma - Left] Urgent
Comment:
Reason For Exam: pain after laying on table at ortho office
09/05/24 12:05
Sling Left-Treatment ONCE
09/05/24 12:27
Oxycodone/Acetaminophen [Percocet 5/325] 1 tablet PO NOW STA
<Jeremias Penny Jr., PA-C - Last Filed: 09/05/24 12:36>
Orders/Labs/Results
Orders:
Orders
09/05/24 10:58
Shoulder, Left, Trauma CR [CR Shoulder, Trauma - Left] Urgent
Comment:
Reason For Exam: pain after laying on table at ortho office
09/05/24 12:05
Sling Left-Treatment ONCE
09/05/24 12:27
Oxycodone/Acetaminophen [Percocet 5/325] 1 tablet PO NOW STA
<Jeremias Penny Jr., PA-C - Last Filed: 09/05/24 12:36>
MDM/Problems Addressed
MDM/Problems Addressed:
79-year-old female presenting to the emergency department today with concerns of left shoulder discomfort since yesterday. Here she is found to have a scapular fracture. This was discussed with Ortho with recommendations of follow-up with
outpatient orthopedics and should be given a sling. Otherwise stable for outpatient management return precautions given.
<Jeremias Penny Jr., PA-C - Last Filed: 09/05/24 12:36>
*Critical Care Note
Total Time (30-74mins, 75-104mins- exclusive of procedures): Not Applicable
ED Attending Note
<Va Sullivan NP - Last Filed: 09/05/24 10:59>
-
Portions of this chart may have been created with voice recognition software.� Occasional wrong word or��sound alike� substitutions may have occurred due to the inherent limitations of voice recognition software.
Discharge Plan
Departure
Patient Disposition: Home (Routine Discharge)
Date of Disposition: 09/05/24
Time of Disposition: 12:34
Patient with high blood pressure during this ER visit?: No
Condition: Good
Covid-19: Not Applicable
Discharge Problem:
Fracture, scapula
Instructions: Shoulder Blade Fracture (DC)
Prescriptions:
No Action
zolpidem [Ambien] 5 mg Tablet
5 mg PO HS PRN (Reason: sleep)
escitalopram oxalate 20 mg Tablet
20 mg PO DAILY
bupropion HCl 300 mg Tablet Extended Release 24 Hr
300 mg PO DAILY
simvastatin 10 mg Tablet
10 mg PO HS
olanzapine [Zyprexa] 2.5 mg Tablet
2.5 mg PO HS
lisinopril 20 mg Tablet
20 mg PO DAILY
melatonin
1 tab PO HSPRN PRN (Reason: sleep)
Patient Comments:
11/10/2023, sublingual dissolvable tablets per pt.
acetaminophen [Pain Relief ES (acetaminophen)] 500 mg tablet
1,000 mg PO TID PRN (Reason: mild pain)
pantoprazole [Protonix] 40 mg tablet,delayed release (DR/EC)
40 mg PO BID
Slow Release Iron
45 mg PO .3 TIMES PER WEEK
Referrals:
Jonathan Chaney MD [Family Provider] -
Willard Alcantar MD [Active] - Follow up in 5-7 days
Activity Restrictions/Additional Instructions:
You came to the emergency department today with concerns of left-sided shoulder discomfort. You are found to have a scapular fracture. Please wear the sling and follow-up closely with orthopedics. Return for any worsening, new or concerning
symptoms.
Interventions
Interventions:
*Risk Screen - Suicide Last Done: 09/05/24 10:55
*General Assessment Last Done: 09/05/24 10:55
*Neglect/Abuse Screening Last Done: 09/05/24 10:55
*ED COVID-19 Vaccine History Last Done: 09/05/24 11:33
ED-Musculoskeletal Assessment Last Done: 09/05/24 11:33
Discharge Date and Time
Print Language: LITHUANIAN
[2024-09-05] MEDS: PERCOCET 5/325 1 TABLET PO (12:35)
[2024-09-05 12:41] VITALS: BP 140/77
== END 2024-09-05 12:59 | disposition home or self-care (01) ==
LOC: EMR 10:26
PROVIDERS: EMERGENCY PHYSICIAN Student in an Organized Health Care Education/Training Program; FAMILY PHYSICIAN Internal Medicine
DX: S42.102A Fracture of unspecified part of scapula, left shoulder, initial encounter for closed fracture (principal); M54.6 Pain in thoracic spine; X58.XXXA Exposure to other specified factors, initial encounter; Y93.89 Activity, other specified; Y92.531 Health care provider office as the place of occurrence of the external cause; I25.10 Atherosclerotic heart disease of native coronary artery without angina pectoris; E78.00 Pure hypercholesterolemia, unspecified; I12.9 Hypertensive chronic kidney disease with stage 1 through stage 4 chronic kidney disease, or unspecified chronic kidney disease; N18.9 Chronic kidney disease, unspecified; J45.909 Unspecified asthma, uncomplicated; K21.9 Gastro-esophageal reflux disease without esophagitis; I73.9 Peripheral vascular disease, unspecified; I35.0 Nonrheumatic aortic (valve) stenosis; F32.A Depression, unspecified; Z85.89 Personal history of malignant neoplasm of other organs and systems; Z87.11 Personal history of peptic ulcer disease; Z87.891 Personal history of nicotine dependence; Z90.49 Acquired absence of other specified parts of digestive tract
CPT/HCPCS: 99283; 73030

== ENCOUNTER 2025-02-20 08:42 | Emergency (ER) | payer MEDICARE, OTHER, SELFPAY ==
[2025-02-20 08:50] VITALS: BP 188/88
[2025-02-20 09:07] VITALS: BP 182/79
[2025-02-20 09:31] VITALS: BMI 27.0
[2025-02-20 09:35] VITALS: BP 182/79
--- NOTE | 2025-02-20 10:30 | ED.GENMED ---
History of Present Illness
General
Chief Complaint: Swelling
Source: patient and spouse
Exam Limitations: none
Time Seen by Provider: 02/20/25 09:07
Nursing documentation reviewed up to this point in time: agreed with
History of Present Illness
History of Present Illness:
80-year-old female with a past medical history of hypertension, hyperlipidemia, GERD, asthma who presents to the emergency room for evaluation of swelling in the arm and leg. Patient reports that over the past few days she started noticed increased
swelling in her left arm as well as her left leg. She denies any pain or skin changes. She denies any trauma or injury. She denies any other complaints including chest pain, shortness of breath. She says that has never had similar symptoms in
the past and so she came to the ER to be evaluated. On chart review she was admitted to this hospital in November 2023 for with edema left upper extremity edema that was felt to be related to loosening of her hardware from prior fracture which
required revision.
Past History
Past History
ED Past Medical History: Asthma, CAD, Cancer (Squamous cell), GERD, HTN, Hypercholesterolemia, Valvular disease, Psychiatric (Depression) and Other (Peptic ulcer disease, aortic stenosis, chronic kidney disease, peripheral vascular disease)
ED Past Surgical History: Cholecystectomy, Orthopedic (Right and left shoulder replacement, Left humorous ), Tonsilectomy and Other (Cataracts)
Social History
Tobacco: Former smoker
Alcohol: Occasional
Drug: None
Personal:
Living: with family
Employment: Employed
Review of Systems
Review of Systems
All Other Systems: ROS reviewed and negative except as documented in HPI and ROS
Constitutional: Denies fever
Respiratory: Denies trouble breathing
Cardiac: Denies chest pain or palpitations
ABD/GI: Denies abdominal pain, nausea or vomiting
: Denies flank pain
Musculoskeletal: Reports edema; Denies neck pain or back pain
Neurological: Denies dizzy or headache
Phy Exam
Physical Exam
Physical Exam:
General: Awake, alert, oriented x3; no acute distress
Head: Normocephalic, atraumatic
Eyes: Conjunctiva normal, sclera anicteric
Throat: Airway intact, handling secretions
Neck: Trachea midline, no JVD
Lungs: Clear to auscultation bilaterally, no wheezing, rales, rhonchi
Heart: Systolic murmur, regular rate and rhythm
Abd: Soft, non distended, nontender
Neuro: No gross deficits
Extremities: Patient has +2 pitting edema in the left upper extremity and left lower extremity; she has +1 pitting edema in the right lower extremity, no appreciable edema in the right upper extremity; good pulses throughout, no skin
changes/erythema although she does have some scattered old appearing bruises on the extremities
Scores
Heart Failure Risk
Heart Failure Risk Score: Not Applicable
Heart Score for Chest Pain Patients
STEMI patient?: Not applicable
Withdrawal Assessment of Alcohol
Withdrawal Assessment Completed?: Not applicable
Course
Orders/Labs/Results
Orders:
Orders
02/20/25 09:08
US Periph Venous LOWER Ext LT Urgent
Comment:
Reason For Exam: LLE swelling
02/20/25 09:20
Complete Blood Count/With Diff Urgent
Comprehensive Metabolic Panel Urgent
Urinalysis Reflex To Culture Urgent
Date Specimen was Collected: 02/20/25
Time Specimen was Collected: 09:14
Urine Microscopic Reflex Cult Urgent
02/20/25 09:23
Periph Venous Upr Ext Left US [US Periph Venous UPPER Ext LT] Urgent
Comment:
Reason For Exam: LUE swelling
02/20/25 09:24
Electrocardiogram (*1) Urgent
Reason for Study: Heart Failure, Left
EKG- Treatment ONCE
NT-proBNP Urgent
CR Chest - 2 Views Urgent
Comment:
Reason For Exam: edema, eval for signs of CHF
02/20/25 10:37
CR Humerus - Left Min 2 Views* Urgent
Comment:
Reason For Exam: LUE swelling
Abnormal Lab Results
02/20/25
09:20
RBC 3.55 L 10^6/uL
(4.20-5.40)
Hgb 11.5 L g/dL
(12.0-16.0)
Hct 34.9 L %
(37.0-47.0)
MCH 32.4 H pg
(27.0-31.0)
MPV 11.4 H fL
(7.4-10.4)
Abs Immat Gran (auto) 0.1 H 10^3/uL
(0-0.05)
Absolute Neuts (auto) 6.9 H 10^3/uL
(1.4-6.5)
Absolute Lymphs (auto) 0.8 L 10^3/uL
(1.2-3.4)
Absolute Monos (auto) 0.7 H 10^3/uL
(0.1-0.6)
Immature Gran % 1.1 H %
(0-0.5)
Neutrophils % 79.1 H %
(42.2-75.2)
Lymphocytes % 9.0 L %
(20.5-51.1)
BUN 25 H mg/dl
(7-17)
Total Protein 5.6 L g/dl
(6.3-8.2)
Urine Ketones 2+ A
(Negative)
Urine Urobilinogen 2+ A
(Neg - 1+)
Urine Albumin (Reflex) 1+ A
(Neg - Trace)
02/20/25 09:20
02/20/25 09:20
Vital Signs
Initial and Last Documented VS:
Initial Vital Signs
Temp Pulse Resp BP Pulse Ox
36.9 C 73 16 188/88 99
02/20/25 08:50 02/20/25 08:50 02/20/25 08:50 02/20/25 08:50 02/20/25 08:50
Last Documented Vital Signs
Temp Pulse Resp BP Pulse Ox
36.4 C 82 20 182/79 99
02/20/25 09:35 02/20/25 09:35 02/20/25 09:35 02/20/25 09:35 02/20/25 10:37
MDM/Problems Addressed
Differential Diagnosis Includes:
Dependent edema, DVT, nephrotic syndrome, lymphedema, congestive heart failure
MDM/Problems Addressed:
80-year-old female presents with swelling in the left arm and left leg without pain, no injury or trauma. She is hypertensive but otherwise normal vitals. Physical exam as above�notably she has an unusual distribution of edema in the left arm and
left leg; there is some edema in the right leg as well but not as pronounced. Will plan to check ultrasound of the left arm and leg to rule out DVT. Will check chest x-ray, proBNP. Check humerus x-ray. Send basic labs and a urinalysis. Will
reassess after the above.
Ultrasound of the arm shows no evidence of DVT. Ultrasound of the leg shows no evidence of DVT but does show Rocha's cyst versus hematoma in the calf. I had a long discussion with the patient about these findings and on further detailed
questioning she does admit that she had a minor fall 3 days ago but did not think that she had any serious injuries. Suspect this could be a calf hematoma versus a ruptured Rocha's cyst causing her left leg swelling. It sounds like there is always
some degree of swelling in the left arm after her surgery it is worse than usual she is status post x-ray showed no issues with hardware. She has no signs of heart failure and no signs of DVT. Arm swelling could be related to her recent fall as
well. We are awaiting results of her urine and blood studies. Certainly her chest x-ray showed no signs of congestive heart failure. In my judgment, if the rest of the workup is reassuring she can be discharged with [place]anning wrap on the left leg and
can follow-up in the office with her primary doctor.
Labs reviewed: CBC shows marginal anemia, CMP no clinically significant abnormalities. Her urinalysis appears slightly contaminated there was +1 albumin in urine, total protein serum 5.6 without hypoalbuminemia, not nephrotic range. Suspect this
is likely traumatic as described above. I think she is stable for discharge and in fact patient is requesting discharge at this point. She will need to follow-up with primary care doctor, we specifically spoke about her blood pressure. All
questions answered.
Acute Exacerbation and/or Progression of Chronic Illness:
Acutely hypertensive
Acute Exacerbation and/or Progression of Chronic Illness: HTN
*Radiology
Radiology exam reviewed: radiology read reviewed
*Pulse Oximetry
SaO2: 99
Oxygen Mode of Delivery: Room air
Patient hypoxic: no (99%)
*Critical Care Note
Total Time (30-74mins, 75-104mins- exclusive of procedures): Not Applicable
Data Reviewed
Review of Other/Old Records Reveals: Labs and Records
Source: patient and spouse
ED Attending Note
-
Portions of this chart may have been created with voice recognition software.� Occasional wrong word or��sound alike� substitutions may have occurred due to the inherent limitations of voice recognition software.
Discharge Plan
Departure
Patient Disposition: Home (Routine Discharge)
Date of Disposition: 02/20/25
Time of Disposition: 12:51
Patient with high blood pressure during this ER visit?: Yes
Discharge Problem:
Edema of left upper extremity, Edema of left lower extremity, Hematoma of left lower leg, Hypertension
Instructions: Dependent Edema (DC), BLOOD PRESSURE, Hematoma
Prescriptions:
No Action
zolpidem [Ambien] 5 mg Tablet
5 mg PO HS PRN (Reason: sleep)
escitalopram oxalate 20 mg Tablet
20 mg PO DAILY
bupropion HCl 300 mg Tablet Extended Release 24 Hr
300 mg PO DAILY
simvastatin 10 mg Tablet
10 mg PO HS
olanzapine [Zyprexa] 2.5 mg Tablet
2.5 mg PO HS
lisinopril 20 mg Tablet
20 mg PO DAILY
melatonin
1 tab PO HSPRN PRN (Reason: sleep)
Patient Comments:
11/10/2023, sublingual dissolvable tablets per pt.
acetaminophen [Pain Relief ES (acetaminophen)] 500 mg tablet
1,000 mg PO TID PRN (Reason: mild pain)
pantoprazole [Protonix] 40 mg tablet,delayed release (DR/EC)
40 mg PO BID
Slow Release Iron
45 mg PO .3 TIMES PER WEEK
Referrals:
Jonathan Chaney MD [Family Provider] - Follow up in 2-3 days
Activity Restrictions/Additional Instructions:
You should follow-up with your primary doctor within the next week to be reassessed after ER visit.
Thank you for visiting the Emergency Department at [facility].
1. Please schedule a follow up appointment as directed. Call first thing tomorrow morning to make an appointment.
2. If indicated, please take your medications as instructed and indicated on discharge paperwork.
3. If any of your symptoms do not improve, or persist, or become more severe within 6-12 hours, please return to the emergency department for further care.
4. Please return to the emergency department if you develop a headache, neck pain/stiffness, fever greater than 100.4F, chest pain, shortness of breath, persistent nausea, vomiting, slurred speech, difficulty walking, numbness/tingling, weakness,
signs of infection or any other symptoms that are worrisome to you.
Please call [phone] if you have any questions.
Interventions
Interventions:
*Risk Screen - Suicide Last Done: 02/20/25 08:50
*General Assessment Last Done: 02/20/25 09:35
*Neglect/Abuse Screening Last Done: 02/20/25 08:50
*ED- Fall Risk Assessment Last Done: 02/20/25 09:35
*ED COVID-19 Vaccine History Last Done: 02/20/25 09:35
ED- Cardiac Assessment Last Done: 02/20/25 09:35
ED- Pulmonary Assessment Last Done: 02/20/25 09:35
ED-Skin Assessment Last Done: 02/20/25 09:35
Discharge Date and Time
Print Language: [id number]
[2025-02-20 11:30] VITALS: BP 163/74
[2025-02-20 12:20] LABS: Hematocrit 34.9 % (37.0-47.0); Hemoglobin 11.5 g/dL (12.0-16.0); Mean Corp Hgb Conc. 33.0 g/dL (33.0-37.0); Mean Corpuscular Volume 98.3 fL (81.0-99.0); Nucleated Red Blood Cells % 0 %; Platelet Count 210 10^3/uL (130-400); Red Cell Dist. Width 13.5 % (11.5-14.5)
[2025-02-20 12:22] LABS: Urine Character Clear (Clear)
[2025-02-20 12:32] LABS: ALT (SGPT) 13 U/L (0-35); AST (SGOT) 19 U/L (14-36); Albumin 3.7 g/dl (3.5-5.0); Alkaline Phosphatase 91 U/L (38-126); Blood Urea Nitrogen 25 mg/dl (7-17); Calcium 8.8 mg/dl (8.4-10.2); Carbon Dioxide 30 mmol/L (22-30); Chloride 106 mmol/L (98-107); Estimated Creatinine Clearance 45 ml/min; Glucose 83 mg/dl (70-99); Potassium 3.8 mmol/L (3.5-5.1); Sodium 137 mmol/L (135-145); Total Protein 5.6 g/dl (6.3-8.2); eGFR > 60.00
[2025-02-20 12:36] LABS: Urine Red Blood Cell 0-2 /HPF (0-2); Urine Squamous Cell 0-2 /LPF (Few); Urine White Cell 0-2 /HPF (0-5)
[2025-02-20 13:20] VITALS: BP 146/81
== END 2025-02-20 13:29 | disposition home or self-care (01) ==
LOC: EMR 08:42
PROVIDERS: EMERGENCY PHYSICIAN Emergency Medicine; FAMILY PHYSICIAN Internal Medicine
DX: R60.0 Localized edema (principal); S80.12XA Contusion of left lower leg, initial encounter; X58.XXXA Exposure to other specified factors, initial encounter; M79.89 Other specified soft tissue disorders; I13.0 Hypertensive heart and chronic kidney disease with heart failure and stage 1 through stage 4 chronic kidney disease, or unspecified chronic kidney disease; N18.9 Chronic kidney disease, unspecified; M71.22 Synovial cyst of popliteal space [Baker], left knee; E78.00 Pure hypercholesterolemia, unspecified; F32.A Depression, unspecified; I35.0 Nonrheumatic aortic (valve) stenosis; I25.10 Atherosclerotic heart disease of native coronary artery without angina pectoris; I73.9 Peripheral vascular disease, unspecified; R01.1 Cardiac murmur, unspecified; K21.9 Gastro-esophageal reflux disease without esophagitis; M19.90 Unspecified osteoarthritis, unspecified site; F41.9 Anxiety disorder, unspecified; J45.909 Unspecified asthma, uncomplicated; Z96.612 Presence of left artificial shoulder joint; Z96.611 Presence of right artificial shoulder joint; Z87.891 Personal history of nicotine dependence; Z85.828 Personal history of other malignant neoplasm of skin; Z87.11 Personal history of peptic ulcer disease; Z91.81 History of falling; Z90.49 Acquired absence of other specified parts of digestive tract
CPT/HCPCS: 99285; 71046; 73060; 80053; 81003; 81015; 85025; 93005; 93971